=== PATIENT | male | born 1960 | race African-American/Black ===

== ENCOUNTER 2020-05-08 09:27 | Outpatient (REF) | payer MEDICARE, MEDICAID, SELFPAY ==
[2020-05-08 11:08] LABS: MANUAL DIFF FLAG NO
[2020-05-08 11:12] LABS: Basophils Percent Auto 0.2 % (0-2); Eosinophils Absolute Auto 0.2 X10*3/uL (0.0-0.4); Eosinophils Percent Auto 2.9 % (0-4); Hematocrit 39.9 % (42-52); Hemoglobin 12.9 g/dl (14.0-18.0); Imm Gran Abs Auto 0.01 X10*3/uL (0.00-0.03); Imm Gran Pct Auto 0.2 % (0.0-0.4); Lymphocytes Absolute Auto 1.6 X10*3/uL (1.2-4.9); Lymphocytes Percent Auto 29.2 % (20-40); Mean Corpuscular HGB Conc 32.3 g/dl (31.0-36.0); Mean Corpuscular Hemoglobin 30.1 pg (27.0-33.0); Mean Corpuscular Volume 93.2 fL (80-98); Mean Platelet Volume 10.9 fL (9.4-12.4); Monocytes Absolute Auto 0.7 X10*3/uL (0.1-1.2); Monocytes Percent Auto 12.8 % (2-11); Neutrophils Percent Auto 54.7 % (45-73); Platelet Count 270 X10*3/uL (160-400); Red Blood Count 4.28 X10*6/uL (4.60-5.80); Red Cell Distribution Width 15.9 % (11.0-16.0); White Blood Count 5.5 X10*3/uL (4.8-10.8)
[2020-05-08 11:40] LABS: Alanine Aminotransferase 11 U/L (0-40); Albumin Level 4.3 g/dL (3.5-5.0); Alkaline Phosphatase 98 U/L (39-117); Anion Gap 11 (12-20); Aspartate Amino Transferase 22 U/L (5-37); Bilirubin Total 0.7 mg/dL (0.0-1.0); Blood Urea Nitrogen 15 mg/dL (9-16); Calcium 9.6 mg/dL (8.4-10.2); Carbon Dioxide 27 mmol/L (22-29); Chloride 108 mmol/L (96-108); Cholesterol 180 mg/dL; Estimated Glomerular Filt Rate > 60; Glucose Fasting 87 mg/dL (60-99); HDL Cholesterol 39 mg/dL; LDL Cholesterol Calculated 127 mg/dl; Potassium 4.1 mmol/l (3.3-5.1); Sodium 142 mmol/L (135-145); Total Protein 7.6 g/dL (6.5-8.0); Triglycerides 72 mg/dL
== END 2020-05-08 09:28 | disposition home or self-care (01) ==
LOC: HO.HMGCLDS 09:27
PROVIDERS: PCP Internal Medicine; Visit Provider Internal Medicine
DX: I10 Essential (primary) hypertension (principal); E78.89 Other lipoprotein metabolism disorders; R09.81 Nasal congestion; Z86.73 Personal history of transient ischemic attack (TIA), and cerebral infarction without residual deficits
CPT/HCPCS: 36415; 80053; 80061; 85025

== ENCOUNTER → 2020-06-06 14:55 | Outpatient (BNVA) | payer MEDICARE, MEDICAID, SELFPAY | PROVIDERS: PCP Internal Medicine; Referring Provider Internal Medicine; Visit Provider Nurse Practitioner Family | DX: Z01.818 Encounter for other preprocedural examination (principal); I69.351 Hemiplegia and hemiparesis following cerebral infarction affecting right dominant side; Z79.02 Long term (current) use of antithrombotics/antiplatelets | CPT/HCPCS: 99212 ==

== ENCOUNTER → 2020-06-27 09:06 | Outpatient (BNVA) | payer MEDICARE, MEDICAID, SELFPAY | PROVIDERS: PCP Internal Medicine; Referring Provider Internal Medicine; Visit Provider Internal Medicine | DX: Z01.810 Encounter for preprocedural cardiovascular examination (principal); I10 Essential (primary) hypertension; E78.5 Hyperlipidemia, unspecified; Z86.73 Personal history of transient ischemic attack (TIA), and cerebral infarction without residual deficits | CPT/HCPCS: 93005; 99202 ==

== ENCOUNTER 2020-07-12 09:58 | Outpatient (REF) | payer MEDICARE, MEDICAID, SELFPAY ==
--- NOTE | 2020-07-12 10:01 | US_ITS ---
EXAMINATION: US EXTRACRANIAL CAROTID DUPLEX, BILATERAL CLINICAL INFORMATION: Occlusion and stenosis bilateral carotid arteries. COMPARISON: None. TECHNIQUE: Real-time ultrasound and Doppler techniques (integrating B-mode 2-D vascular images, Doppler spectral analysis and color-flow Doppler imaging) were utilized to interrogate the extracranial carotid arteries, the vertebral arteries and proximal subclavian arteries bilaterally. The degree of stenosis is determined by criteria similar to NASCET. FINDINGS: Right Side: 1. There is no atherosclerotic plaque seen in the bifurcation/proximal ICA region. 2. The common carotid artery PSV proximally is 98 cm/s and distally 100 cm/s. 3. The proximal internal carotid artery velocities are 76 cm/s systolic and 79 cm/s diastolic. 4. The proximal external carotid artery PSV is 132 cm/s. 5. The vertebral artery shows antegrade flow. 6. The subclavian artery waveforms are normal. Left Side: 1. There is soft atherosclerotic plaque seen in the bifurcation/proximal ICA region. 2. The common carotid artery PSV proximally is 123 cm/s and distally 98 cm/s. 3. The proximal internal carotid artery velocities are 45 cm/s systolic and 17 cm/s diastolic. 4. The proximal external carotid artery PSV is 87 cm/s. 5. The vertebral artery shows antegrade flow, increased systolic and diastolic velocity, likely a pre-steal phenomena or distal vertebral artery increased resistance. 6. The subclavian artery waveforms are normal. Incidental noted is bilateral enlarged thyroid gland with multiple nodules. The largest right gland nodule measures 1.9 1.3-1.7 cm and the largest left thyroid gland nodule measures 2.5 x 2.4 x 2.3 cm. Also visualized is a small lymph node at the right bifurcation measuring 2.6 x 1.0 x 1.5 cm. US/US carotid duplex BI IMPRESSION: 1. RIGHT: No hemodynamically significant stenosis seen in the carotid artery. 2. LEFT: No hemodynamically significant stenosis in the left carotid artery. 3. There is normal antegrade flow seen in the left vertebral artery. 4. Enlarged thyroid gland with multiple nodules, consistent with goiter. Recommend ultrasound of thyroid gland. A small lymph node is seen at the right carotid bifurcation measuring 2.6 cm.
== END 2020-07-12 09:59 | disposition home or self-care (01) ==
LOC: HO.US 09:58
PROVIDERS: PCP Internal Medicine; Visit Provider Internal Medicine
DX: I63.9 Cerebral infarction, unspecified (principal); I65.23 Occlusion and stenosis of bilateral carotid arteries
CPT/HCPCS: 93880

== ENCOUNTER → 2020-07-20 08:32 | Outpatient (REF) | payer MEDICARE, MEDICAID, SELFPAY ==
--- NOTE | 2020-07-20 | NM_ITS ---
Lexiscan Myocardial perfusion study Indication: Preoperative cardiac evaluation, assess for coronary disease and ischemia Technique: The patient was brought in for a Lexiscan perfusion study on 07/20/2020 and was injected 0.4 mg of Lexiscan intravenously. Within a minute of this injection 30 mCi of sestamibi was given intravenously. Images were obtained using the SPECT gamma camera interlaced with the gating device. Images were obtained in supine position. Resting perfusion study was performed on 07/23/2020. Patient was administered 30 mCi of sestamibi intravenously at rest. Images were then obtained in supine position. Total DLP 69mGy-cm. Images were processed with the software and compared side to side in short axis, horizontal long axis and vertical long axis views. Findings: Raw acquisition was reviewed. The stress perfusion study showed no significant perfusion abnormality. Both uncorrected as well as CT attenuation corrected images were reviewed. The gated study shows normal LV systolic function with calculated LVEF of 60%. LV cavity is normal in size. The gated study shows normal wall thickening and contraction of segments. Resting study shows no significant perfusion abnormality. Gating at rest reveals normal wall motion with ejection fraction at 54%. The findings are consistent with no definite reversible or fixed perfusion abnormality. NM/NM joshua perf SPECT rest & str Impression: 1. Myocardial perfusion imaging study shows likely normal myocardial perfusion. No evidence of any ischemia or infarction. 2. Gated LVEF is 60% during stress; 54% during rest. 3. Transient ischemic dilatation not present. EKG component of the test reported separately.
--- NOTE | 2020-07-20 08:35 | CA_ITS ---
Transthoracic Echocardiogram Patient (Last, First, Middle): Madeleine Singh, Gender: Male Date of : 1960 Age: 60 Procedure Date: 07/20/2020 Procedure Type: Transthoracic Echocardiogram Location: OP Height: 185.42 cm Weight: 99.79 kg BSA: 2.24 m2 Heart Rate: bpm BP: 152 / 78 mmHg Restorative Aide: Referring MD: Kj Anderson MD Symptoms: I25.10 - Atherosclerotic heart disease of grindstone coronary artery without angina pectoris Conclusions: - Normal left ventricular cavity size. There is severely increased left ventricular wall thickness. The left ventricular systolic function is hyperdynamic. - There is dynamic mid left ventricular obstruction. - E/E prime ratio is between 8 and 15 consistent with indeterminate filling pressures. - The left atrium is mildly dilated. - No significant valvular or pericardial pathology. Findings Left Ventricle Normal left ventricular cavity size. There is severely increased left ventricular wall thickness. The left ventricular systolic function is hyperdynamic. The visually estimated ejection fraction is >70%. There is no evidence of regional wall motion abnormalities. There is no dynamic left ventricular outflow tract obstruction. There is dynamic mid left ventricular obstruction. Abnormal diastolic function is noted. Spectral Doppler is indicative of a pseudonormal filling pattern. E/E prime ratio is between 8 and 15 consistent with indeterminate filling pressures. Right Ventricle Normal right ventricular cavity size and systolic function. Atria The left atrium is mildly dilated. Aortic Valve Normal aortic valve structure and function. There is no aortic valve stenosis. There is no aortic valve regurgitation. Mitral Valve Normal mitral valve structure and function. There is no mitral valve regurgitation. There is no mitral valve stenosis. Pulmonic Valve Normal pulmonic valve structure and function. There is trace pulmonic valve regurgitation. Tricuspid Valve Normal tricuspid valve structure and function. There is trace tricuspid valve regurgitation. Normal right atrial pressure. There is no evidence of pulmonary hypertension. Great Vessels All visible segments of the aorta are normal in size. The visualized portions of the pulmonary artery and branches are normal. Venous The inferior vena cava is normal in size and collapses greater than 50% with inspiration. Pericardium/Pleural There is no evidence of pericardial effusion. Prior Study Comparison No prior study available for comparison. Measurements 2D Linear Measurements RVIDd: 2.85 RVIDd Index: 1.27 IVSd: 1.41 0.6-0.9/0.6-1.0 cm LVIDd: 4.52 3.9-5.3/4.2-5.9 cm LVIDd Index: 2.02 2.4-3.2/2.2-3.1 cm/m2 LVIDs: 2.93 2.0-3.6 cm LVPWd: 1.73 0.7-1.1 cm Ao Root: 3.10 2.1-3.5 cm LA Diam: 4.10 2.7-3.8/3.0-4.0 cm LAIDs Index: 1.83 1.5-2.3 cm/m2 LV Mass: 371.39 67-162/88-224 g LV Mass Index: 165.80 43-95/49-115 g/m2 LVOT Diam: 2.00 3.0+(-)1.3 cm 2D Systolic Function EF 4C: 60.30 >55% EF 2C: 63.20 >55% EF BiP: 63.00 >55% Mitral Valve MV Pk E: 0.70 MV PK A: 0.67 MV Decel Time: 226.00 E/A: 1.00 E'Lateral: 5.87 E'Medial: 5.87 E/E' Med: 12.00 E/E' Lat: 12.00 Aortic Valve AoV Pk Guy: 1.81 AoV Mn Guy: 1.19 AoV VTI: 0.38 AoV Pk Grad: 13.00 Aov Mn Grad: 7.00 BELÉN Cont.VTI: 2.67 LVOT LVOT Pk Guy: 1.31 LVOT Mn Guy: 0.92 LVOT VTI: 0.32 LVOT Pk Grad: 7.00 LVOT Mn Grad: 4.00 LVOT Diam: 2.00 LVOT Area: 3.14 Diastolic Function MV Pk E: 0.70 MV Pk A: 0.67 E/A: 1.00 E'Medial: 5.87 E/E' Med: 12.00 E' Laterial: 5.87 E/E' Lat: 12.00 Tricuspid Valve TR Pk Guy: 2.52 TR Pk Grad: 25.00 RA Press: 8.00 RVSP: 33.00 Great Vessels Aorta Ao Root-2D: 3.10 2.0-3.7 cm Ao Asc: 3.30 2.1-3.4 cm Ao Arch: 3.60 Updated in Other Vendor System with Status of Final Samuel Rowe MD electronically signed on 07/20/2020 12:26:03 PM with status of Final
== END ==
LOC: HO.CARD 08:32
PROVIDERS: Visit Provider Internal Medicine
DX: I25.10 Atherosclerotic heart disease of native coronary artery without angina pectoris (principal); Z86.73 Personal history of transient ischemic attack (TIA), and cerebral infarction without residual deficits
CPT/HCPCS: 78452; 93017; 93225; 93306; A9500; J0280; J2785

== ENCOUNTER → 2020-07-25 08:55 | Outpatient (BNVA) | payer MEDICARE, MEDICAID, SELFPAY | PROVIDERS: PCP Internal Medicine; Visit Provider Internal Medicine | DX: Z01.810 Encounter for preprocedural cardiovascular examination (principal); I63.9 Cerebral infarction, unspecified; I10 Essential (primary) hypertension; E78.5 Hyperlipidemia, unspecified | CPT/HCPCS: 99212 ==

== ENCOUNTER 2020-08-23 07:53 | Outpatient (REF) | payer MEDICARE, MEDICAID, SELFPAY ==
--- NOTE | 2020-08-23 07:56 | US_ITS ---
EXAMINATION: US THYROID CLINICAL INFORMATION: Nontoxic multinodular goiter. Male age 60. COMPARISON: None TECHNIQUE: Linear transducer hernandez-scale and color Doppler examination with attention to the region of the thyroid. FINDINGS: SIZE: The gland is enlarged. Measurements of the thyroid lobes and nodules are given in sagittal, anteroposterior and transverse dimensions respectively. Right Thyroid Lobe: 6.2 x 2.7 x 2.6 cm, volume 22.8 mL. Parenchyma: The gland echotexture is homogeneous. Thyroid vascularity is normal. Left Thyroid Lobe: 6.2 x 2.8 x 2.9 cm, volume 26.3 mL. Parenchyma: The gland echotexture is homogeneous. Thyroid vascularity is normal. Isthmus: 0.7 cm in maximum AP dimension. RIGHT THYROID LOBE: There are 2 nodules seen. 1. Location: Middle. Size: 1.6 x 1.4 x 1.2 cm. Nodule characteristics: Heterogeneous solid with punctate internal cystic change and scattered peripheral internodular color flow. No calcification. 2. Location: Inferior. Size: 0.5 x 0.4 x 0.5 cm. Nodule characteristics: Heterogeneous solid with fine peripheral hypoechoic halo. No calcification or color flow. ISTHMUS: No nodules. LEFT THYROID LOBE: There are 4 nodules seen. 1. Location: Superior. Size: 0.5 x 0.4 x 0.6 cm. Nodule characteristics: Solid mild hypoechoic heterogeneous, no calcification. Scant color flow. 2. Location: Middle. Size: 1.0 x 0.6 x 1.1 cm. Nodule characteristics: Heterogeneous solid with some fine peripheral cystic component and mild internal color flow. No calcification. 3. Location: Inferior. Size: 2.5 x 2.3 x 2.4 cm. Nodule characteristics: Heterogeneous solid with scattered internal macrocalcification and some scattered color flow. 4. Location: Inferior. Size: 0.8 x 0.6 x 0.7 cm. Nodule characteristics: Heterogeneous cystic/solid. No calcification or color flow. NODES: No lymphadenopathy is seen in the tissue surrounding the thyroid gland. US/US thyroid IMPRESSION: 1. Enlarged gland with scattered small solid nodules. No visible adenopathy. 2. Dominant heterogeneous solid nodule 2.5 cm with macrocalcification left lobe lower pole. Ultrasound-guided fine-needle aspiration recommended.
== END 2020-08-23 07:54 | disposition home or self-care (01) ==
LOC: HO.US 07:53
PROVIDERS: PCP Internal Medicine; Visit Provider Internal Medicine
DX: E04.2 Nontoxic multinodular goiter (principal)
CPT/HCPCS: 76536

== ENCOUNTER → 2020-08-28 09:08 | Outpatient (BNVA) | payer MEDICARE, MEDICAID, SELFPAY | PROVIDERS: PCP Internal Medicine; Referring Provider Internal Medicine; Visit Provider Internal Medicine Endocrinology, Diabetes & Metabolism | DX: Z76.89 Persons encountering health services in other specified circumstances (principal) | CPT/HCPCS: 99202 ==

== ENCOUNTER 2020-08-28 10:05 | Outpatient (REF) | payer MEDICARE, MEDICAID, SELFPAY ==
[2020-08-29 11:08] LABS: Thyroglobulin Antibodies <1 IU/mL (< or = 1); Thyroid Peroxidase Antibodies <1 IU/mL (<9)
[2020-08-30 07:37] LABS: Thyroid Stimulating Hormone 0.71 uIU/mL (0.32-4.0)
== END 2020-08-28 10:06 | disposition home or self-care (01) ==
LOC: HO.10HDL 10:05
PROVIDERS: Visit Provider Internal Medicine Endocrinology, Diabetes & Metabolism
DX: Z13.89 Encounter for screening for other disorder (principal)
CPT/HCPCS: 36415; 83520; 84439; 84443; 84445; 86376; 86800; 99202

== ENCOUNTER 2020-08-28 10:24 | Outpatient (REF) | payer MEDICARE, MEDICAID, SELFPAY | END 2020-08-28 10:25 | disposition home or self-care (01) | LOC: HO.LAB 10:24 | PROVIDERS: PCP Internal Medicine; Visit Provider Internal Medicine | DX: R13.10 Dysphagia, unspecified (principal); E04.2 Nontoxic multinodular goiter; Z20.822 Contact with and (suspected) exposure to COVID-19 | CPT/HCPCS: 36415; 83520; 84439; 84443; 84445; 86376; 86800; 99202; C9803; U0003 ==

== ENCOUNTER 2020-09-13 08:58 | Outpatient (REF) | payer MEDICARE, MEDICAID, SELFPAY ==
--- NOTE | 2020-09-13 09:37 | PM.OP ---
Brief Operative Note Date of Service: 09/13/20 Pre-op diagnosis: NONTOXIC MULTINODULAR GOITER Post-op diagnosis: same Procedure: This procedure was explained to the patient. Alternatives, risks and benefits were discussed. Written consent was obtained. After sterile preparation of the skin, fine-needle aspiration biopsy of left lower pole thyroid nodule, size 2.5 x 2.3 x 2.4 cm was performed under direct ultrasound guidance to confirm accurate needle placement. Three passes were performed with 27 gauge needles. Sample was submitted to cytology, initial cytology reading was adequate. Two passes were dedicated for [employer] genomic sequencing social media senior associate test. Second fine-needle aspiration biopsy of right mid pole thyroid nodule, size 1.6 x 1.4 x 1.2 cm was performed under direct ultrasound guidance to confirm accurate needle placement. Three passes were performed with 27 gauge needles. Sample was submitted to cytology, initial cytology reading was non diagnostic , three extra passes with 25 gauge needles were performed. Two passes were dedicated for [employer] genomic sequencing social media senior associate test. Patient tolerated procedure well. Aftercare instructions were provided. Impression: uncomplicated fine-needle aspiration biopsy of left lower pole and right mid pole thyroid nodules under direct ultrasound guidance. Surgeon: Cynthia Ugalde MD Anesthesia: local (Lidocaine 1 % 2 ml) Estimated blood loss (mL): 0 Condition: stable Disposition: same day
[2020-09-13] MEDS: Lidocaine HCl 1 % MPF 5 ML VIAL SUBCUT (11:31)
== END 2020-09-13 08:59 | disposition home or self-care (01) ==
LOC: HO.US 08:58
PROVIDERS: Visit Provider Internal Medicine Endocrinology, Diabetes & Metabolism
DX: E04.2 Nontoxic multinodular goiter (principal)
CPT/HCPCS: 10005; 10006; 88172; 88173; 88177

== ENCOUNTER 2020-09-24 11:55 | Outpatient (REF) | payer MEDICARE, MEDICAID, SELFPAY | END 2020-09-24 11:56 | disposition home or self-care (01) | LOC: HO.LAB 11:55 | PROVIDERS: PCP Internal Medicine; Visit Provider Internal Medicine | DX: Z20.822 Contact with and (suspected) exposure to COVID-19 (principal) | CPT/HCPCS: 36415; C9803; U0003; U0005 ==

== ENCOUNTER → 2020-09-26 08:19 | Outpatient (BNVA) | payer MEDICARE, MEDICAID, SELFPAY | PROVIDERS: PCP Internal Medicine; Visit Provider Internal Medicine Endocrinology, Diabetes & Metabolism | CPT/HCPCS: Q3014 ==

== ENCOUNTER 2020-10-11 09:13 | Day surgery (SDC) | payer MEDICARE, MEDICAID, SELFPAY ==
[2020-08-08 19:52] VITALS: BMI 28.2
--- NOTE | 2020-08-13 08:28 | HO.ANESPROP2 ---
HPI - Anesthesia Eval Consult details Narrative: 60yo M for Colonoscopy Cardiac Cleared @ low risk *Plavix* Pt resecheduled to October 2020 d/t having a cold. [facility] Past Medical History Medical History (Updated 08/08/20 @ 19:56 by Claritza Mcdonough RN) Cerebrovascular accident Coronary artery disease History of stroke Hypertension, essential Lipid disorder Other and unspecified hyperlipidemia Family History Family History Father Dementia Mother HTN (hypertension) Surgical History Surgical History History of colonoscopy Social History Social History Alcohol intake: current Alcohol intake frequency: holidays/special occasions only Alcohol type: beer Smoking Status: Never smoker Meds Allergies Allergy/AdvReac Type Severity Reaction Status Date / Time No Known Allergies Allergy Verified 08/08/20 19:59 Home Medications Medication Instructions Recorded Confirmed Type lisinopril 20 mg tablet 20 mg PO DAILY 05/23/20 08/08/20 History clopidogrel 1 tab PO DAILY 08/09/20 08/09/20 History sertraline 1 tab PO BEDTIME 08/09/20 08/09/20 History Exam Exam Date and Time: August 13, 2020 0828 Height,Weight and Vital Signs: Height 6 ft 2 in Weight 99.79 kg Pertinent Lab Results Pertinent Lab Results: Laboratory Tests 05/08/20 05/08/20 09:36 09:36 WBC 5.5 Hgb 12.9 L Hct 39.9 L Plt Count 270 Sodium 142 Potassium 4.1 Chloride 108 Carbon Dioxide 27 BUN 15 Creatinine 1.05 Narrative Narrative: ECHO 07/20/20 Conclusions: - Normal left ventricular cavity size. There is severely increased left ventricular wall thickness. The left ventricular systolic function is hyperdynamic. - There is dynamic mid left ventricular obstruction. - E/E prime ratio is between 8 and 15 consistent with indeterminate filling pressures. - The left atrium is mildly dilated. - No significant valvular or pericardial pathology. EKG 06/2020: NSR @ 67; Nonspecific T wave abn US carotid duplex BILAT IMPRESSION: 1. RIGHT: No hemodynamically significant stenosis seen in the carotid artery. 2. LEFT: No hemodynamically significant stenosis in the left carotid artery. 3. There is normal antegrade flow seen in the left vertebral artery. 4. Enlarged thyroid gland with multiple nodules, consistent with goiter. Recommend ultrasound of thyroid gland. A small lymph node is seen at the right carotid bifurcation measuring 2.6 cm. NM joshua perf SPECT rest & str Impression: 1. Myocardial perfusion imaging study shows likely normal myocardial perfusion. No evidence of any ischemia or infarction. 2. Gated LVEF is 60% during stress; 54% during rest. 3. Transient ischemic dilatation not present. Assessment and Plan Assessment Anesthesia Assessment: Chart Reviewed
[2020-10-05 18:57] VITALS: BMI 28.8
--- NOTE | 2020-10-10 12:24 | P.CONAN_ITS ---
Documented by User: Yessi Alicea 10/10/20 12:26 HPI - Anesthesia Eval Consult details Narrative: 60yo M for Colonoscopy Cardiac Cleared @ low risk *Plavix* Pt resecheduled from Aug 2020 d/t URI. PMFSH Active Problems Active Problems: All Active Problems (Updated 08/28/20 @ 11:59 by Cynthia Ugalde MD) Dysphagia (Acute) Non-toxic multinodular goiter (Acute) Colon cancer screening (Acute) Preoperative cardiovascular examination (Acute) Herpes zoster (Acute) Multiple thyroid nodules (Acute) Other and unspecified hyperlipidemia (Acute) Cerebrovascular accident (Acute) Coronary artery disease (Acute) History of stroke (Acute) Lipid disorder (Acute) Hypertension, essential (Acute) Past Medical History Medical History Cerebrovascular accident Coronary artery disease Dysphagia History of stroke Hypertension, essential Lipid disorder Non-toxic multinodular goiter Other and unspecified hyperlipidemia Family History Family History Father Dementia Mother HTN (hypertension) Surgical History Surgical History History of colonoscopy Social History Social History Household Members: Spouse Alcohol intake: current Alcohol intake frequency: holidays/special occasions only Alcohol type: beer Smoking Status: Never smoker Use of substances other than those prescribed or required for medical reasons: No Substance Use Frequency: Weekly Advance Directives: No Advance Directives Information Provided: No Advance Directives on File: No Meds Allergies Allergy/AdvReac Type Severity Reaction Status Date / Time No Known Allergies Allergy Verified 10/05/20 18:57 Home Medications Medication Instructions Recorded Confirmed Last Taken Type lisinopril 20 mg tablet 20 mg PO DAILY 05/23/20 09/26/20 Unknown History metoprolol tartrate 50 mg tablet 50 mg PO BID tab 08/28/20 10/05/20 Unknown History sertraline 50 mg tablet 50 mg PO BEDTIME 08/28/20 10/05/20 Unknown History Exam Exam Date and Time: October 10, 2020 1224 Height,Weight and Vital Signs: Height 6 ft 2 in Weight 102.058 kg Pertinent Lab Results Pertinent Lab Results: Laboratory Tests 05/08/20 05/08/20 09:36 09:36 WBC 5.5 Hgb 12.9 L Hct 39.9 L Plt Count 270 Sodium 142 Potassium 4.1 Chloride 108 Carbon Dioxide 27 BUN 15 Creatinine 1.05 Narrative Narrative: ECHO 07/20/20 Conclusions: - Normal left ventricular cavity size. There is severely increased left ventricular wall thickness. The left ventricular systolic function is hyperdynamic. - There is dynamic mid left ventricular obstruction. - E/E prime ratio is between 8 and 15 consistent with indeterminate filling pressures. - The left atrium is mildly dilated. - No significant valvular or pericardial pathology. EKG 06/2020: NSR @ 67; Nonspecific T wave abn US carotid duplex BILAT IMPRESSION: 1. RIGHT: No hemodynamically significant stenosis seen in the carotid artery. 2. LEFT: No hemodynamically significant stenosis in the left carotid artery. 3. There is normal antegrade flow seen in the left vertebral artery. 4. Enlarged thyroid gland with multiple nodules, consistent with goiter. Recommend ultrasound of thyroid gland. A small lymph node is seen at the right carotid bifurcation measuring 2.6 cm. NM joshua perf SPECT rest & str Impression: 1. Myocardial perfusion imaging study shows likely normal myocardial perfusion. No evidence of any ischemia or infarction. 2. Gated LVEF is 60% during stress; 54% during rest. 3. Transient ischemic dilatation not present. Assessment and Plan Assessment Anesthesia Assessment: Chart Reviewed Documented by User: Elisa Moreno 10/11/20 09:22 [facility] Past Medical History Medical History Cerebrovascular accident Coronary artery disease Dysphagia History of stroke Hypertension, essential Lipid disorder Non-toxic multinodular goiter Other and unspecified hyperlipidemia Family History Family History Father Dementia Mother HTN (hypertension) Surgical History Surgical History History of colonoscopy Social History Social History (Reviewed 03/11/21 @ 09:20 by Elisa Ortiz Household Members: Spouse Alcohol intake: current Alcohol intake frequency: holidays/special occasions only Alcohol type: beer Smoking Status: Never smoker Use of substances other than those prescribed or required for medical reasons: No Substance Use Frequency: Weekly Advance Directives: No Advance Directives Information Provided: No Advance Directives on File: No Meds Allergies Allergy/AdvReac Type Severity Reaction Status Date / Time No Known Allergies Allergy Verified 10/05/20 18:57 Home Medications Medication Instructions Recorded Confirmed Last Taken Type lisinopril 20 mg tablet 20 mg PO DAILY 05/23/20 09/26/20 Unknown History metoprolol tartrate 50 mg tablet 50 mg PO BID tab 08/28/20 10/05/20 Unknown History sertraline 50 mg tablet 50 mg PO BEDTIME 08/28/20 10/05/20 Unknown History Exam Airway Mallampati Class: II TM Dist: >3cm Neck ROM: Full Partial: Upper and Lower
[2020-10-11] VITALS (7 sets, daily range): BP systolic 119–158; BP diastolic 72–95; PULSE 87–102; RESP 16–18; TEMP 35.9–36.6; O2SAT 99–100
--- NOTE | 2020-10-11 10:16 | P.HPSUR_ITS ---
Pre-Procedural Eval Section B Chief Complaint: screening Relevant Family History (Specify if Yes): No Relevant Social History: None Present Medications: see Short Stay Collaborative assessment Medical History: Significant History (Cerebrovascular accident Coronary artery disease Dysphagia History of stroke Hypertension, essential Lipid disorder Non- toxic multinodular goiter Other and unspecified hyperlipidemia) History of Previous Operations: Relevant previous surgery/procedure and date(s) (colonoscopy) Allergies: Allergies Allergy/AdvReac Type Severity Reaction Status Date / Time No Known Allergies Allergy Verified 10/05/20 18:57 Review of Systems Sugical H&P ROS: Negative: Constitution, Cardiovascular, Respiratory, Neurological, Psychiatric, Hem-Onc, Allergic/Immunologic, Gastrointestinal, Genitourinary, Musculoskeletal, Integumentary, Endocrine and Eyes/Ears/Nose/Throat Exam Surgical H&P Exam: Normal: HEENT, Normal: Heart, Normal: Lungs, Normal: Extremities, Normal: Abdomen, Normal: Skin and Normal: Neurological Plan Diagnosis/Plan: Unchanged I have reviewed the history and physical and performed a pertinent physical examination on my patient. No changes have occurred unless specified.
--- NOTE | 2020-10-11 11:08 | PM.OP ---
Brief Operative Note Date of Service: 10/11/20 Pre-op diagnosis: colon screen Post-op diagnosis: same Procedure: see op note Surgeon: Mary De Leon MD Anesthesia: MAC Estimated blood loss (mL): 0 Condition: stable Disposition: PACU
--- NOTE | 2020-10-11 11:08 | W.PM.OPN ---
Operative Note Operative Note Date of Service: 10/11/20 Narrative: Operative Information Procedure Description: Colonoscopy COLONOSCOPY Instrument: Olympus variable stiffness pediatric scope 190L Colonoscopy Monitoring: Vital signs and clinical assessment, continuous EKG monitoring, Pulse oximetry, Carbon Dioxide monitoring and blood pressure monitoring were done throughout the procedure. Colon withdrawal time was 13 minutes. Procedure: The patient was placed in the left lateral decubitis position and pre-procedure medications were administered. After a digital rectal examination of the ano-rectum, the video colonoscope was inserted into the rectum and advanced through the colon to the cecum/TI. The colonoscope was slowly withdrawn in a retrograde panoramic fashion and the colon mucosa was carefully examined including a retroflexed view of the rectum. Findings and interventions are described below. Procedure Difficulty: moderate, pressure applied LLQ due to looping Findings: Terminal Ileum-normal Cecum:normal Ascending Colon: normal Transverse Colon - 4-5 mm sessile polyp removed with forceps, 12-15 mm sessile polyp removed with cold snare and suctioned after being bisected Descending Colon:normal Sigmoid Colon: 12-15 mm sessile polyp with irregular surface, removed with cold snare. Katelyn ink tattoo was applied distal and proximal to the polyp location. It was 42 cm from anal verge. x2 clips applied to close the defect Rectum: Retroflexion with moderate sized inflammed internal hemorrhoids, grade I Anorectum - normal Colon preparation: [place] Bowel Preparation Scale Right colon; 2 Transverse colon: 3 Left colon; 2 (0 = Unprepared colon segment with mucosa not seen due to solid stool that cannot be cleared. 1 = Portion of mucosa of the colon segment seen, but other areas of the colon segment not well seen due to staining, residual stool and/or opaque liquid. 2 = Minor amount of residual staining, small fragments of stool and/or opaque liquid, but mucosa of colon segment seen well. 3 = Entire mucosa of colon segment seen well with no residual staining, small fragments of stool or opaque liquid) Impression and Post Procedure Diagnosis: polyps internal hemorrhoids Plan: High fiber diet leaflet Avoid straining at stool, epsom salts and sitz bath, anusol supps or cream as needed Repeat Colonoscopy in 1-2 years or earlier if clinically indicated and if path is concerning for dysplasia Above findings were reviewed with the patient and relevant handouts were provided if indicated.
== END 2020-10-11 12:19 | disposition home or self-care (01) ==
PROVIDERS: PCP Internal Medicine; Visit Provider Internal Medicine Gastroenterology
PROC: 0DJD8ZZ Inspection of Lower Intestinal Tract, Via Natural or Artificial Opening Endoscopic (ICD-10-PCS; CPT 45378; principal; 2020-10-11 10:00)
DX: Z12.11 Encounter for screening for malignant neoplasm of colon (principal); D12.3 Benign neoplasm of transverse colon; D12.5 Benign neoplasm of sigmoid colon; K64.0 First degree hemorrhoids; I25.10 Atherosclerotic heart disease of native coronary artery without angina pectoris; I10 Essential (primary) hypertension; I69.351 Hemiplegia and hemiparesis following cerebral infarction affecting right dominant side; Z79.01 Long term (current) use of anticoagulants; Z79.899 Other long term (current) drug therapy
CPT/HCPCS: 45385; 45380; 45381; 88305

== ENCOUNTER 2020-10-29 11:14 | Outpatient (REF) | payer MEDICARE, MEDICAID, SELFPAY | END 2020-10-29 11:15 | disposition home or self-care (01) | LOC: HO.LAB 11:14 | PROVIDERS: Visit Provider Internal Medicine | DX: Z20.822 Contact with and (suspected) exposure to COVID-19 (principal) | CPT/HCPCS: 36415; C9803; U0003; U0005 ==

== ENCOUNTER → 2020-11-01 13:05 | Outpatient (BNVA) | payer MEDICARE, MEDICAID, SELFPAY | PROVIDERS: PCP Internal Medicine; Visit Provider Nurse Practitioner Family | DX: Z13.89 Encounter for screening for other disorder (principal) | CPT/HCPCS: Q3014 ==

== ENCOUNTER 2021-01-18 09:19 | Outpatient (REF) | payer MEDICARE, MEDICAID, SELFPAY ==
[2021-01-18 11:24] LABS: MANUAL DIFF FLAG NO
[2021-01-18 11:43] LABS: Basophils Percent Auto 0.2 % (0-2); Eosinophils Absolute Auto 0.3 X10*3/uL (0.0-0.4); Eosinophils Percent Auto 5.2 % (0-4); Hematocrit 40.1 % (42-52); Hemoglobin 12.9 g/dl (14.0-18.0); Imm Gran Abs Auto 0.02 X10*3/uL (0.00-0.03); Imm Gran Pct Auto 0.4 % (0.0-0.4); Lymphocytes Absolute Auto 1.4 X10*3/uL (1.2-4.9); Lymphocytes Percent Auto 26.2 % (20-40); Mean Corpuscular HGB Conc 32.2 g/dl (31.0-36.0); Mean Corpuscular Volume 93.3 fL (80-98); Mean Platelet Volume 11.6 fL (9.4-12.4); Monocytes Absolute Auto 0.6 X10*3/uL (0.1-1.2); Monocytes Percent Auto 10.9 % (2-11); Neutrophils Percent Auto 57.1 % (45-73); Platelet Count 293 X10*3/uL (160-400); Red Cell Distribution Width 15.6 % (11.0-16.0); White Blood Count 5.2 X10*3/uL (4.8-10.8)
[2021-01-18 11:58] LABS: Alanine Aminotransferase 11 U/L (0-40); Albumin Level 4.1 g/dL (3.5-5.0); Alkaline Phosphatase 96 U/L (39-117); Anion Gap 17 (12-20); Aspartate Amino Transferase 17 U/L (5-37); Bilirubin Direct 0.2 mg/dL (0.0-0.5); Bilirubin Total 0.3 mg/dL (0.0-1.0); Blood Urea Nitrogen 16 mg/dL (9-16); Calcium 9.6 mg/dL (8.4-10.2); Carbon Dioxide 25 mmol/L (22-29); Chloride 105 mmol/L (96-108); Estimated Glomerular Filt Rate > 60; Glucose Random 86 mg/dL (60-115); Potassium 4.7 mmol/L (3.3-5.1); Sodium 142 mmol/L (135-145); Total Protein 7.3 g/dL (6.5-8.0)
[2021-01-18 12:06] LABS: TSH reflex Free T4 1.43 uIU/mL (0.32-4.0)
== END 2021-01-18 09:20 | disposition home or self-care (01) ==
LOC: HO.HMGCLDS 09:19
PROVIDERS: PCP Internal Medicine; Visit Provider Internal Medicine
DX: R13.10 Dysphagia, unspecified (principal); E04.2 Nontoxic multinodular goiter; I10 Essential (primary) hypertension; E78.9 Disorder of lipoprotein metabolism, unspecified; Z86.73 Personal history of transient ischemic attack (TIA), and cerebral infarction without residual deficits
CPT/HCPCS: 36415; 80053; 80076; 82248; 84443; 85025

== ENCOUNTER → 2021-01-22 08:45 | Outpatient (BNVA) | payer MEDICARE, MEDICAID, SELFPAY | PROVIDERS: PCP Internal Medicine; Referring Provider Internal Medicine; Visit Provider Internal Medicine | DX: I63.9 Cerebral infarction, unspecified (principal); I10 Essential (primary) hypertension; E78.5 Hyperlipidemia, unspecified | CPT/HCPCS: 99212 ==

== ENCOUNTER → 2021-04-17 08:53 | Outpatient (BNVA) | payer MEDICARE, MEDICAID, SELFPAY | PROVIDERS: PCP Internal Medicine; Visit Provider Internal Medicine | DX: I63.9 Cerebral infarction, unspecified (principal); I10 Essential (primary) hypertension; I51.7 Cardiomegaly | CPT/HCPCS: 99212 ==

== ENCOUNTER 2021-05-15 15:17 | Emergency (ER) | payer MEDICARE, MEDICAID, SELFPAY ==
[2021-05-15] VITALS (8 sets, daily range): BP systolic 136–211; BP diastolic 88–110; PULSE 88–104; RESP 16–20; TEMP 36.4–36.6; O2SAT 97–99; BMI 27.4
--- NOTE | ~2021-05-15 | MR_ITS ---
EXAMINATION: MR LUMBAR SPINE WITHOUT CONTRAST CLINICAL INFORMATION: Severe pain. Left-sided lumbar back pain radiating into the left lower extremity. COMPARISON: None available. TECHNIQUE: MRI of the lumbar spine was obtained using routine sequences without contrast. FINDINGS: Moderately motion degraded exam. Straightening of the normal lumbar lordosis. Otherwise, normal anatomic alignment. Mild to moderate degenerative disc disease at L3-L4 and L4-L5 with partial loss of disc height and desiccation. Mild degenerative disc disease at all additional lumbar levels. Associated mixed Modic type discogenic endplate changes including minimal Modic type I discogenic edema from L2-L5. No demonstrated additional suspicious marrow edema. Small Schmorl's nodes at L3-L4. Otherwise, the vertebral body heights are largely maintained. The conus medullaris terminates at the level of L1. The distal spinal cord is normal in appearance. No significant abnormalities of the paraspinal musculature. Limited evaluation of the intra-abdominal structures without significant abnormalities. The abdominal aorta is of normal contour and caliber. AXIAL SPINAL LEVELS: L1-L2: Normal annular contour. There is mild bilateral facet joint arthropathy. There is no neural foraminal stenosis. There is no spinal canal stenosis. L2-L3: Shallow diffuse disc bulge. There is mild bilateral facet joint arthropathy. There is no neural foraminal stenosis. There is no spinal canal stenosis. L3-L4: Mild diffuse disc bulge with superimposed right foraminal disc protrusion. There is moderate bilateral facet joint arthropathy. Small left-sided facet joint effusion. There is moderate right and mild left neural foraminal stenosis. There is stenosis of the subarticular zones with no overt spinal canal stenosis centrally. L4-L5: Mild diffuse disc bulge with superimposed shallow central disc protrusion. There is moderate bilateral facet joint arthropathy. There is moderate left and mild right neural foraminal stenosis. There is narrowing of the subarticular zones with no overt spinal canal stenosis centrally. L5-S1: Shallow right foraminal disc protrusion. There is mild bilateral facet joint arthropathy. There is no neural foraminal stenosis. There is no spinal canal stenosis. MR/MR lumbar spine wo con IMPRESSION: Moderately motion degraded exam. Within the limits of this exam, there is no evidence of acute traumatic injury of the lumbar spine. Moderate multilevel degenerative spondyloarthropathy of the lumbar spine as described in detail above. Most notably, there are moderate neural foraminal stenoses at L3-L4 and L4-L5. Narrowings/stenoses of the subarticular zones at L3-L4 and L4-L5. No overt spinal canal stenosis centrally.
--- NOTE | 2021-05-15 15:55 | ED.BACK ---
HPI - Back Pain/Injury General Chief Complaint: Back Pain/Injury Stated Complaint: LOW BACK PAIN,YOKO LEG PAIN S/P MOVING FURNITURE Time Seen by Provider: 05/15/21 15:32 Source: patient and EMS Mode of arrival: EMS History of Present Illness HPI Narrative: 61-year-old male with a past medical history of CVA, CAD, dysphasia, HTN, HLD, tubular adenoma, sent in from urgent care for severe left-sided low back pain radiating down LLE s/p lifting couch last week. Patient reports he was seen at [facility] ED 3x for similar symptoms since incident, currently taking Naproxen, Oxycodone, Prednisone, and Methocarbamol without relief. Denies direct injury/trauma or fall. Admits to associated numbness/tingling down LLE and weakness with inability to ambulate x2 days. Per PCP notes [employer] patient was hypertensive 198/140, given sublingual nitroglycerin and 1 ASA. Denies urinary incontinence/retention, change in bowel habits, fever, chills, abdominal pain, CP/SOB, headache, lightheadedness Related Data Home Medications Medication Instructions Recorded Confirmed sertraline 50 mg tablet 50 mg PO BEDTIME 08/28/20 05/15/21 methocarbamol 750 mg tablet 750 mg PO Q6H PRN 05/15/21 05/15/21 naproxen 500 mg tablet,delayed 1 tab PO BID 05/15/21 05/15/21 release prednisone 20 mg tablet 40 mg PO DAILY 05/15/21 05/15/21 tramadol 50 mg tablet 50 mg PO Q6H PRN 05/15/21 05/15/21 Previous Rx's Medication Instructions Recorded clopidogrel 75 mg tablet 75 mg PO DAILY 90 Days #90 tab 12/26/20 hydrochlorothiazide 25 mg tablet 25 mg PO DAILY #90 tab 01/11/21 simvastatin 40 mg tablet 40 mg PO BEDTIME #90 tab 01/11/21 carvedilol 12.5 mg tablet (Coreg) 12.5 mg PO BID #180 tab 01/22/21 lisinopril 30 mg tablet 30 mg PO DAILY 90 Days #90 tab 04/19/21 lidocaine 5 % topical patch 1 patch TOPICAL DAILY PRN #30 ea 05/16/21 (Lidoderm) MDD remove after 12 hours Allergies Allergy/AdvReac Type Severity Reaction Status Date / Time No Known Allergies Allergy Verified 04/19/21 08:54 Review of Systems Review of Systems: Constitutional: No Fever, No Chills, No Fatigue, No Malaise ENT/Mouth: No Ear Pain, No Nasal Congestion, No sore throat, No Rhinorrhea Eyes: No Eye Pain, No Swelling, No Discharge, No Vision Changes Cardiovascular: No Chest Pain, No SOB, No Palpitations Respiratory: No Cough, No Dyspnea Gastrointestinal: No Nausea, No Vomiting, No Diarrhea, No Constipation, No Abdominal pain Genitourinary: No irregular bleeding, No Dysuria, No Urinary Frequency, No Hematuria, No Urinary Incontinence/retention, No Urgency, No Flank Pain Musculoskeletal: + back pain, No Myalgias, No Joint Swelling Skin: No Skin Lesions, No rash Neuro: No Weakness, + Numbness, + Paresthesias, No Loss of Consciousness, No Dizziness, No Headache Yes all other systems are reviewed and are negative Neurologic: Denies Sensory deficit (Neuro) [facility], [facility] Past Medical History Attestation statement: The following information was validated with the patient. Medical History Cerebrovascular accident Coronary artery disease Dysphagia History of stroke Hypertension, essential Lipid disorder Non-toxic multinodular goiter Other and unspecified hyperlipidemia Tubular adenoma Surgical History History of colonoscopy Family History Family History Father Dementia Mother HTN (hypertension) Brother Mental health disorder Substance use disorder Social History Social History Household Members: Spouse Housing: Condominium Alcohol intake: current Alcohol intake frequency: holidays/special occasions only Patient Tobacco Use Status: Never used Tobacco Second Hand Smoke Exposure: Yes ( smokes) Advance Directives: No Advance Directives Information Provided: No Current occupational status: disabled Physical Exam Vital Signs: Vital Signs: Last Vital Signs Temp 97.7 F 05/15/21 21:55 Pulse 88 05/16/21 00:24 Resp 12 05/16/21 00:24 BP 197/99 H 05/16/21 00:24 Pulse Ox 99 05/16/21 00:24 Body Mass Index 27.4 Const: General: cooperative, healthy appearing and well developed Orientation/consciousness: patient oriented x3 Limitations: no limitations HENMT: Head: Yes normal to inspection Ears: hearing grossly normal bilaterally General nose exam: Normal external nose present Face and sinus: Yes normal facial exam Eyes: General: appearance normal, both eyes and all related structures EOM: EOMs intact bilaterally Neck: Neck: Yes normal visual inspection and Yes no meningeal signs Resp: Effort & Inspection: normal respiratory effort and no respiratory distress Cardio: Rate: regular rate Heart sounds: S1 normal heart sound present and S2 normal heart sound present Peripheral pulses: dorsalis pedis present GI: Inspection: Yes normal to inspection Palpation (GI): Soft to palpation, nontender, no guarding and not rigid Back/Spine/Pelvis: Other: No midline thoracic/lumbar spinous tenderness. + left-sided lumbar paraspinal tenderness to palpation left buttock tenderness to palpation. Thoracic/Lumbar Spine: straight leg raise negative bilaterally Pelvis: no pain with anterior-posterior compression Skin: Rashes: no rashes Wounds: no wounds Neuro: Other: No saddle anesthesia. Perineal sensation intact. Sphincter tone WNL. General: patient oriented x3, tone normal, moves all extremities and no meningeal signs Cranial nerves: Yes CN's II-XII intact bilaterally Cognition (Neuro): normal cognition Motor exam (neuro): 5/5 motor strength present throughout Sensory Exam: Perineum abnormal exam normal; No Sensory deficit (Neuro) Extrem: General: Yes normal to inspection Course Course Course Narrative: -obtained records from [facility], patient was seen on the , , and . Had x-rays of lumbar spine. Have labs that are WNL on the --patient in too much pain to lie flat for MRI after p.o. Valium > IV placed while patient on MRI table & given 4mg of IV Morphine and 4mg of Zofran -1809--patient unable to lie flat for MRI. Will try again at 7:30 p.m. Additionally given IV Toradol and Tylenol -1899--slight CAITLYN with BUN 39, creatinine 1.4 > reports patient with decreased p.o. intake. Low concern for hypertensive emergency at this level. Troponin elevated to 50.5 > patient still denies active chest pain, will obtain 3 hour repeat, could be elevated from renal dysfunction -2236--repeat creatinine improved to 1.3 after IVF. Repeat troponin 69.1, not 50% increase, CT unlikely MR lumbar spine wo con IMPRESSION: Moderately motion degraded exam. Within the limits of this exam, there is no evidence of acute traumatic injury of the lumbar spine. ? Moderate multilevel degenerative spondyloarthropathy of the lumbar spine as described in detail above. Most notably, there are moderate neural foraminal stenoses at L3-L4 and L4-L5. Narrowings/stenoses of the subarticular zones at L3-L4 and L4-L5. No overt spinal canal stenosis centrally. > results discussed with patient and at bedside. Patient would like to try ambulating. If is not able to ambulate will admit for pain control. Case was discussed with hospitalist -0116--patient ambulated steadily in the ED, discussed worrisome signs and symptoms and strict return precautions, need follow-up with Neurosurgery/PCP, he verbalized understanding feel safe for discharge home. Patient hypertensive 190s/117 upon attempted discharge, remains asymptomatic, denies headache/CP/SOB. Will give 5mg of IV Labetalol -repeat BP 175/91. Discussed with patient strict BP monitoring at home, and follow-up with PCP tomorrow, he verbalized understanding feel safe for discharge home MDM - Back Pain/Injury MDM Narrative Medical decision making narrative: 61-year-old male with a past medical history of CVA, CAD, dysphasia, HTN, HLD, tubular adenoma, sent in from urgent care for severe left-sided low back pain radiating down LLE s/p lifting couch last week. Per PCP notes [employer] patient was hypertensive 198/140, given sublingual nitroglycerin and 1 ASA, likely element of pain leading to hypertension. On exam VSS, appears in pain, no midline spinous tenderness throughout, no red flag symptoms, no saddle anesthesia, sphincter tone WNL, concerning for disc herniations/radiculopathy or sciatica vs spasms. Low concern for spinal abscess. Concern HTN secondary to pain. Lower concren for hypertensive urgency/emergency. Rule out ACS. Low concern for cauda equina Case discussed with Dr. Tamez who also evaluated patient Plan: EKG, labs, MRI lumbar spine Medical Records Attestation: I reviewed the patient's medical records. Lab Data Attestation: I reviewed the patient's lab results. Result diagrams: 05/15/21 18:10 10/13/21 21:53 Labs: Lab Results 05/15/21 05/15/21 05/15/21 Range/Units 18:10 18:10 18:10 WBC 11.8 H (4.8-10.8) X10*3/uL RBC 5.04 (4.60-5.80) X10*6/uL Hgb 15.5 D (14.0-18.0) g/dl Hct 44.7 (42-52) % MCV 88.7 (80-98) fL MCH 30.8 (27.0-33.0) pg MCHC 34.7 (31.0-36.0) g/dl RDW 14.5 (11.0-16.0) % Plt Count 356 (160-400) X10*3/uL MPV 10.5 (9.4-12.4) fL Immature Gran % (Auto) 0.8 H (0.0-0.4) % Neut % (Auto) 85.8 H (45-73) % Lymph % (Auto) 7.6 L (20-40) % Corson % (Auto) 5.7 (2-11) % Eos % (Auto) 0.0 (0-4) % Baso % (Auto) 0.1 (0-2) % Lymph # (Auto) 0.9 L (1.2-4.9) X10*3/uL Corson # (Auto) 0.7 (0.1-1.2) X10*3/uL Eos # (Auto) 0.0 (0.0-0.4) X10*3/uL Baso # (Auto) 0.0 (0.0-0.2) X10*3/uL Abs Immat Gran (auto) 0.09 H (0.00-0.03) X10*3/uL Absolute Neuts (auto) 10.1 H (2.0-8.3) X10*3/uL Absolute Nucleated RBC 0.000 (0.0-0.012) X10*3/uL Nucleated RBC % (auto) 0.0 (0.0-0.2) /100WBC ESR 7 (0-15) MM/HR Sodium 138 (135-145) mmol/L Potassium 4.7 (3.3-5.1) mmol/L Chloride 101 (96-108) mmol/L Carbon Dioxide 28 (22-29) mmol/L Anion Gap 14 (12-20) BUN 39 H D (9-16) mg/dL Creatinine 1.43 H (0.5-1.4) mg/dL Estim Creat Clear Calc 61.4 Estimated GFR 50 Random Glucose 117 H D (60-115) mg/dL Calcium 10.8 H D (8.4-10.2) mg/dL Magnesium 2.5 (1.6-2.6) mg/dL Total Bilirubin 0.8 (0.0-1.0) mg/dL Direct Bilirubin 0.4 (0.0-0.5) mg/dL AST 82 H (5-37) U/L ALT 29 (0-40) U/L Alkaline Phosphatase 96 (39-117) U/L Troponin I High Sens (<3.5-35.0) ng/L C-Reactive Protein 0.37 (< or = 0.50) mg/dL B-Natriuretic Peptide (<100) pg/mL Total Protein 8.4 H (6.5-8.0) g/dL Albumin 4.6 (3.5-5.0) g/dL Urine Color Urine Appearance Urine pH (5.0-8.0) Ur Specific Boyers (1.005-1.025) Urine Protein (NEG-TRACE) MG/DL Urine Glucose (UA) (NEG) MG/DL Urine Ketones (NEG) MG/DL Urine Blood (NEG) Urine Nitrite (NEG) Ur Leukocyte Esterase (NEG) COVID-19 (EJ) (Negative) COVID-19 Clin Com 05/15/21 05/15/21 05/15/21 Range/Units 18:10 18:27 21:53 WBC (4.8-10.8) X10*3/uL RBC (4.60-5.80) X10*6/uL Hgb (14.0-18.0) g/dl Hct (42-52) % MCV (80-98) fL MCH (27.0-33.0) pg MCHC (31.0-36.0) g/dl RDW (11.0-16.0) % Plt Count (160-400) X10*3/uL MPV (9.4-12.4) fL Immature Gran % (Auto) (0.0-0.4) % Neut % (Auto) (45-73) % Lymph % (Auto) (20-40) % Corson % (Auto) (2-11) % Eos % (Auto) (0-4) % Baso % (Auto) (0-2) % Lymph # (Auto) (1.2-4.9) X10*3/uL Corson # (Auto) (0.1-1.2) X10*3/uL Eos # (Auto) (0.0-0.4) X10*3/uL Baso # (Auto) (0.0-0.2) X10*3/uL Abs Immat Gran (auto) (0.00-0.03) X10*3/uL Absolute Neuts (auto) (2.0-8.3) X10*3/uL Absolute Nucleated RBC (0.0-0.012) X10*3/uL Nucleated RBC % (auto) (0.0-0.2) /100WBC ESR (0-15) MM/HR Sodium (135-145) mmol/L Potassium (3.3-5.1) mmol/L Chloride (96-108) mmol/L Carbon Dioxide (22-29) mmol/L Anion Gap (12-20) BUN (9-16) mg/dL Creatinine (0.5-1.4) mg/dL Estim Creat Clear Calc Estimated GFR Random Glucose (60-115) mg/dL Calcium (8.4-10.2) mg/dL Magnesium (1.6-2.6) mg/dL Total Bilirubin (0.0-1.0) mg/dL Direct Bilirubin (0.0-0.5) mg/dL AST (5-37) U/L ALT (0-40) U/L Alkaline Phosphatase (39-117) U/L Troponin I High Sens 50.5 H* 69.1 H* (<3.5-35.0) ng/L C-Reactive Protein (< or = 0.50) mg/dL B-Natriuretic Peptide 230 H (<100) pg/mL Total Protein (6.5-8.0) g/dL Albumin (3.5-5.0) g/dL Urine Color YELLOW Urine Appearance CLEAR Urine pH 5.5 (5.0-8.0) Ur Specific Boyers 1.025 (1.005-1.025) Urine Protein TRACE (NEG-TRACE) MG/DL Urine Glucose (UA) NEG (NEG) MG/DL Urine Ketones 15 (NEG) MG/DL Urine Blood NEG (NEG) Urine Nitrite NEG (NEG) Ur Leukocyte Esterase NEG (NEG) COVID-19 (EJ) (Negative) COVID-19 Clin Com 05/15/21 05/15/21 Range/Units 21:53 21:53 WBC (4.8-10.8) X10*3/uL RBC (4.60-5.80) X10*6/uL Hgb (14.0-18.0) g/dl Hct (42-52) % MCV (80-98) fL MCH (27.0-33.0) pg MCHC (31.0-36.0) g/dl RDW (11.0-16.0) % Plt Count (160-400) X10*3/uL MPV (9.4-12.4) fL Immature Gran % (Auto) (0.0-0.4) % Neut % (Auto) (45-73) % Lymph % (Auto) (20-40) % Corson % (Auto) (2-11) % Eos % (Auto) (0-4) % Baso % (Auto) (0-2) % Lymph # (Auto) (1.2-4.9) X10*3/uL Corson # (Auto) (0.1-1.2) X10*3/uL Eos # (Auto) (0.0-0.4) X10*3/uL Baso # (Auto) (0.0-0.2) X10*3/uL Abs Immat Gran (auto) (0.00-0.03) X10*3/uL Absolute Neuts (auto) (2.0-8.3) X10*3/uL Absolute Nucleated RBC (0.0-0.012) X10*3/uL Nucleated RBC % (auto) (0.0-0.2) /100WBC ESR (0-15) MM/HR Sodium 137 (135-145) mmol/L Potassium 4.1 (3.3-5.1) mmol/L Chloride 105 (96-108) mmol/L Carbon Dioxide 22 (22-29) mmol/L Anion Gap 14 (12-20) BUN 38 H (9-16) mg/dL Creatinine 1.31 (0.5-1.4) mg/dL Estim Creat Clear Calc 67.1 Estimated GFR 55 Random Glucose 120 H (60-115) mg/dL Calcium 9.5 D (8.4-10.2) mg/dL Magnesium (1.6-2.6) mg/dL Total Bilirubin (0.0-1.0) mg/dL Direct Bilirubin (0.0-0.5) mg/dL AST (5-37) U/L ALT (0-40) U/L Alkaline Phosphatase (39-117) U/L Troponin I High Sens (<3.5-35.0) ng/L C-Reactive Protein (< or = 0.50) mg/dL B-Natriuretic Peptide (<100) pg/mL Total Protein (6.5-8.0) g/dL Albumin (3.5-5.0) g/dL Urine Color Urine Appearance Urine pH (5.0-8.0) Ur Specific Boyers (1.005-1.025) Urine Protein (NEG-TRACE) MG/DL Urine Glucose (UA) (NEG) MG/DL Urine Ketones (NEG) MG/DL Urine Blood (NEG) Urine Nitrite (NEG) Ur Leukocyte Esterase (NEG) COVID-19 (EJ) Negative (Negative) COVID-19 Clin Com See Note ECG Data Attestation: I personally reviewed and interpreted this ECG as follows: ECG interpretation date: 05/15/21 ECG interpretation time: 16:58 Interpretation: EKG normal sinus rhythm with a rate of [address] and T-wave changes No STEMI Discharge Plan Discharge Clinical Impression: Multilevel neural foraminal stenosis, CAITLYN (acute kidney injury) Hypertension Qualifiers: Hypertension type: unspecified Qualified Code(s): I10 - Essential (primary) hypertension Patient Disposition: Home, Self-Care Instructions: Acute Low Back Pain (ED) Additional Instructions: Continue taking previously prescribed pain medications for your back. Initially your renal function was a little elevated likely from dehydration and her decreased oral intake, make sure you are drinking enough fluids Your MRI shows multilevel degenerative changes and disc bulge at L4/5 however no spinal canal stenosis centrally. It is important for you to follow-up with neurosurgery outpatient. Your blood pressure is elevated today in the emergency department, it is important you to follow-up with her primary care doctor for further management. Do not miss any doses of your home blood pressure medications If symptoms persist or worsen, pain becomes unbearable, you developed urinary retention or incontinence, or weakness return to the ED Prescriptions: New lidocaine [Lidoderm] 5 % adhesive patch,medicated 1 patch topical DAILY MDD remove after 12 hours PRN (Reason: pain) Qty: 30 RF: 0 No Action clopidogrel 75 mg tablet 75 mg PO DAILY 90 Days Qty: 90 RF: 3 hydrochlorothiazide 25 mg tablet 25 mg PO DAILY Qty: 90 RF: 0 simvastatin 40 mg tablet 40 mg PO BEDTIME Qty: 90 RF: 0 sertraline 50 mg tablet 50 mg PO BEDTIME RF: 0 prednisone 20 mg tablet 40 mg PO DAILY RF: 0 naproxen 500 mg tablet,delayed release (DR/EC) 1 tab PO BID RF: 0 tramadol 50 mg tablet 50 mg PO Q6H PRN (Reason: Pain (Scale Score 4-6)) RF: 0 methocarbamol 750 mg tablet 750 mg PO Q6H PRN (Reason: Muscle Spasm) RF: 0 lisinopril 30 mg tablet 30 mg PO DAILY 90 Days Qty: 90 RF: 0 carvedilol [Coreg] 12.5 mg tablet 12.5 mg PO BID Qty: 180 RF: 4 Referrals: Jaskaran Thornton MD [Physician] - 2 days Katelyn Mccoy MD [Physician] - 1 day Karena Alvarez DO [Physician] - 2 days Chantell Nuñez MD [Physician] - 2 days
--- NOTE | 2021-05-15 16:40 | ECG_ITS ---
Test Reason : back pain Blood Pressure : / mmHG Vent. Rate : 088 BPM Atrial Rate : 088 BPM P-R Int : 122 ms QRS Dur : 080 ms QT Int : 378 ms P-R-T Axes : 048 021 -70 degrees QTc Int : 457 ms Normal sinus rhythm Possible Left atrial enlargement Minimal voltage criteria for LVH, may be normal variant ( Sokolow-Avery ) Nonspecific ST and T wave abnormality Abnormal ECG No previous ECGs available Referred By: Yoana Agudelo Electronically Signed By:BRAYAN TUCKER MD
[2021-05-15] MEDS: diazePAM 5 MG TABLET PO (16:59)
[2021-05-15] MEDS: ondansetron HCL 4 MG/2 ML VIAL IVPUSH (17:40)
[2021-05-15] MEDS: Morphine Sulfate 4 MG/ML CARTRIDGE IVPUSH (17:40)
[2021-05-15 18:15] LABS: MANUAL DIFF FLAG NO
[2021-05-15 18:21] LABS: Basophils Percent Auto 0.1 % (0-2); Hematocrit 44.7 % (42-52); Hemoglobin 15.5 g/dl (14.0-18.0); Imm Gran Abs Auto 0.09 X10*3/uL (0.00-0.03); Imm Gran Pct Auto 0.8 % (0.0-0.4); Lymphocytes Absolute Auto 0.9 X10*3/uL (1.2-4.9); Lymphocytes Percent Auto 7.6 % (20-40); Mean Corpuscular HGB Conc 34.7 g/dl (31.0-36.0); Mean Corpuscular Hemoglobin 30.8 pg (27.0-33.0); Mean Corpuscular Volume 88.7 fL (80-98); Mean Platelet Volume 10.5 fL (9.4-12.4); Monocytes Absolute Auto 0.7 X10*3/uL (0.1-1.2); Monocytes Percent Auto 5.7 % (2-11); Neutrophils Absolute Auto 10.1 X10*3/uL (2.0-8.3); Neutrophils Percent Auto 85.8 % (45-73); Platelet Count 356 X10*3/uL (160-400); Red Blood Count 5.04 X10*6/uL (4.60-5.80); Red Cell Distribution Width 14.5 % (11.0-16.0); White Blood Count 11.8 X10*3/uL (4.8-10.8)
[2021-05-15 18:33] LABS: Appearance Urine CLEAR; Color Urine YELLOW; Glucose Urine UA NEG (NEG); Leukocyte Esterase Urine NEG (NEG); Nitrite Urine NEG (NEG); PH 5.5 (5.0-8.0); Specific Gravity - Urine 1.025 (1.005-1.025); Urine Blood NEG (NEG); Urine Ketones 15 MG/DL (NEG); Urine Protein TRACE MG/DL (NEG-TRACE)
[2021-05-15 18:38] LABS: Alanine Aminotransferase 29 U/L (0-40); Albumin Level 4.6 g/dL (3.5-5.0); Alkaline Phosphatase 96 U/L (39-117); Anion Gap 14 (12-20); Aspartate Amino Transferase 82 U/L (5-37); Bilirubin Direct 0.4 mg/dL (0.0-0.5); Bilirubin Total 0.8 mg/dL (0.0-1.0); Blood Urea Nitrogen 39 mg/dL (9-16); C Reactive Protein 0.37 mg/dL (< or = 0.50); Carbon Dioxide 28 mmol/L (22-29); Chloride 101 mmol/L (96-108); Creatinine Clr Calc Pharmacy 61.4; Estimated Glomerular Filt Rate 50; Glucose Random 117 mg/dL (60-115); Potassium 4.7 mmol/L (3.3-5.1); Sodium 138 mmol/L (135-145); Total Protein 8.4 g/dL (6.5-8.0)
[2021-05-15 18:42] LABS: Calcium 10.8 mg/dL (8.4-10.2)
[2021-05-15 18:44] LABS: B Type Natriuretic Peptide 230 pg/mL (<100); Troponin-I High Sensitivity 50.5 ng/L (<3.5-35.0)
[2021-05-15 18:56] LABS: Erythrocyte Sedimentation Rate 7 MM/HR (0-15)
[2021-05-15] MEDS: 0.9 % Sodium Chloride 1,000 ML 999 ML IVCONT ×2 (19:09→19:10)
[2021-05-15] MEDS: Ketorolac Tromethamine 15 MG/ML VIAL 30 MG IVPUSH (19:10)
[2021-05-15] MEDS: Acetaminophen 325 MG TABLET 650 MG PO (19:11)
--- NOTE | 2021-05-15 19:14 | PC.NURSE ---
PT medicated per OCT. Fluids running. PT is waiting to receive repeat MRI.
[2021-05-15 19:23] LABS: Magnesium 2.5 mg/dL (1.6-2.6)
[2021-05-15] MEDS: HYDROmorphone HCl 2 MG/ML VIAL IVPUSH ×2 (19:37→20:32)
--- NOTE | 2021-05-15 20:06 | PC.NURSE ---
PT transported to MRI.
--- NOTE | 2021-05-15 20:21 | PC.NURSE ---
MRI calling, requesting pt be medicated for severe pain as pt is unable to tolerate laying flat for MRI. Per MD, plan for Dilaudid and Decadron. linnette Lee RN to medicate.
[2021-05-15] MEDS: dexAMETHasone sod phosphate 10 MG/ML VIAL IVPUSH (20:32)
--- NOTE | 2021-05-15 21:17 | PC.NURSE ---
Pt remains in MRI at this time. Labs to be obtained upon return.
--- NOTE | 2021-05-15 22:12 | PHA.MEDREC ---
Pharmacy Consult ? Medication Reconciliation Pharmacy has completed the medication reconciliation.
[2021-05-15 22:16] LABS: COVID-19 Test Negative (Negative); IDNOW Serial# 9DD0AD1C
[2021-05-15 22:27] LABS: Anion Gap 14 (12-20); Blood Urea Nitrogen 38 mg/dL (9-16); Calcium 9.5 mg/dL (8.4-10.2); Carbon Dioxide 22 mmol/L (22-29); Chloride 105 mmol/L (96-108); Creatinine Clr Calc Pharmacy 67.1; Estimated Glomerular Filt Rate 55; Glucose Random 120 mg/dL (60-115); Potassium 4.1 mmol/L (3.3-5.1); Sodium 137 mmol/L (135-145)
[2021-05-15 22:28] LABS: Troponin-I High Sensitivity 69.1 ng/L (<3.5-35.0)
[2021-05-15] MEDS: carvediloL 12.5 MG TABLET PO (23:07)
--- NOTE | 2021-05-15 23:09 | PC.NURSE ---
Provider asked this nurse to perform walking test with PT prior to being discharged. PT got up out of bed and immediately reported sudden shooting pain in left knee. PT reports that the pain moved down to his left foot as soon as he put weight on. Walking test was postponed at this time. Provider made aware. PT medicated for hypertension per OCT.
--- NOTE | 2021-05-16 00:13 | PC.NURSE ---
Hospitalist at bedside for primary eval.
[2021-05-16 00:24] VITALS: BP 197/99; PULSE 88; RESP 12; O2SAT 99
[2021-05-16] MEDS: Ketorolac Tromethamine 15 MG/ML VIAL IM (00:26)
[2021-05-16] MEDS: Lidocaine 4 % Patch ADH..PATCH 1 PATCH TRANSDERMA (00:27)
--- NOTE | 2021-05-16 01:13 | PC.NURSE ---
PA at bedside for reeval. Plan to DC home.
[2021-05-16 01:36] VITALS: BP 181/119; PULSE 93
[2021-05-16] MEDS: Labetalol HCL 100 MG/20 ML VIAL IVPUSH (01:36)
[2021-05-16] MEDS: Labetalol HCL 100 MG/20 ML VIAL 10 MG IVPUSH (02:24)
[2021-05-16 02:41] VITALS: BP 163/92; PULSE 90; RESP 16
== END 2021-05-16 02:44 | disposition home or self-care (01) ==
PROVIDERS: Physician Assistant; Emergency Provider Student in an Organized Health Care Education/Training Program
DX: M48.061 Spinal stenosis, lumbar region without neurogenic claudication (principal); N17.9 Acute kidney failure, unspecified; I10 Essential (primary) hypertension; I25.10 Atherosclerotic heart disease of native coronary artery without angina pectoris; Z86.73 Personal history of transient ischemic attack (TIA), and cerebral infarction without residual deficits; Z20.822 Contact with and (suspected) exposure to COVID-19
CPT/HCPCS: 36415; 72148; 80048; 80076; 81003; 83735; 83880; 84484; 85025; 85652; 86140; 87635; 93005; 96361; 96372; 96374; 96375; 96376; 99284; 99285; J1100; J1170; J1885; J2270; J2405

== ENCOUNTER 2021-05-27 12:56 | Emergency (ER) | payer MEDICARE, MEDICAID, SELFPAY ==
[2021-05-27 13:37] VITALS: BP 167/88; PULSE 76; RESP 18; TEMP 36.1; O2SAT 98; BMI 27.6
--- NOTE | 2021-05-27 14:58 | ED.BACK ---
HPI - Back Pain/Injury General Chief Complaint: Back Pain/Injury Stated Complaint: l buttock down to legs pain unable to walk Time Seen by Provider: 05/27/21 16:06 Source: patient Mode of arrival: ambulatory Limitations: no limitations History of Present Illness HPI Narrative: Patient presents to ED for back pain. States history of chronic back issues that has been worse since the 6th of this month. Patient had MRI done also 05/15/21, but does not know results. Patient denies any urinary/bowel incontinence. Patient denies weakness in legs, nausea, vomiting, fever, chills,or any recent trauma to the back or lower extremities. Patient states no dysuria, hematuria, flank pain. Patient denies any abdominal pain. patient states he stopped taking oxycodone because he lucero not like its effect. patient states tramadol, prednisone, and naproxen was effcetive but they ran out. Related Data Home Medications Medication Instructions Recorded Confirmed sertraline 50 mg tablet 50 mg PO BEDTIME 08/28/20 05/15/21 methocarbamol 750 mg tablet 750 mg PO Q6H PRN 05/15/21 05/15/21 naproxen 500 mg tablet,delayed 1 tab PO BID 05/15/21 05/15/21 release prednisone 20 mg tablet 40 mg PO DAILY 05/15/21 05/15/21 tramadol 50 mg tablet 50 mg PO Q6H PRN 05/15/21 05/15/21 Previous Rx's Medication Instructions Recorded clopidogrel 75 mg tablet 75 mg PO DAILY 90 Days #90 tab 12/26/20 hydrochlorothiazide 25 mg tablet 25 mg PO DAILY #90 tab 01/11/21 simvastatin 40 mg tablet 40 mg PO BEDTIME #90 tab 01/11/21 lisinopril 30 mg tablet 30 mg PO DAILY 90 Days #90 tab 04/19/21 lidocaine 5 % topical patch 1 patch TOPICAL DAILY PRN #30 ea 05/16/21 (Lidoderm) MDD remove after 12 hours oxycodone-acetaminophen 5 mg-325 2 tab PO Q8H PRN 10 Days #30 tab 05/17/21 mg tablet (Percocet) carvedilol 25 mg tablet 25 mg PO BID 90 Days #180 tab 05/20/21 diazepam 2 mg tablet (Valium) 2 mg PO BEDTIME PRN 5 Days #5 tab 10/25/21 prednisone 20 mg tablet 60 mg PO DAILY 5 Days #15 tab 05/27/21 tramadol 50 mg tablet 50 mg PO TID PRN #12 tab 05/27/21 Allergies Allergy/AdvReac Type Severity Reaction Status Date / Time No Known Allergies Allergy Verified 04/19/21 08:54 Review of Systems Review of Systems: Yes all other systems are reviewed and are negative Constitutional: Constitutional: Reports as per HPI and Reports no additional constitutional complaints Eyes: Eyes: Reports as per HPI and Reports no additional eye complaints ENT: Reports system reviewed and no additional complaints, except as documented and Reports as per HPI Cardiovascular: Cardiovascular: Reports as per HPI and Reports no additional cardiovascular complaints Respiratory: Respiratory: Reports as per HPI and Reports no additional respiratory complaints Gastrointestinal: Gastrointestinal: Reports as per HPI and Reports no additional gastrointestinal complaints Genitourinary: Genitourinary: Reports no additional male genitourinary complaints and Reports as per HPI Musculoskeletal: Musculoskeletal: Reports no additional musculoskeletal complaints, Reports as per HPI and Reports back pain Neurologic: Reports system reviewed and no additional complaints, except as documented and Reports as per HPI Psychiatric: Psychiatric: Reports no additional psychiatric complaints and Reports as per HPI PMFSH Past Medical History Medical History Cerebrovascular accident Coronary artery disease Dysphagia History of stroke Hypertension, essential Lipid disorder Non-toxic multinodular goiter Other and unspecified hyperlipidemia Tubular adenoma Surgical History History of colonoscopy Family History Family History Father Dementia Mother HTN (hypertension) Brother Mental health disorder Substance use disorder Social History Social History Household Members: [facility] Alcohol intake: current Alcohol intake frequency: holidays/special occasions only Patient Tobacco Use Status: Never used Tobacco Second Hand Smoke Exposure: Yes ( smokes) Advance Directives: No Advance Directives Information Provided: No Current occupational status: disabled Physical Exam Vital Signs: Vital Signs: Last Vital Signs Temp 97 F 05/27/21 13:37 Pulse 76 05/27/21 13:37 Resp 18 05/27/21 16:23 BP 167/88 H 05/27/21 13:37 Pulse Ox 98 05/27/21 13:37 Body Mass Index 27.6 Const: General: cooperative, healthy appearing, comfortable, no acute distress, well developed, alert, awake and Physically active Orientation/consciousness: patient oriented x3 HENMT: Head: Yes normal to inspection, Yes No palpable skull fracture present, Yes normocephalic, Yes atraumatic and No abrasion Eyes: General: appearance normal, both eyes and all related structures Neck: Neck: Yes normal visual inspection, Yes full ROM, Yes no lymphadenopathy, Yes no meningeal signs, Yes trachea midline, Yes supple and No tender Chest: Chest palpation & inspection: normal inspection of the chest and normal palpation of entire chest wall Resp: Effort & Inspection: normal respiratory effort and able to speak in complete sentences Auscultation: clear to auscultation bilaterally Cardio: Jugular venous distension: no JVD Heart sounds: S1 normal heart sound present and S2 normal heart sound present GI: Inspection: Yes normal to inspection and No abdominal wall ecchymosis Palpation (GI): Soft to palpation, not firm, nontender, no guarding and not rigid : General: No CVA tenderness and Yes no CVA tenderness Back/Spine/Pelvis: Other: Causes straight leg test. Patient able to lift both legs up to 70 degrees but with pain. Rectal exam was done. Patient has good rectal/anal tone. Negative for saddle anesthesia. Patient has sensation in perineum saddle, and pubic area. Back: no CVA tenderness, No CVA tenderness and back tenderness (Lumbar tenderness.) Skin: General skin exam: no rashes or lesions noted and elasticity normal Neuro: General: patient oriented x3, gait normal, no meningeal signs and CN's II-XI intact bilaterally Cranial nerves: Yes CN's II-XII intact bilaterally Extrem: General: Yes normal to inspection and Yes full ROM Psych: Appearance: grossly normal, well kempt and not disheveled Course Course Course Narrative: I reviewed patient's chart showed MRI on the 13 of this month which shows severe arthritis with disc bulging negative for signs of cord compression. Physical exam not showing cord compression. Will give pain medication. Reevaluation(s) Reevaluation #1: Patient states pain improved with tramadol, prednisone, Valium. History physical exam does not indicate cord compression. Not suspecting epidural abscess. Denies any drug use or history HIV. No need for repeat imaging. Time: 16:07 MDM - Back Pain/Injury MDM Narrative Medical decision making narrative: Chronic back pain Discharge Plan Discharge Clinical Impression: Chronic lumbar radiculopathy, Sciatica Patient Disposition: Home, Self-Care Instructions: Sciatica (ED), Lumbar Radiculopathy (ED) Additional Instructions: Return to the ED immediately for any urinary/bowel incontinence, paralysis of lower extremities, severe back pain, abdominal pain, dysuria, hematuria, fever, chills, or any other concerning symptoms. Please follow up with PCP and orthopedic Prescriptions: New prednisone 20 mg tablet 60 mg PO DAILY 5 Days Qty: 15 RF: 0 tramadol 50 mg tablet 50 mg PO TID PRN (Reason: pain) Qty: 12 RF: 0 diazepam [Valium] 2 mg tablet 2 mg PO BEDTIME PRN (Reason: muscle spasm) 5 Days Qty: 5 RF: 0 No Action clopidogrel 75 mg tablet 75 mg PO DAILY 90 Days Qty: 90 RF: 3 hydrochlorothiazide 25 mg tablet 25 mg PO DAILY Qty: 90 RF: 0 simvastatin 40 mg tablet 40 mg PO BEDTIME Qty: 90 RF: 0 oxycodone-acetaminophen [Percocet] 5-325 mg tablet 2 tab PO Q8H PRN (Reason: pain) 10 Days Qty: 30 RF: 0 carvedilol 25 mg tablet 25 mg PO BID 90 Days Qty: 180 RF: 1 sertraline 50 mg tablet 50 mg PO BEDTIME RF: 0 prednisone 20 mg tablet 40 mg PO DAILY RF: 0 naproxen 500 mg tablet,delayed release (DR/EC) 1 tab PO BID RF: 0 tramadol 50 mg tablet 50 mg PO Q6H PRN (Reason: Pain (Scale Score 4-6)) RF: 0 methocarbamol 750 mg tablet 750 mg PO Q6H PRN (Reason: Muscle Spasm) RF: 0 lidocaine [Lidoderm] 5 % adhesive patch,medicated 1 patch topical DAILY MDD remove after 12 hours PRN (Reason: pain) Qty: 30 RF: 0 lisinopril 30 mg tablet 30 mg PO DAILY 90 Days Qty: 90 RF: 0 Interventions: ED Discharge Assessment Last Done: 05/27/21 16:24 Discharge Date/Time: 05/27/21 16:24 Print Language: Mauritian
[2021-05-27] MEDS: diazePAM 5 MG TABLET PO (15:05)
[2021-05-27] MEDS: traMADoL HCL 50 MG TABLET PO (15:05)
[2021-05-27] MEDS: predniSONE 20 MG TABLET 60 MG PO (15:05)
[2021-05-27 16:23] VITALS: RESP 18
== END 2021-05-27 16:24 | disposition home or self-care (01) ==
PROVIDERS: Emergency Provider Emergency Medicine; PCP Internal Medicine
DX: M54.16 Radiculopathy, lumbar region (principal); M54.40 Lumbago with sciatica, unspecified side; Z86.73 Personal history of transient ischemic attack (TIA), and cerebral infarction without residual deficits
CPT/HCPCS: 99283; 99284

== ENCOUNTER 2021-07-22 08:00 | Outpatient (RCR) | payer MEDICARE, MEDICAID, SELFPAY ==
--- NOTE | 2021-06-07 10:27 | MHC.PT.EP ---
[facility] [place] Office [place] Office [place] Office [address] Shahnaz Murray [address] [phone] F: [phone] F: [phone] F: [phone] F: [phone] Physical Therapy Plan of Care Date of Evaluation: Date of Surgery: n/a Diagnosis: lumbar pain Assessment: Patient is a 61 year old male presenting to PT with complaints of pain in his low back extending down his L leg. Pt reports onset of pain began 05/08/2021 due to lifting a couch. He presents today with impairments in pain, lumbar ROM, hip strength, core strength, posture, +ttp L lumbar praspinals and piriformis, and numbness/tingling. 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 Pt expresses long term care pharmacist goal of getting better, and is motivated to work towards this in PT. Clinical presentation today is most consistent with signs and sx associated with low back pain that is likely myofascial in nature with some radicular components in addition to MRI findings of stenosis and pt will benefit from skilled PT to address the following problems and impairments noted upon evaluation: pain, lumbar ROM, hip strength, core strength, posture, +ttp L lumbar praspinals and piriformis, and numbness/tingling These problems limit the patient with the following functional activities: coaching basketball, ADLs, bending, lifting, ambulation, stair negotiation. The prescribed treatment plan of care is medically necessary. Co-morbidities of hx stroke 14 years ago, HTN, Left ventricular hypertrophy were identified and taken into considerations of plan of care. Pt was educated on HEP, role of PT, prognosis, POC, anatomy review. Frequency and Duration: The patient will be seen 2 x week x 4 weeks Short Term Goals: Pt will demonstrate improved neurological sx as evidence by min to no instances of numbness and tingling in 2 weeks. Pt will demonstrate improved hip strength by 1/3 MMT in 2 weeks for improved lumbopelvic stability. Pt will demonstrate improved core strength as evidence by good ppt in 2 weeks. Pt will demonstrate lumbar AROM in available range with min to no pain in 2 weeks. Skilled Nursing Goals: Pt will demonstrate ability to ambulate with min to no pain at community distances in 4 weeks to improved independence in the community. Pt will demonstrate ability to complete all lifting and bending ADLs with min to no pain in 4 weeks to allow return to PLOF. Pt will demonstrate ability to negotiate stairs with min to no pain in 4 weeks to improve access to his home. Pt will demonstrate improved Sylvester score by 10% in 4 weeks for improved overall function. Treatment Plan: Modalities to reduce pain, spasms and effusion. Manual therapy to restore motion and function. Therapeutic exercise to improve strength and flexibility. Neuromuscular re-education for posture and balance. Therapeutic activities to return to functional activities of daily living. Electronically signed by: Lea Chowdary, PT, DPT, ATC Please sign and return to therapist. Thank you for your referral.
--- NOTE | 2021-07-30 17:34 | MHC.PT.DC ---
[facility] [place] Office [place] Office [place] Office [address] Shahnaz Murray [address] [phone] F: [phone] F: [phone] F: [phone] F: [phone] Physical Therapy Discharge Report Diagnosis: lumbar pain Date of Surgery: DOI 05/08/21 Date of Evaluation: 06/07/21 Date of Discharge: 07/30/21 Treatments to Date: 11 Cancellations to Date: 3 No Shows to Date: 0 Discharge Status: Achieved Goals Improved Function Independent with HEP Discharge Summary: Per PHOTOGRAPHER APPRENTICE note at last session pt has met all goals and is functionally at his baseline. Therefore skilled PT is no longer indicated at this time and pt to be d/c to HEP. Electronically signed by: Lea Chowdary, PT, DPT, ATC Please sign and return to therapist. Thank you for your referral.
== END 2021-07-30 17:34 | disposition home or self-care (01) ==
LOC: HO.PT 08:00
PROVIDERS: PCP Internal Medicine; Visit Provider Internal Medicine
DX: M54.50 Low back pain, unspecified (principal)
CPT/HCPCS: 97110; 97140; 97162

== ENCOUNTER 2021-08-30 11:27 | Outpatient (REF) | payer MEDICARE, MEDICAID, SELFPAY ==
--- NOTE | ~2021-08-30 | US_ITS ---
EXAMINATION: US THYROID CLINICAL INFORMATION: Nontoxic multinodular goiter. COMPARISON: Ultrasound soft tissue head/neck thyroid dated 08/23/2020. Previous right midpole and left lower pole nodule biopsy was benign on 09/23. TECHNIQUE: Linear transducer grayscale and color Doppler examination with attention to the region of the thyroid. FINDINGS: SIZE: Measurements of the thyroid lobes and nodules are given in sagittal, anteroposterior and transverse dimensions respectively. Right Thyroid Lobe: 7.67 x 2.35 x 1.94 cm, volume 18.3 mL. Previously 6.2 x 2.7 x 2.6 cm, volume 22.8 mL. Parenchyma: The gland echotexture is homogeneous. Thyroid vascularity is normal. Left Thyroid Lobe: 6.74 x 2.84 x 2.45 cm, volume 24.5 mL. Previously 6.2 x 2.8 x 2.9 cm, volume 26.3 mL. Parenchyma: The gland echotexture is homogeneous. Thyroid vascularity is normal. Isthmus: 0.62 cm in maximum AP dimension. Previously 0.70 cm. Estimated total number of nodules greater than or equal to 1 cm: 5. 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 Location: Right mid. Size: 0.82 x 0.60 x 0.60 cm, volume 0.15 mL. Previously: Not seen on the previous study. Nodule characteristics: Composition: Cystic(0). ACR TI-RADS total points: 0 ACR TI-RADS category: 1 2. Location: Right mid. Size: 1.2 x 1.3 x 1.0 cm, volume 0.83 mL. Previously: 1.6 x 1.4 x 1.2 cm, volume 1.1 mL. Nodule characteristics: Composition: Spongiform (0). Echogenicity: Anechoic (0). Shape: Not taller than wide (0). Margins: Smooth (0). Echogenic Foci: None (0). ACR TI-RADS total points: 0 ACR TI-RADS category: 1 Significant change in size (>/= 20% in 2 dimensions and minimal increase of 2 mm or 50% or greater increase in volume): None Change in features: None Change in ACR TI-RADS risk category: Not applicable. 3. Location: Left mid. Size: 1.1 x 0.64 x 0.95 cm, volume 0.40 mL. Previously: 1.0 x 0.60 x 1.1 cm, volume 0.35 mL. Nodule characteristics: Composition: Mixed cystic and solid (1). Echogenicity: Isoechoic (1). Shape: Not taller than wide (0). Margins: Smooth (0). Echogenic Foci: Punctate echogenic foci (3). ACR TI-RADS total points: 5 ACR TI-RADS category: 4 Significant change in size (>/= 20% in 2 dimensions and minimal increase of 2 mm or 50% or greater increase in volume): None Change in features: None Change in ACR TI-RADS risk category: Not applicable. 4. Location: Left inferior. Size: 1.0 x 0.74 x 0.94 cm, volume 0.37 mL. Previously: 0.80 x 0.60 x 0.70 cm, volume 0.18 mL. Nodule characteristics: Composition: Mixed cystic and solid (1). Echogenicity: Hypoechoic (2). Shape: Not taller than wide (0). Margins: Smooth (0). Echogenic Foci: None (0). ACR TI-RADS total points: 3 ACR TI-RADS category: 3 Significant change in size (>/= 20% in 2 dimensions and minimal increase of 2 mm or 50% or greater increase in volume): None Change in features: None Change in ACR TI-RADS risk category: Not applicable. 5. Location: Left inferior. Size: 2.5 x 2.5 x 2.5 cm, volume 8.0 mL. Previously: 2.5 x 2.3 x 2.4 cm, volume 7.2 mL. Nodule characteristics: Composition: Solid/almost completely solid (2). Echogenicity: Hypoechoic (2). Shape: Not taller than wide (0). Margins: Smooth (0). Echogenic Foci: Macrocalcifications (1). Punctate echogenic foci (3). ACR TI-RADS total points: 8 ACR TI-RADS category: 5 Significant change in size (>/= 20% in 2 dimensions and minimal increase of 2 mm or 50% or greater increase in volume): None Change in features: None Change in ACR TI-RADS risk category: Not applicable. NODES: No lymphadenopathy is seen in the tissue surrounding the thyroid gland. US/US thyroid IMPRESSION: Enlarged gland with multiple thyroid nodules, stable. ACR TI-RADS RECOMMENDATION REFERENCE: Ultrasound-guided fine-needle aspiration, followup ultrasound, no further follow up. * TR1 (0 point) and TR 2 (2 points): No FNA or follow up * TR3 (3 points): FNA if more than or equal to 2.5 cm in maximum dimension, followup ultrasound in 1, 3 and 5 years if 1.5 to 2.4 cm in maximum dimension. * TR4 (4-6 points): FNA if more than or equal to 1.5 cm in maximum dimension, followup ultrasound in 1, 2, 3 and 5 years if 1 to 1.4 cm in maximum dimension. * TR5 (more than or equal to 7 points): FNA if more than or equal to 1 cm in maximum dimension, followup ultrasound every year for 5 years if 0.5 to 0.9 cm in maximum dimension. * TR3, TR4 or TR5 nodules that are below the size threshold for follow up receive no follow up.
== END 2021-08-30 11:28 | disposition home or self-care (01) ==
LOC: HO.HMGCX 11:27
PROVIDERS: Visit Provider Internal Medicine
DX: E04.2 Nontoxic multinodular goiter (principal)
CPT/HCPCS: 76536

== ENCOUNTER → 2021-10-28 12:22 | Outpatient (BNVA) | payer MEDICARE, MEDICAID, SELFPAY | PROVIDERS: PCP Internal Medicine; Referring Provider Internal Medicine; Visit Provider Internal Medicine | DX: I51.7 Cardiomegaly (principal); I10 Essential (primary) hypertension | CPT/HCPCS: 99212 ==

== ENCOUNTER → 2021-12-04 11:12 | Outpatient (BNVA) | payer MEDICARE, MEDICAID, SELFPAY | PROVIDERS: PCP Internal Medicine; Visit Provider Internal Medicine | DX: E04.2 Nontoxic multinodular goiter (principal) | CPT/HCPCS: Q3014 ==

== ENCOUNTER 2021-12-16 09:09 | Outpatient (REF) | payer MEDICARE, MEDICAID, SELFPAY ==
[2021-12-16 11:56] LABS: Alanine Aminotransferase 13 U/L (0-40); Alkaline Phosphatase 95 U/L (39-117); Anion Gap 11 (12-20); Aspartate Amino Transferase 17 U/L (5-37); Bilirubin Total 0.5 mg/dL (0.0-1.0); Blood Urea Nitrogen 17 mg/dL (9-16); Calcium 9.8 mg/dL (8.4-10.2); Carbon Dioxide 28 mmol/L (22-29); Chloride 106 mmol/L (96-108); Cholesterol 144 mg/dL; Estimated Glomerular Filt Rate > 60; Glucose Fasting 88 mg/dL (60-99); HDL Cholesterol 31 mg/dL; LDL Cholesterol Calculated 97 mg/dl; Potassium 4.4 mmol/L (3.3-5.1); Sodium 141 mmol/L (135-145); Total Protein 7.1 g/dL (6.5-8.0); Triglycerides 84 mg/dL
[2021-12-16 12:17] LABS: TSH reflex Free T4 1.21 uIU/mL (0.32-4.0)
== END 2021-12-16 09:10 | disposition home or self-care (01) ==
LOC: HO.HMGCLDS 09:09
PROVIDERS: Absent Provider Internal Medicine; PCP Internal Medicine; Referring Provider Internal Medicine; Visit Provider Internal Medicine
DX: E04.2 Nontoxic multinodular goiter (principal); E78.9 Disorder of lipoprotein metabolism, unspecified; I10 Essential (primary) hypertension; I51.7 Cardiomegaly; F33.9 Major depressive disorder, recurrent, unspecified
CPT/HCPCS: 36415; 80053; 80061; 84443

== ENCOUNTER → 2021-12-27 09:42 | Outpatient (BNVA) | payer MEDICARE, MEDICAID, SELFPAY | PROVIDERS: PCP Internal Medicine; Referring Provider Internal Medicine; Visit Provider Nurse Practitioner Family | DX: Z12.11 Encounter for screening for malignant neoplasm of colon (principal); R13.10 Dysphagia, unspecified | CPT/HCPCS: 99212 ==

== ENCOUNTER → 2022-03-17 10:54 | Outpatient (BNVA) | payer MEDICARE, MEDICAID, SELFPAY | PROVIDERS: PCP Internal Medicine; Referring Provider Internal Medicine; Visit Provider Internal Medicine | DX: I51.7 Cardiomegaly (principal); I10 Essential (primary) hypertension | CPT/HCPCS: 99212 ==

== ENCOUNTER 2022-04-23 09:18 | Outpatient (REF) | payer MEDICARE, MEDICAID, SELFPAY ==
--- NOTE | 2022-04-23 09:49 | PM.OP ---
Brief Operative Note Date of Service: 04/23/22 Pre-op diagnosis: Multinodular Thyroid Procedure: Patient presented for FNA biopsy of the thyroid. Informal ultrasound was completed with identification of a RMP 1.3 cm thyroid nodule with irregular margins, an LLP 3.0 cm thyroid nodule with irregular margins, and 2 additional nodules measuring just over 1 cm in the LMP. He had previously undergone FNA biposy 09/13/2020 of his LLP nodule (measuring 2.5 cm at that time) and his RMP (measuring 1.6 cm at that time) both of which were benign. He is complaining of significant dysphagia. We discussed the recommendation for a L hemithyroidectomy given the appearance of the nodules and his compressive symptoms. He and his have agreed to this. I have sent the referral. Surgeon: Layne Manzano, DO Was an Configuration Management Administrator used for this Procedure?: No Estimated blood loss (mL): 0
== END 2022-04-23 09:19 | disposition home or self-care (01) ==
LOC: HO.US 09:18
PROVIDERS: PCP Internal Medicine; Visit Provider Internal Medicine
DX: E04.2 Nontoxic multinodular goiter (principal)
CPT/HCPCS: 76536

== ENCOUNTER 2022-05-06 08:04 | Day surgery (SDC) | payer MEDICARE, MEDICAID, SELFPAY ==
[2022-05-01 10:31] VITALS: BMI 25.1
--- NOTE | 2022-05-05 09:26 | HO.ANESPROP2 ---
Documented by User: Yessi Alicea NP 05/05/22 09:38 HPI - Anesthesia Eval Consult details Narrative: 62yo M for Upper Endoscopy and Colonoscopy Plavix for hx CVA Cardiac cleared s/p Leonard 10/2020 with [facility] Active Problems Active Problems: All Active Problems (Updated 04/11/22 @ 15:59 by Katelyn Mccoy MD) Colon cancer screening (Acute) Preoperative cardiovascular examination (Acute) Herpes zoster (Acute) Multiple thyroid nodules (Acute) Ingrown toenail of right foot (Acute) LVH (left ventricular hypertrophy) (Acute) Uncontrolled hypertension (Acute) Hypertensive urgency (Acute) Left leg weakness (Acute) Diaphoresis (Acute) Acute pain (Acute) Left lumbar radiculitis (Acute) Lumbar pain (Acute) Major depression, recurrent (Acute) Pain management (Acute) Muscle spasm of back (Acute) Medicare annual wellness visit, initial (Acute) Hx of mcc use of blood thinners (Acute) Chronic lower back pain (Acute) Impacted cerumen of both ears (Acute) Contact dermatitis (Acute) Hypertrophic cardiomyopathy (Acute) Tubular adenoma (Acute) Dysphagia (Acute) Non-toxic multinodular goiter (Acute) Other and unspecified hyperlipidemia (Acute) Cerebrovascular accident (Acute) Coronary artery disease (Acute) History of stroke (Acute) Lipid disorder (Acute) Hypertension, essential (Acute) Past Medical History Medical History (Updated 04/11/22 @ 15:59 by Katelyn Mccoy MD) Cerebrovascular accident Coronary artery disease Dysphagia History of stroke Hypertension, essential Lipid disorder Non-toxic multinodular goiter Other and unspecified hyperlipidemia Tubular adenoma Family History Family History Father Dementia Mother HTN (hypertension) Brother Mental health disorder Substance use disorder Surgical History Surgical History (Updated 05/01/22 @ 10:25 by Ada Ramos RN) History of colonoscopy Social History Social History Household Members: Spouse Housing: Condominium Alcohol intake: current Alcohol intake frequency: does not drink Patient Tobacco Use Status: Never used Tobacco e-Cigarette/Vaping Use: Never Used Second Hand Smoke Exposure: Yes ( smokes) Use of substances other than those prescribed or required for medical reasons: No Are you DNR?: No Advance Directives: No Advance Directives Information Provided: Yes service: No Current occupational status: disabled Cognitive needs: No Hearing needs: No Vision needs: No Meds Allergies Allergy/AdvReac Type Severity Reaction Status Date / Time No Known Allergies Allergy Verified 05/06/22 08:09 Home Medications Medication Instructions Recorded Confirmed Last Taken Type sertraline 50 mg tablet 50 mg PO BEDTIME 08/28/20 05/06/22 05/14/21 History naproxen 500 mg tablet,delayed 1 tab PO BID 05/15/21 05/06/22 05/05/22 History release Exam Exam Date and Time: May 05, 2022 09 Height,Weight and Vital Signs: Height 6 ft 2 in Weight 88.677 kg Narrative Narrative: Per 03/2022 Cardiology visit: Echocardiogram with severe left ventricular hypertrophy and hyperdynamic function.? Findings probably from hypertension itself.? Myocardial perfusion imaging study shows likely normal perfusion without any ischemia or infarction.? Carotid Dopplers showed no significant stenosis.? Assessment and Plan Assessment Anesthesia Assessment: Chart Reviewed Documented by User: Elisa Moreno MD 05/06/22 08:55 [facility] Past Medical History Medical History (Updated 04/11/22 @ 15:59 by Katelyn Mcocy MD) Cerebrovascular accident Coronary artery disease Dysphagia History of stroke Hypertension, essential Lipid disorder Non-toxic multinodular goiter Other and unspecified hyperlipidemia Tubular adenoma Family History Family History Father Dementia Mother HTN (hypertension) Brother Mental health disorder Substance use disorder Family history of problems with anesthesia: No Surgical History Surgical History (Updated 05/01/22 @ 10:25 by Ada Ramos RN) History of colonoscopy History of Problems with Anesthesia: No Social History Social History Household Members: [facility] Alcohol intake: current Alcohol intake frequency: does not drink Patient Tobacco Use Status: Never used Tobacco e-Cigarette/Vaping Use: Never Used Second Hand Smoke Exposure: Yes ( smokes) Use of substances other than those prescribed or required for medical reasons: No Are you DNR?: No Advance Directives: No Advance Directives Information Provided: Yes service: No Current occupational status: disabled Cognitive needs: No Hearing needs: No Vision needs: No Meds Allergies Allergy/AdvReac Type Severity Reaction Status Date / Time No Known Allergies Allergy Verified 05/06/22 08:09 Home Medications Medication Instructions Recorded Confirmed Last Taken Type sertraline 50 mg tablet 50 mg PO BEDTIME 08/28/20 05/06/22 05/14/21 History naproxen 500 mg tablet,delayed 1 tab PO BID 05/15/21 05/06/22 05/05/22 History release Exam Airway Mallampati Class: II TM Dist: >3cm Neck ROM: Full Denture: Upper and Lower Assessment and Plan Assessment Anesthesia Assessment: Anesthesia Plan Discussed Final Anesthetic Review Family History of Problems with Anesthesia: No History of Problems with Anesthesia: No NPO: Yes ASA Class: III Final Preanesthetic Review: No Changes in Pt Med Stat, Meds/Allgs Chart Reviewed, Consent Obtained/Reviewed and Anes Risks/Benef Reviewed Patient Risk: Intermediate Procedure Risk: Low Anesthetic Plan Anesthetic Plan: MAC: Disposition: Standard PACU
[2022-05-06 08:13] VITALS: BP 138/70; PULSE 62; RESP 16; TEMP 36.5; O2SAT 100; BMI 25.7
[2022-05-06] MEDS: Lactated Ringers 1,000 ML 100 ML IVCONT (08:33)
--- NOTE | 2022-05-06 08:43 | P.HPSUR_ITS ---
Pre-Procedural Eval Section A Date of Service: 05/06/22 Section B Chief Complaint: Dysphagia,screening Relevant Family History (Specify if Yes): No Relevant Social History: None Present Medications: see Short Stay Collaborative assessment Medical History: Significant History (Cerebrovascular accident Coronary artery disease Dysphagia History of stroke Hypertension, essential Lipid disorder Non- toxic multinodular goiter Other and unspecified hyperlipidemia Tubular adenoma) History of Previous Operations: Relevant previous surgery/procedure and date(s) (History of colonoscopy) Allergies: Allergies Allergy/AdvReac Type Severity Reaction Status Date / Time No Known Allergies Allergy Verified 05/06/22 08:09 Review of Systems Sugical H&P ROS: Negative: Constitution, Cardiovascular, Respiratory, Neurological, Psychiatric, Hem-Onc, Allergic/Immunologic, Gastrointestinal, Genitourinary, Musculoskeletal, Integumentary, Endocrine and Eyes/Ears/Nose/Throat Exam Surgical H&P Exam: Normal: HEENT, Normal: Heart, Normal: Lungs, Normal: Extremities, Normal: Abdomen, Normal: Skin and Normal: Neurological Plan Diagnosis/Plan: Unchanged I have reviewed the history and physical and performed a pertinent physical examination on my patient. No changes have occurred unless specified.
--- NOTE | 2022-05-06 09:21 | P.OP_ITS ---
Operative Note Operative Note Date of Service: 05/06/22 Narrative: Operative Information Procedure Description: EGD, Colonoscopy Indication: dysphagia, screening, hx of polyps Anesthesia: MAC FLEXIBLE TRANSORAL UPPER GASTROINTESTINAL ENDOSCOPY AND COLONOSCOPY PROCEDURE NOTE UPPER ENDOSCOPY Consent: Indications for the procedure and potential complications of bleeding, perforation, reaction to medications and missed diagnosis were discussed with the patient and informed consent was obtained. Instrument: Olympus GIF H 190 J mid size upper endoscope Monitoring: Vital signs and clinical assessment, continuous EKG monitoring, Pulse oximetry, Carbon Dioxide monitoring and blood pressure monitoring were done throughout the procedure. Procedure: The patient was placed in the left lateral decubitis position and pre-procedure medications were administered and a bite block was placed. The endoscope was inserted into the mouth and advanced under direct vision to the third part of duodenum. A careful inspection was made as the upper endoscope was withdrawn including a retroflexed examination of the proximal stomach; Findings and interventions are described below. Findings: Larynx:normal Esophagus: GE junction at 40 cm, diaphragm hiatus at 40 cm, esophagitis at GEJ, granular appearing mucosa, bx taken from GEJ, distal and proximal esophagus. dialted with balloon at LES to 16 mm and UES to 16 mm-no tears seen. Stomach:intense streaky and patchy areas of erythema with rugged mucosa joanna mid body. Biopsies were obtained. Grade 2 flap valve on retroflexed examination of the cardia. Duodenum: Normal bulb and descending duodenum, Intervention: Biopsies as noted above COLONOSCOPY Instrument: Olympus variable stiffness pediatric scope 190L Colonoscopy Monitoring: Vital signs and clinical assessment, continuous EKG monitoring, Pulse oximetry, Carbon Dioxide monitoring and blood pressure monitoring were done throughout the procedure. Colon withdrawal time was 10 minutes. Procedure: The patient was placed in the left lateral decubitis position and pre-procedure medications were administered. After a digital rectal examination of the ano-rectum, the video colonoscope was inserted into the rectum and advanced through the colon to the cecum/TI. The colonoscope was slowly withdrawn in a retrograde panoramic fashion and the colon mucosa was carefully examined including a retroflexed view of the rectum. Findings and interventions are described below. Procedure Difficulty:easy Findings: Terminal Ileum-normal Cecum:normal Ascending Colon: x1 sessile polyp 11-12 mm removed with cold snare, x 1 sessile polyp 6-7 mm removed with cold forceps Transverse Colon -normal Descending Colon:x2 sessile polyps noted 7-9 mm, x 1 removed with forceps and t he other with cold snare Sigmoid Colon: normal Rectum: Retroflexion with moderate sized internal hemorrhoids, grade I with red sheldon Anorectum - normal Colon preparation: Shonto Bowel Preparation Scale Right colon; 2 Transverse colon: 1 Left colon; 2 (0 = Unprepared colon segment with mucosa not seen due to solid stool that cannot be cleared. 1 = Portion of mucosa of the colon segment seen, but other areas of the colon segment not well seen due to staining, residual stool and/or opaque liquid. 2 = Minor amount of residual staining, small fragments of stool and/or opaque liquid, but mucosa of colon segment seen well. 3 = Entire mucosa of colon segment seen well with no residual staining, small fragments of stool or opaque liquid) Impression and Post Procedure Diagnosis: Endoscopy Findings: gastritis esophagitis Colonoscopy Findings: polyps internal hemorrhoids Plan: Await Pathology results Repeat Colonoscopy in 1-2 years due to polyps and poor prep transverse colon or earlier if clinically indicated High fiber diet leaflet avoid straining at stool, epsom salts and sitz bath, anusol supps or cream await bx, if pos then treat for h pylori, may benefit from PPI Above findings were reviewed with the patient and relevant handouts were provided if indicated.
--- NOTE | 2022-05-06 09:31 | PC.NURSE ---
Patient medications reconciled in preop. Patient takes Plavix PO daily and states nobody told me stop this medication before procedure . Last dose was taken yesterday, 05/05, morning. Last dose of Naproxen also taken yesterday on 05/05. Dr. De Leon made aware of this. Per MD, this is okay. May proceed with procedure.
[2022-05-06 10:27] VITALS: BP 116/63; PULSE 72; RESP 16; TEMP 36.6; O2SAT 99
[2022-05-06 10:41] VITALS: BP 146/81; PULSE 58; RESP 16; O2SAT 99
[2022-05-06 10:54] VITALS: BP 144/74; PULSE 62; RESP 16; O2SAT 99
== END 2022-05-06 11:39 | disposition home or self-care (01) ==
PROVIDERS: PCP Internal Medicine; Visit Provider Internal Medicine Gastroenterology
PROC: (CPT 45385; principal; 2022-05-06 09:20)
DX: Z12.11 Encounter for screening for malignant neoplasm of colon (principal); Z86.010 Personal history of colon polyps; D12.2 Benign neoplasm of ascending colon; K63.5 Polyp of colon; K64.0 First degree hemorrhoids; R13.10 Dysphagia, unspecified; K29.50 Unspecified chronic gastritis without bleeding; B96.81 Helicobacter pylori [H. pylori] as the cause of diseases classified elsewhere; K20.80 Other esophagitis without bleeding; K44.9 Diaphragmatic hernia without obstruction or gangrene; I25.10 Atherosclerotic heart disease of native coronary artery without angina pectoris; I10 Essential (primary) hypertension; E78.5 Hyperlipidemia, unspecified; Z79.899 Other long term (current) drug therapy; Z79.1 Long term (current) use of non-steroidal anti-inflammatories (NSAID); Z86.73 Personal history of transient ischemic attack (TIA), and cerebral infarction without residual deficits
CPT/HCPCS: 45385; 45380; 43249; 43239; 88305; 88342; C1726; J2250

== ENCOUNTER → 2022-05-19 07:42 | Outpatient (BNVA) | payer MEDICARE, MEDICAID, SELFPAY | PROVIDERS: PCP Internal Medicine; Referring Provider Internal Medicine; Visit Provider Nurse Practitioner Family | DX: A04.8 Other specified bacterial intestinal infections (principal); K21.00 Gastro-esophageal reflux disease with esophagitis, without bleeding; D36.9 Benign neoplasm, unspecified site; Z98.890 Other specified postprocedural states | CPT/HCPCS: 99212 ==

== ENCOUNTER 2022-05-23 09:09 | Outpatient (REF) | payer MEDICARE, MEDICAID, SELFPAY ==
[2022-05-23 12:12] LABS: Free T4 (Free Thyroxine) 0.93 ng/dL (0.71-1.85); Thyroid Stimulating Hormone 0.65 uIU/mL (0.32-4.0)
== END 2022-05-23 09:10 | disposition home or self-care (01) ==
LOC: HO.HMGCLDS 09:09
PROVIDERS: Absent Provider Internal Medicine; PCP Internal Medicine; Visit Provider Internal Medicine
DX: E04.2 Nontoxic multinodular goiter (principal)
CPT/HCPCS: 36415; 84439; 84443

== ENCOUNTER → 2022-05-26 07:52 | Outpatient (BNVA) | payer MEDICARE, MEDICAID, SELFPAY | PROVIDERS: PCP Internal Medicine; Visit Provider Internal Medicine | DX: E04.2 Nontoxic multinodular goiter (principal); E55.9 Vitamin D deficiency, unspecified | CPT/HCPCS: 99212 ==

== ENCOUNTER → 2022-08-26 08:17 | Outpatient (BNVA) | payer MEDICARE, MEDICAID, SELFPAY | PROVIDERS: PCP Internal Medicine; Visit Provider Psychiatry & Neurology Neurology | DX: I69.351 Hemiplegia and hemiparesis following cerebral infarction affecting right dominant side (principal); R41.3 Other amnesia; R06.83 Snoring; R47.89 Other speech disturbances | CPT/HCPCS: 99202 ==

== ENCOUNTER → 2022-10-16 09:20 | Outpatient (REF) | payer MEDICARE, MEDICAID, SELFPAY ==
--- NOTE | ~2022-10-16 | US_ITS ---
EXAMINATION: US EXTRACRANIAL CAROTID DUPLEX, BILATERAL CLINICAL INFORMATION: Cerebral infarction. COMPARISON: 07/12/2020. TECHNIQUE: Real-time ultrasound and Doppler techniques (integrating B-mode 2-D vascular images, Doppler spectral analysis and color-flow Doppler imaging) were utilized to interrogate the extracranial carotid arteries, the vertebral arteries and proximal subclavian arteries bilaterally. The degree of stenosis is determined by criteria similar to NASCET. FINDINGS: RIGHT SIDE: 1. There is mild atherosclerotic plaque seen in the bifurcation/proximal ICA region. 2. The common carotid artery PSV proximally is 89 cm/s and distally 93 cm/s. 3. The proximal internal carotid artery velocities are 83 cm/s systolic and 30 cm/s diastolic. 4. The proximal external carotid artery PSV is 133 cm/s. 5. The vertebral artery shows antegrade flow. 6. The subclavian artery waveforms are normal. LEFT SIDE: 1. There is mild atherosclerotic plaque seen in the bifurcation/proximal ICA region. 2. The common carotid artery PSV proximally is 110 cm/s and distally 87 cm/s. 3. The proximal internal carotid artery velocities are 61 cm/s systolic and 13 cm/s diastolic. 4. The proximal external carotid artery PSV is 98 cm/s. 5. The vertebral artery shows antegrade flow. 6. The subclavian artery waveforms are normal. Incidental note made of an enlarged lymph node in the right upper neck measuring 2.8 x 0.8 x 0.8 cm and bilateral thyroid nodules, which have been studied in the past. US/US carotid duplex BI IMPRESSION: 1. RIGHT: Minimal, non-hemodynamically significant stenosis of the proximal right internal carotid artery corresponding to a 0-49% stenosis by velocity criteria. 2. LEFT: Minimal, non-hemodynamically significant stenosis of the proximal left internal carotid artery corresponding to a 0-49% stenosis by velocity criteria. 3. Plaque has developed at the right bifurcation since the prior study but velocities remain within the normal range. No interval change is seen on the left.
== END ==
LOC: HO.SL 09:20
PROVIDERS: PCP Internal Medicine; Visit Provider Psychiatry & Neurology Neurology
DX: R06.83 Snoring (principal); G47.10 Hypersomnia, unspecified; Z86.73 Personal history of transient ischemic attack (TIA), and cerebral infarction without residual deficits
CPT/HCPCS: 93880

== ENCOUNTER 2022-10-22 08:15 | Outpatient (REF) | payer MEDICARE, MEDICAID, SELFPAY ==
--- NOTE | ~2022-10-22 | MR_ITS ---
EXAMINATION: MRI OF THE BRAIN WITHOUT CONTRAST CLINICAL INFORMATION: Memory change. COMPARISON: There are no prior studies available for comparison at time of dictation. TECHNIQUE: MRI of the brain was obtained using routine sequences without contrast. FINDINGS: No diffusion abnormalities are identified to suggest an acute or subacute infarct. No mass effect or midline shift is seen. There is mild commensurate prominence of the ventricles and sulci. There is a small cavum septum pellucidum and vergae There are areas of hyperintense T2 and FLAIR signal along the body of the left lateral ventricle with adjacent ex vacuo dilatation, consistent with sequelae of a chronic infarct. There is no abnormal gradient signal in this region. In addition, there are chronic lacunar infarcts in the left basal ganglia and left thalamus. There is minimal left cerebral peduncle Wallerian degeneration. In addition to the signal changes described above, there are areas of increased T2 and FLAIR signal in the centra semiovale bilaterally, and there is a chronic lacunar infarct in the right centrum semiovale body. No extra-axial fluid collections are seen. The cerebellum appears normal. No pathologic magnetic susceptibility artifact is identified on the gradient refocused acquisition. The craniovertebral junction, marrow signal, and midline structures are normal. The major intracranial flow-voids at the level of the morongo of [place] are preserved. The dural venous sinus flow-voids are maintained. The mastoid air cells are extensively pneumatized. They are well-aerated. There is mild mucoperiosteal thickening in the bilateral ethmoid, and in the right maxillary and frontal sinuses. MR/MR head/brain wo con IMPRESSION: 1. There are no acute bleeds or territorial infarcts. No masses are demonstrated. 2. There are sequelae of a chronic infarct in the left periventricular white matter, and there are chronic lacunar infarcts in the left basal ganglia, left thalamus and right centrum semiovale. There are also chronic microvascular ischemic changes and there is diffuse volume loss.
== END 2022-10-22 08:16 | disposition home or self-care (01) ==
LOC: HO.MRI 08:15
PROVIDERS: PCP Internal Medicine; Visit Provider Psychiatry & Neurology Neurology
DX: R41.3 Other amnesia (principal)
CPT/HCPCS: 70551

== ENCOUNTER → 2022-11-10 09:27 | Outpatient (BNVA) | payer MEDICARE, MEDICAID, SELFPAY | PROVIDERS: PCP Internal Medicine; Referring Provider Internal Medicine; Visit Provider Internal Medicine | DX: I11.9 Hypertensive heart disease without heart failure (principal) | CPT/HCPCS: 93005; 99212 ==

== ENCOUNTER → 2022-12-08 12:46 | Outpatient (BNVA) | payer MEDICARE, MEDICAID, SELFPAY | PROVIDERS: PCP Internal Medicine; Visit Provider Internal Medicine | DX: E04.2 Nontoxic multinodular goiter (principal); E89.0 Postprocedural hypothyroidism; E55.9 Vitamin D deficiency, unspecified | CPT/HCPCS: 99212 ==

== ENCOUNTER 2022-12-10 11:51 | Outpatient (REF) | payer MEDICARE, MEDICAID, SELFPAY ==
[2022-12-10 14:16] LABS: MANUAL DIFF FLAG NO
[2022-12-10 14:28] LABS: Basophils Percent Auto 0.1 % (0-2); Eosinophils Absolute Auto 0.2 X10*3/uL (0.0-0.4); Eosinophils Percent Auto 2.9 % (0-4); Hematocrit 32.2 % (42.0-52.0); Hemoglobin 10.3 g/dl (14.0-18.0); Imm Gran Abs Auto 0.03 X10*3/uL (0.00-0.03); Imm Gran Pct Auto 0.4 % (0.0-0.4); Lymphocytes Absolute Auto 1.2 X10*3/uL (1.2-4.9); Lymphocytes Percent Auto 16.8 % (20-40); Mean Corpuscular Hemoglobin 29.3 pg (27.0-33.0); Mean Corpuscular Volume 91.7 fL (80.0-98.0); Mean Platelet Volume 10.2 fL (9.4-12.4); Monocytes Absolute Auto 0.8 X10*3/uL (0.1-1.2); Monocytes Percent Auto 10.8 % (2-11); Platelet Count 385 X10*3/uL (160-400); Red Blood Count 3.51 X10*6/uL (4.60-5.80); Red Cell Distribution Width 15.2 % (11.0-16.0); White Blood Count 7.3 X10*3/uL (4.8-10.8)
[2022-12-10 15:12] LABS: Erythrocyte Sedimentation Rate 73 MM/HR (0-15)
[2022-12-10 15:17] LABS: Calcium 9.7 mg/dL (8.4-10.2)
[2022-12-10 15:18] LABS: Alanine Aminotransferase 7 U/L (0-40); Albumin Level 3.7 g/dL (3.5-5.0); Alkaline Phosphatase 88 U/L (39-117); Anion Gap 11 (12-20); Aspartate Amino Transferase 14 U/L (5-37); Bilirubin Total 0.5 mg/dL (0.0-1.0); Blood Urea Nitrogen 24 mg/dL (9-16); Calcium 9.6 mg/dL (8.4-10.2); Carbon Dioxide 29 mmol/L (22-29); Chloride 106 mmol/L (96-108); Estimated Glomerular Filt Rate > 60; Glucose Random 102 mg/dL (60-115); Phosphorus 3.2 mg/dL (2.7-4.5); Potassium 4.6 mmol/L (3.3-5.1); Sodium 141 mmol/L (135-145); Total Protein 7.4 g/dL (6.5-8.0)
[2022-12-10 15:28] LABS: Vitamin D 25-OH Total 10.3 ng/mL (>30)
[2022-12-10 15:39] LABS: Folate 9.3 ng/mL (> or = 4.0); Thyroid Stimulating Hormone 1.33 uIU/mL (0.32-4.0); Vitamin B12 226 pg/mL (200-900)
[2022-12-12 05:33] LABS: Lyme Abs Screen <0.90 index
[2022-12-12 07:53] LABS: LDL Cholesterol Direct 83 mg/dL (<100)
[2022-12-12 15:33] LABS: Calcium (PTHI) 9.8 mg/dL (8.6-10.3); PTHI 36 pg/mL (16-77)
== END 2022-12-10 11:52 | disposition home or self-care (01) ==
LOC: HO.HMGCLDS 11:51
PROVIDERS: Internal Medicine; Psychiatry & Neurology Neurology; PCP Internal Medicine; Visit Provider Internal Medicine
DX: Z00.01 Encounter for general adult medical examination with abnormal findings (principal); R41.3 Other amnesia; E78.9 Disorder of lipoprotein metabolism, unspecified; I10 Essential (primary) hypertension; I42.2 Other hypertrophic cardiomyopathy; R68.89 Other general symptoms and signs; M19.90 Unspecified osteoarthritis, unspecified site; E55.9 Vitamin D deficiency, unspecified; E04.2 Nontoxic multinodular goiter; E89.0 Postprocedural hypothyroidism; Z86.73 Personal history of transient ischemic attack (TIA), and cerebral infarction without residual deficits
CPT/HCPCS: 36415; 80053; 82306; 82310; 82607; 82746; 83721; 83970; 84100; 84439; 84443; 85025; 85652; 86617; 86618

== ENCOUNTER 2022-12-28 07:06 | Emergency (ER) | payer MEDICARE, MEDICAID, SELFPAY ==
--- NOTE | ~2022-12-28 | XR_ITS ---
EXAMINATION: XR KNEE, LEFT CLINICAL INFORMATION: Pain and swelling COMPARISON: None available. TECHNIQUE: Four views of the left knee. FINDINGS: Alignment is anatomic. Mild medial compartment joint space narrowing. No acute fracture or dislocation is seen. Small-moderate effusion suspected.. 1.1 cm focus of calcification anteromedially, appearing to be within the soft tissues, of indeterminate etiology, has a chronic appearance.. XR/XR knee LT 3V IMPRESSION: Mild medial compartment arthritis. No evidence of acute fracture or dislocation. Suspected small-moderate effusion. Nonspecific 1.1 cm focus of soft tissue calcification.
--- NOTE | ~2022-12-28 | CT_ITS ---
EXAMINATION: CT HEAD WITHOUT CONTRAST CLINICAL INFORMATION: Left-sided weakness x2 weeks. Lack stiffness COMPARISON: MRI brain 10/22/2022. TECHNIQUE: Contiguous axial imaging was performed from the skull base to vertex without intravenous administration of contrast. This CT examination was performed using dose optimization techniques as appropriate, variously including the following: *Automated exposure control *Adjustment of mA and/or kV according to patient size (this includes techniques or standardized protocols for targeted exams where dose is matched to indication/reason for exam; i.e. extremities or head) *Use of iterative reconstruction technique DLP: 680 mGy-cm FINDINGS: There is no acute intra-axial, extra-axial bleed, masses or midline shift. There is a hypodensity in left centrum semiovale extending to genu and posterior external capsule consistent with old infarct. There is no acute infarct in evolution. There is increased hypodensity in periarticular white matter both cerebral hemispheres slightly greater on the left. Bone windows reveal no calvarial abnormality. There is no scalp soft tissue abnormality. Bilateral paranasal sinuses and mastoid air cells are well-aerated. CT/CT head/brain wo IV con IMPRESSION: 1. No acute intracranial process seen. 2. Old left centrum semiovale and posterior external capsule infarct. 3. Chronic small vessel ischemic changes in both cerebral hemispheres.
[2022-12-28 07:19] VITALS: BP 152/76; PULSE 96; RESP 20; O2SAT 100; BMI 25.7
--- NOTE | 2022-12-28 07:27 | ED.NEUROSD ---
HPI - Neuro Symptoms/Deficit General Chief Complaint: Extremity Problem Stated Complaint: left leg swollen Time Seen by Provider: 12/28/22 07:19 Source: patient and family Mode of arrival: ambulatory Limitations: no limitations History of Present Illness HPI Narrative: Patient with history of osteoarthritis left CVA about 16 years ago comes here for ongoing pain in left knee some time got worse in last 2 weeks his knees gives out and had difficulty in walking patient was seen by PCP 2 weeks ago advised physical therapy , patient comes here as afraid that he might have another stroke but he had 16 years ago although there is no other weakness other than the knee which has swelling and the pain. Related Data Previous Rx's Medication Instructions Recorded lisinopril 40 mg tablet 40 mg PO DAILY #90 tabs 10/28/21 clopidogrel 75 mg tablet 75 mg PO DAILY 90 days #90 tabs 01/20/22 carvedilol 25 mg tablet 25 mg PO BID 90 days #180 tabs 03/24/22 omeprazole 20 mg capsule,delayed 20 mg PO BID #180 caps 05/19/22 release amlodipine 10 mg tablet 10 mg PO DAILY 90 days #90 tabs 10/20/22 hydrochlorothiazide 25 mg tablet 25 mg PO DAILY #90 tabs 10/20/22 simvastatin 40 mg tablet 40 mg PO BEDTIME #90 tabs 10/20/22 cholecalciferol (vitamin D3) 1,250 1,250 mcg PO QWEEK 8 weeks #8 caps 12/10/22 mcg (50,000 unit) capsule cholecalciferol (vitamin D3) 50 50 mcg PO DAILY 30 days #30 caps 12/10/22 mcg (2,000 unit) capsule Knee brace #1 ea 12/28/22 cane #1 ea 12/28/22 tramadol 50 mg tablet 50 mg PO Q6H PRN pain #20 tabs 12/28/22 Allergies Allergy/AdvReac Type Severity Reaction Status Date / Time No Known Allergies Allergy Verified 12/28/22 07:19 Review of Systems Review of Systems: Yes all other systems are reviewed and are negative [facility] Past Medical History Medical History (Updated 12/28/22 @ 09:56 by Edward Fernandes MD) Cerebrovascular accident Coronary artery disease Dysphagia Helicobacter pylori (H. pylori) History of stroke Hypertension, essential Knee arthropathy Lipid disorder Non-toxic multinodular goiter Other and unspecified hyperlipidemia Tubular adenoma Vitamin D deficiency Surgical History History of colonoscopy History of esophagogastroduodenoscopy (EGD) Hx of thyroidectomy Hx of ultrasound guided needle biopsy Family History Family History Father Dementia Mother HTN (hypertension) Brother Mental health disorder Substance use disorder Social History Social History Household Members: Spouse Housing: Condominium Alcohol intake: never Patient Tobacco Use Status: Never used Tobacco Smoked in Last 30 Days: No e-Cigarette/Vaping Use: Never Used Second Hand Smoke Exposure: Yes ( smokes) Use of substances other than those prescribed or required for medical reasons: No Advance Directives: Yes Advance Directives on File: Yes Advance Directives Date on File: 12/11/22 service: No Current occupational status: disabled Cognitive needs: No Hearing needs: No Vision needs: No Physical Exam Vital Signs: Vital Signs: Last Vital Signs Pulse 89 12/28/22 10:37 Resp 17 12/28/22 10:37 BP 124/75 12/28/22 10:37 Pulse Ox 100 12/28/22 10:37 O2 Del Method Room Air 12/28/22 10:37 BMI result Body Mass Index 25.7 Appearance: Alert. Oriented X3. No acute distress. Eyes: PERRLA, No Nystagmus ENT: Pharynx normal. Oral Mucosa moist Neck: Normal inspection. Neck supple. CVS: Normal heart rate and rhythm. Pulses normal. Respiratory: No respiratory distress. Equal air entry bilateral, no wheezing/rales/rhonchi Abdomen: Soft and nontender. Bowel sounds are present, no mass palpable, no CVA tenderness Skin: Skin warm and dry. Normal skin color. Normal skin turgor. Extremities: No lower extremity edema. No calf tenderness left knee diffuse swelling with effusion anterior drawer sign Jensen sign negative Neuro: Oriented X 3. No motor deficit. No sensory deficit.No cerebellar signs , cranial nerves II-XII intact Medical Decision Making Medical Decision Making [facility] Narrative: Patient has stable labs x-ray was showing arthritis CT scan negative for PE stroke patient's symptoms from osteoarthritis discharge patient home advised to wear the knee brace Lab Data [facility] Lab Attestation statement: I reviewed the patient's lab results. 12/28/22 08:25 12/28/22 08:25 Labs: Lab Results 12/28/22 12/28/22 Range/Units 08:25 08:25 WBC 7.4 (4.8-10.8) X10*3/uL RBC 3.32 L (4.60-5.80) X10*6/uL Hgb 9.6 L (14.0-18.0) g/dl Hct 29.7 L (42.0-52.0) % MCV 89.5 (80.0-98.0) fL MCH 28.9 (27.0-33.0) pg MCHC 32.3 (31.0-36.0) g/dl RDW 14.1 (11.0-16.0) % Plt Count 442 H (160-400) X10*3/uL MPV 9.1 L (9.4-12.4) fL Immature Gran % (Auto) 0.4 (0.0-0.4) % Neut % (Auto) 71.2 (45-73) % Lymph % (Auto) 14.4 L (20-40) % [place] % (Auto) 12.5 H (2-11) % Eos % (Auto) 1.2 (0-4) % Baso % (Auto) 0.3 (0-2) % Lymph # (Auto) 1.1 L (1.2-4.9) X10*3/uL [place] # (Auto) 0.9 (0.1-1.2) X10*3/uL Eos # (Auto) 0.1 (0.0-0.4) X10*3/uL Baso # (Auto) 0.0 (0.0-0.2) X10*3/uL Abs Immat Gran (auto) 0.03 (0.00-0.03) X10*3/uL Absolute Neuts (auto) 5.3 (2.0-8.3) x10*3/uL Absolute Nucleated RBC 0.000 (0.0-0.012) X10*3/uL Nucleated RBC % (auto) 0.0 (0.0-0.2) /100WBC Sodium 139 (135-145) mmol/L Potassium 4.1 (3.3-5.1) mmol/L Chloride 106 (96-108) mmol/L Carbon Dioxide 24 (22-29) mmol/L Anion Gap 13 (12-20) BUN 37 H (9-16) mg/dL Creatinine 1.44 H (0.5-1.4) mg/dL Estim Creat Clear Calc 60.2 Estimated GFR 49 Random Glucose 103 (60-115) mg/dL Calcium 9.8 (8.4-10.2) mg/dL Magnesium 2.1 (1.6-2.6) mg/dL Total Bilirubin 0.4 (0.0-1.0) mg/dL AST 13 (5-37) U/L ALT 7 (0-40) U/L Alkaline Phosphatase 66 (39-117) U/L Total Creatine Kinase 58 (38-174) U/L Total Protein 7.3 (6.5-8.0) g/dL Albumin 3.3 L (3.5-5.0) g/dL TSH 1.51 (0.32-4.0) uIU/mL NIH Stroke Scale Internal: Initial- Upon Arrival Level of Consciousness: Alert Level of Consciousness Questions: Answers both questions correctly Level of Consciousness Commands: Performs both tasks correctly Best Gaze: Normal Visual: No visual loss Facial Palsy: Normal Motor Arm (Right): No drift Motor Arm (Left): No drift Motor Leg (Right): No drift Motor Leg (Left): No drift Limb Ataxia: Absent Sensory: Normal Best Language: No aphasia Dysarthia: Normal Extinction and Inattention: No abnormality Score: 0 Discharge Plan Discharge Clinical Impression: Osteoarthritis of knee Patient Disposition: Home, Self-Care Instructions: Osteoarthritis (ED) Additional Instructions: Use a knee brace and use cane for ambulation Follow-up with orthopedics/PCP Prescriptions: New (DME) cane Device See Rx Instructions .Route Qty: 1 0RF Rx Instructions: As directed tramadol 50 mg tablet 50 mg PO Q6H PRN (Reason: pain) Qty: 20 0RF (DME) Knee brace Misc See Rx Instructions .Route Qty: 1 0RF Rx Instructions: As directed No Action clopidogrel 75 mg tablet 75 mg PO DAILY 90 Days Qty: 90 3RF carvedilol 25 mg tablet 25 mg PO BID 90 Days Qty: 180 3RF amlodipine 10 mg tablet 10 mg PO DAILY 90 Days Qty: 90 0RF hydrochlorothiazide 25 mg tablet 25 mg PO DAILY Qty: 90 0RF simvastatin 40 mg tablet 40 mg PO BEDTIME Qty: 90 0RF cholecalciferol (vitamin D3) 1,250 mcg (50,000 unit) capsule 1,250 mcg PO QWEEK 56 Days Qty: 8 0RF cholecalciferol (vitamin D3) 50 mcg (2,000 unit) capsule 50 mcg PO DAILY 30 Days Qty: 30 11RF lisinopril 40 mg tablet 40 mg PO DAILY Qty: 90 3RF omeprazole 20 mg capsule,delayed release(DR/EC) 20 mg PO BID Qty: 180 4RF Interventions: ED Discharge Assessment Last Done: 12/28/22 10:40 Discharge Date/Time: 12/28/22 10:43
[2022-12-28 08:30] LABS: MANUAL DIFF FLAG NO
[2022-12-28 08:32] LABS: Basophils Percent Auto 0.3 % (0-2); Eosinophils Absolute Auto 0.1 X10*3/uL (0.0-0.4); Eosinophils Percent Auto 1.2 % (0-4); Hematocrit 29.7 % (42.0-52.0); Hemoglobin 9.6 g/dl (14.0-18.0); Imm Gran Abs Auto 0.03 X10*3/uL (0.00-0.03); Imm Gran Pct Auto 0.4 % (0.0-0.4); Lymphocytes Absolute Auto 1.1 X10*3/uL (1.2-4.9); Lymphocytes Percent Auto 14.4 % (20-40); Mean Corpuscular HGB Conc 32.3 g/dl (31.0-36.0); Mean Corpuscular Hemoglobin 28.9 pg (27.0-33.0); Mean Corpuscular Volume 89.5 fL (80.0-98.0); Mean Platelet Volume 9.1 fL (9.4-12.4); Monocytes Absolute Auto 0.9 X10*3/uL (0.1-1.2); Monocytes Percent Auto 12.5 % (2-11); Neutrophils Absolute Auto 5.3 x10*3/uL (2.0-8.3); Neutrophils Percent Auto 71.2 % (45-73); Platelet Count 442 X10*3/uL (160-400); Red Blood Count 3.32 X10*6/uL (4.60-5.80); Red Cell Distribution Width 14.1 % (11.0-16.0); White Blood Count 7.4 X10*3/uL (4.8-10.8)
[2022-12-28 09:07] LABS: Alanine Aminotransferase 7 U/L (0-40); Albumin Level 3.3 g/dL (3.5-5.0); Alkaline Phosphatase 66 U/L (39-117); Anion Gap 13 (12-20); Aspartate Amino Transferase 13 U/L (5-37); Bilirubin Total 0.4 mg/dL (0.0-1.0); Blood Urea Nitrogen 37 mg/dL (9-16); Calcium 9.8 mg/dL (8.4-10.2); Carbon Dioxide 24 mmol/L (22-29); Chloride 106 mmol/L (96-108); Creatinine Clr Calc Pharmacy 60.2; Estimated Glomerular Filt Rate 49; Glucose Random 103 mg/dL (60-115); Magnesium 2.1 mg/dL (1.6-2.6); Potassium 4.1 mmol/L (3.3-5.1); Sodium 139 mmol/L (135-145); Total Protein 7.3 g/dL (6.5-8.0)
[2022-12-28 09:21] LABS: TSH reflex Free T4 1.51 uIU/mL (0.32-4.0)
[2022-12-28 10:37] VITALS: BP 124/75; PULSE 89; RESP 17; O2SAT 100
== END 2022-12-28 10:43 | disposition home or self-care (01) ==
PROVIDERS: Emergency Provider Internal Medicine; PCP Internal Medicine
DX: M17.12 Unilateral primary osteoarthritis, left knee (principal); R60.0 Localized edema; R51.9 Headache, unspecified; R53.1 Weakness; Z79.899 Other long term (current) drug therapy
CPT/HCPCS: 36415; 70450; 73562; 80053; 82550; 83735; 84443; 85025; 99284

== ENCOUNTER 2023-02-13 10:24 | Outpatient (AMB) | payer MEDICARE, MEDICAID, SELFPAY ==
[2023-02-13 10:23] VITALS: BP 132/62; PULSE 84; O2SAT 98
--- NOTE | 2023-02-13 10:23 | A.OFFPC_ITS ---
Vital Signs 02/13/23 10:23 Height 6 ft 2 in BP 132/62 Blood Pressure Location Lt brachial Position Sitting Pulse 84 Pulse Source Pulse Oximeter Pulse Oximetry (%) 98 Oxygen Delivery Method Room Air Intake Visit Reasons: HDF Allergies No Known Allergies Allergy (Verified 02/13/23 10:24) Medication List - Last Reconciled 02/13/23 by Katelyn Mccoy MD amlodipine 10 mg PO DAILY 90 days cane As directed carvedilol 25 mg PO BID 90 days cholecalciferol (vitamin D3) 1,250 mcg PO QWEEK 8 weeks cholecalciferol (vitamin D3) 50 mcg PO DAILY 30 days clopidogrel 75 mg PO DAILY 90 days cyanocobalamin (vitamin B-12) 1,000 mcg PO DAILY Knee brace As directed leflunomide 20 mg PO DAILY lisinopril 40 mg PO DAILY omeprazole 20 mg PO BID prednisone 5 mg PO DAILY simvastatin 40 mg PO BEDTIME tramadol 50 mg PO Q6H PRN Tobacco use date assessed: 02/13/23 Fall risk assessment: 2 + Falls in past year Last assessed Fall Risk: 02/13/23 Dental Screening Dental Screen Date: 02/13/23 Did you have a dental visit in the last 12 months?: No Did you have a dental problem in the last 6 months where you did not have access to dental care?: No Was dental information given to patient?: No HPI HDF HPI Details Patient is 62-year-old gentleman history of hypertension, thyroid goiter, CVA had labs done which showed low hemoglobin and he was sent to emergency room. Patient was at [facility] Emergency Room on this for that reason. He has been recently diagnosed with rheumatoid arthritis by Rheumatology Rheumatology did basic lab work and patient was found to be anemic with a hemoglobin of 6.9 with creatinine of 2.8. There was a significant drop in hemoglobin compared to January of this year. His hemoglobin was 9.6 in December of this year Patient declined any active bleeding He has been taking NSAIDs for his joint pains Patient was evaluated by PCP December 10 of this year is hemoglobin was 10.3 Patient presented to [facility] Emergency Room on December 28 because of knee pain his hemoglobin was 9.6 Reviewing note from emergency room I do not see any blood transfusion given or any other action taken for dropping hemoglobin. His medications are amlodipine 10 mg carvedilol 25 mg b.i.d., hydrochlorothiazide 25 mg once a day and lisinopril 40 mg for blood pressure control through Cardiology office Patient is also on clopidogrel 75 mg and omeprazole 20 mg Simvastatin 40 mg at bedtime Patient had colonoscopy and of last year and endoscopy as well which showed chronic active inflammation in his stomach Patient is currently also seeing Endocrinology for his thyroid issues Patient got 2 units of blood transfusion 10th of this month at [facility] Emergency Room I am repeating labs again today. His lisinopril and hydrochlorothiazide was stopped because of elevated creatinine. I have placed urgent referral to Hematology. Blood pressure is stable at this time at 132/62 [facility] Medical History Cerebrovascular accident Coronary artery disease Dysphagia Helicobacter pylori (H. pylori) History of stroke Hypertension, essential Knee arthropathy Lipid disorder Non-toxic multinodular goiter Other and unspecified hyperlipidemia Tubular adenoma Vitamin D deficiency Surgical History History of colonoscopy History of esophagogastroduodenoscopy (EGD) Hx of thyroidectomy Hx of ultrasound guided needle biopsy Family History Father Dementia Mother HTN (hypertension) Brother Mental health disorder Substance use disorder Social History Household Members: Spouse Housing: Condominium Alcohol intake: never Patient Tobacco Use Status: Never used Tobacco e-Cigarette/Vaping Use: Never Used Second Hand Smoke Exposure: Yes ( smokes) Advance Directives Date on File: 12/11/22 service: No Current occupational status: disabled Cognitive needs: No Hearing needs: No Vision needs: No Questionnaire Thrive Questionnaire Date Thrive assessed: 12/10/22 AUDIT C Alcohol Use Questionnaire (AUDIT-C) 1. How often do you have a drink containing alcohol?: Never 3. How often do you have six or more drinks on one occasion?: Never Total Score: 0 Score Reviewed/Action Taken: Yes MAGO-7 AMB Questionnaire MAGO-7 Date MAGO - 7 assessed: 12/04/21 Source: Developed by Drs. Chapin Aguilar, Karen Camargo, Tunde Lyles and colleagues, with an educational lu from [employer]. Review of Systems Const Denies chills and Denies fever(s) ENT Denies epistaxis and Denies nasal discharge Card Denies chest pain Resp Denies chest congestion, Denies cough and Denies hemoptysis GI Denies diarrhea and Denies nausea Skin/Breast Denies rash Neuro Reports no additional complaints Psych Reports no additional complaints Endo Reports no additional complaints Physical exam (Primary Care) Vital Signs: Last Vital Signs Pulse 84 02/13/23 10:23 BP 132/62 02/13/23 10:23 Pulse Ox 98 02/13/23 10:23 Oxygen Delivery Method Room Air 02/13/23 10:23 Tobacco/Smoking Status: Tobacco use Status Tobacco use date assessed 02/13/23 02/13/23 10:31 Patient Tobacco Use Status Never used Tobacco 02/13/23 10:31 e-Cigarette/Vaping Use Never Used 02/13/23 10:31 Thrive Assessment: Date of Thrive Assessment Date Thrive assessed 12/10/22 02/13/23 10:31 Const Other: Pale looking gentleman sitting in wheelchair in no acute distress General: cooperative and comfortable Orientation/consciousness: patient oriented x3 HENMT Head: Yes normocephalic Eyes General: appearance normal, both eyes and all related structures Neck Neck: Yes supple Resp Effort & Inspection: normal respiratory effort, no cough and no stridor Cardio Rhythm: regular rhythm Heart sounds: S1 normal heart sound present and S2 normal heart sound present Skin General skin exam: turgor normal Neuro General: patient oriented x3, tone normal and moves all extremities Assessment and Plan Assessment & Plan (1) Hospital discharge follow-up: Code(s): Z09 - Encounter for follow-up examination after completed treatment for conditions other than malignant neoplasm (2) Acute anemia: Code(s): D64.9 - Anemia, unspecified Plan Patient is 62-year-old gentleman history of hypertension, thyroid goiter, CVA had labs done which showed low hemoglobin and he was sent to emergency room. Patient was at [facility] Emergency Room on this month for that reason. He has been recently diagnosed with rheumatoid arthritis by Rheumatology Rheumatology did basic lab work and patient was found to be anemic with a hemoglobin of 6.9 with creatinine of 2.8. There was a significant drop in hemoglobin compared to January of this year. His hemoglobin was 9.6 in December of this year Patient declined any active bleeding He has been taking NSAIDs for his joint pains Patient was evaluated by PCP December 10 of this year is hemoglobin was 10.3 Patient presented to [facility] Emergency Room on December 28 because of knee pain his hemoglobin was 9.6 Reviewing note from emergency room I do not see any blood transfusion given or any other action taken for dropping hemoglobin. His medications are amlodipine 10 mg carvedilol 25 mg b.i.d., hydrochlorothiazide 25 mg once a day and lisinopril 40 mg for blood pressure control through Cardiology office Patient is also on clopidogrel 75 mg and omeprazole 20 mg Simvastatin 40 mg at bedtime Patient had colonoscopy and of last year and endoscopy as well which showed chronic active inflammation in his stomach Patient is currently also seeing Endocrinology for his thyroid issues Patient got 2 units of blood transfusion of this month at [facility] Emergency Room I am repeating labs again today. His lisinopril and hydrochlorothiazide was stopped because of elevated creatinine. I have placed urgent referral to Hematology. Blood pressure is stable at this time at 132/62 Orders: Orders Comprehensive Met. Panel Today D64.9 - Anemia, unspecified, Z09 - Encounter for follow-up examination after completed treatment for conditions other than malignant neoplasm Complete Blood Count Auto Diff Today D64.9 - Anemia, unspecified, Z09 - Encounter for follow-up examination after completed treatment for conditions other than malignant neoplasm Referrals Hematology & Oncology Referral D64.9 - Anemia, unspecified Medications: Discontinued hydrochlorothiazide Discontinued Reason: Doctor's Order 25 mg PO DAILY 90 tabs 0RF Coding Level of Care Code Est Pt Level 5 (25959) Diagnoses Hospital discharge follow-up Z09 Acute anemia D64.9 Time Spent (min) 61 Comment 61 minute spent in care of this patient [id number] and reviewing notes in chart/ref/labs
== END 2023-02-13 12:07 | disposition home or self-care (01) ==
PROVIDERS: PCP Internal Medicine; Visit Provider Internal Medicine
DX: D64.9 Anemia, unspecified (principal); Z09 Encounter for follow-up examination after completed treatment for conditions other than malignant neoplasm
CPT/HCPCS: 99215

== ENCOUNTER 2023-02-13 10:47 | Outpatient (REF) | payer MEDICARE, MEDICAID, SELFPAY ==
[2023-02-13 13:25] LABS: MANUAL DIFF FLAG NO
[2023-02-13 13:37] LABS: Basophils Percent Auto 0.2 % (0-2); Eosinophils Absolute Auto 0.1 X10*3/uL (0.0-0.4); Eosinophils Percent Auto 0.8 % (0-4); Hematocrit 25.4 % (42.0-52.0); Hemoglobin 7.9 g/dl (14.0-18.0); Imm Gran Abs Auto 0.14 X10*3/uL (0.00-0.03); Imm Gran Pct Auto 1.3 % (0.0-0.4); Lymphocytes Absolute Auto 1.2 X10*3/uL (1.2-4.9); Lymphocytes Percent Auto 11.3 % (20-40); Mean Corpuscular HGB Conc 31.1 g/dl (31.0-36.0); Mean Corpuscular Hemoglobin 27.4 pg (27.0-33.0); Mean Corpuscular Volume 88.2 fL (80.0-98.0); Mean Platelet Volume 9.4 fL (9.4-12.4); Monocytes Absolute Auto 0.8 X10*3/uL (0.1-1.2); Monocytes Percent Auto 8.1 % (2-11); Neutrophils Absolute Auto 8.1 x10*3/uL (2.0-8.3); Neutrophils Percent Auto 78.3 % (45-73); Platelet Count 607 X10*3/uL (160-400); Red Blood Count 2.88 X10*6/uL (4.60-5.80); Red Cell Distribution Width 15.7 % (11.0-16.0); White Blood Count 10.4 X10*3/uL (4.8-10.8)
[2023-02-13 14:46] LABS: Alanine Aminotransferase 11 U/L (0-40); Albumin Level 2.8 g/dL (3.5-5.0); Alkaline Phosphatase 70 U/L (39-117); Anion Gap 11 (12-20); Aspartate Amino Transferase 15 U/L (5-37); Bilirubin Total 0.3 mg/dL (0.0-1.0); Blood Urea Nitrogen 30 mg/dL (9-16); Calcium 9.8 mg/dL (8.4-10.2); Carbon Dioxide 25 mmol/L (22-29); Chloride 109 mmol/L (96-108); Estimated Glomerular Filt Rate > 60; Glucose Random 97 mg/dL (60-115); Potassium 3.9 mmol/L (3.3-5.1); Sodium 141 mmol/L (135-145)
== END 2023-02-13 10:48 | disposition home or self-care (01) ==
LOC: HO.HMGCLDS 10:47
PROVIDERS: PCP Internal Medicine; Visit Provider Internal Medicine
DX: Z13.89 Encounter for screening for other disorder (principal)
CPT/HCPCS: 36415; 80053; 85025

== ENCOUNTER 2023-02-13 15:47 | Emergency (ER) | payer MEDICARE, MEDICAID, SELFPAY ==
[2023-02-13 17:17] VITALS: BP 150/81; PULSE 74; RESP 16; TEMP 36.6; O2SAT 100; BMI 25.7
--- NOTE | 2023-02-13 17:23 | ECG_ITS ---
Test Reason : WEAKNESS Blood Pressure : / mmHG Vent. Rate : 083 BPM Atrial Rate : 083 BPM P-R Int : 096 ms QRS Dur : 094 ms QT Int : 382 ms P-R-T Axes : 054 021 060 degrees QTc Int : 448 ms Sinus rhythm with short MI Possible Left atrial enlargement Septal infarct , age undetermined Abnormal ECG When compared with ECG of 15-MAY-2021 16:58, Significant changes have occurred Referred By: Generic ED Physician Electronically Signed By:JONAH HEBERT MD
[2023-02-13 18:02] LABS: MANUAL DIFF FLAG NO
[2023-02-13 18:15] LABS: Anion Gap 11 (12-20); Blood Urea Nitrogen 28 mg/dL (9-16); Calcium 9.9 mg/dL (8.4-10.2); Carbon Dioxide 25 mmol/L (22-29); Chloride 110 mmol/L (96-108); Estimated Glomerular Filt Rate > 60; Glucose Random 89 mg/dL (60-115); Potassium 3.9 mmol/L (3.3-5.1); Sodium 142 mmol/L (135-145)
[2023-02-13 18:22] LABS: Basophils Percent Auto 0.1 % (0-2); Eosinophils Absolute Auto 0.1 X10*3/uL (0.0-0.4); Eosinophils Percent Auto 0.5 % (0-4); Hematocrit 25.6 % (42.0-52.0); Hemoglobin 8.1 g/dl (14.0-18.0); Imm Gran Abs Auto 0.09 X10*3/uL (0.00-0.03); Imm Gran Pct Auto 0.9 % (0.0-0.4); Lymphocytes Absolute Auto 1.5 X10*3/uL (1.2-4.9); Lymphocytes Percent Auto 15.2 % (20-40); Mean Corpuscular HGB Conc 31.6 g/dl (31.0-36.0); Mean Corpuscular Hemoglobin 27.6 pg (27.0-33.0); Mean Corpuscular Volume 87.4 fL (80.0-98.0); Monocytes Absolute Auto 0.9 X10*3/uL (0.1-1.2); Neutrophils Absolute Auto 7.5 x10*3/uL (2.0-8.3); Neutrophils Percent Auto 74.3 % (45-73); Platelet Count 610 X10*3/uL (160-400); Red Blood Count 2.93 X10*6/uL (4.60-5.80); Red Cell Distribution Width 15.6 % (11.0-16.0); White Blood Count 10.1 X10*3/uL (4.8-10.8)
[2023-02-13 22:07] VITALS: BP 160/79; PULSE 72; RESP 18; O2SAT 100
[2023-02-13 22:52] LABS: Appearance Urine Clear; Color Urine Yellow; Glucose Urine UA Negative (Negative); Leukocyte Esterase Urine Negative (Negative); Nitrite Urine Negative (Negative); PH 5.5 (5.0-9.0); Specific Gravity - Urine 1.025 (1.005-1.025); Urine Blood Negative (Negative); Urine Ketones Negative (Negative); Urine Protein Trace mg/dL (Neg-Trace)
[2023-02-13 23:19] VITALS: BP 129/62; PULSE 70; RESP 18; TEMP 36.9; O2SAT 100
--- NOTE | 2023-02-13 23:23 | MHC.EDTECH ---
Vitals updated,cafeteria monitor placed and pt urinated 100cc of urine in urinal. Call ham within reach
[2023-02-13 23:42] LABS: OBS Int Ctl Valid YES; OBS1 NEGATIVE (NEGATIVE)
--- NOTE | 2023-02-13 23:50 | ED.GENADULT ---
HPI - General Adult General Chief complaint: Recheck/Abnormal Lab/Rx Stated complaint: Darius sent over, pt unsure. BP? Time Seen by Provider: 02/13/23 22:38 Source: patient, family (Patient's ), RN notes reviewed and old records reviewed Mode of arrival: ambulatory Limitations: no limitations History of Present Illness HPI narrative: 62-year-old male past medical history significant for hypertension, previous CVA, anemia, thyroid goiter presents for evaluation of ?my doctor sent me. ? Patient was referred to emergency department by Dr. Mccoy has had outpatient labs that showed a hemoglobin of 7.9. He denies any active bleeding, black or bloody stool He is not anticoagulated but per his takes Plavix and aspirin The patient was at [facility] last week and apparently required 2 blood transfusions before being discharged home He was referred to see Hematology but has not yet seen them Per Dr. Mccoy note, the patient had an endoscopy colonoscopy at the end of last year which showed chronic inflammation the stomach The patient offers no complaints His states that he has chronic and baseline weakness He denies any shortness of breath Related Data Home Medications Medication Instructions Recorded Confirmed cyanocobalamin (vitamin B-12) 1,000 mcg PO DAILY 02/13/23 02/13/23 1,000 mcg tablet leflunomide 20 mg tablet 20 mg PO DAILY 02/13/23 02/13/23 prednisone 5 mg tablet 5 mg PO DAILY 02/13/23 02/13/23 Previous Rx's Medication Instructions Recorded carvedilol 25 mg tablet 25 mg PO BID 90 days #180 tabs 03/24/22 omeprazole 20 mg capsule,delayed 20 mg PO BID #180 caps 05/19/22 release cholecalciferol (vitamin D3) 1,250 1,250 mcg PO QWEEK 8 weeks #8 caps 12/10/22 mcg (50,000 unit) capsule cholecalciferol (vitamin D3) 50 50 mcg PO DAILY 30 days #30 caps 12/10/22 mcg (2,000 unit) capsule Knee brace #1 ea 12/28/22 cane #1 ea 12/28/22 tramadol 50 mg tablet 50 mg PO Q6H PRN pain #20 tabs 12/28/22 amlodipine 10 mg tablet 10 mg PO DAILY 90 days #90 tabs 02/02/23 clopidogrel 75 mg tablet 75 mg PO DAILY 90 days #90 tabs 02/02/23 lisinopril 40 mg tablet 40 mg PO DAILY #90 tabs 02/02/23 simvastatin 40 mg tablet 40 mg PO BEDTIME #90 tabs 02/02/23 Allergies Allergy/AdvReac Type Severity Reaction Status Date / Time No Known Allergies Allergy Verified 02/13/23 10:24 Review of Systems Constitutional: Constitutional: Denies fatigue, Denies headache(s) and Reports weakness ENT: Denies headache(s) Cardiovascular: Cardiovascular: Denies chest pain and Denies dyspnea Respiratory: Respiratory: Denies cough and Denies dyspnea Gastrointestinal: Gastrointestinal: Denies abdominal pain, Denies melena, Denies hematochezia, Denies constipation and Denies vomiting Genitourinary: Genitourinary: Denies difficulty urinating and Denies dysuria Neurologic: Denies headache(s) and Reports weakness Endocrine: Endocrine: Denies fatigue PMFSH Past Medical History Medical History Cerebrovascular accident Coronary artery disease Dysphagia Helicobacter pylori (H. pylori) History of stroke Hypertension, essential Knee arthropathy Lipid disorder Non-toxic multinodular goiter Other and unspecified hyperlipidemia Tubular adenoma Vitamin D deficiency Surgical History History of colonoscopy History of esophagogastroduodenoscopy (EGD) Hx of thyroidectomy Hx of ultrasound guided needle biopsy Family History Family History Father Dementia Mother HTN (hypertension) Brother Mental health disorder Substance use disorder Social History Social History Household Members: Spouse Housing: Condominium Alcohol intake: never Patient Tobacco Use Status: Never used Tobacco Smoked in Last 30 Days: No e-Cigarette/Vaping Use: Never Used Second Hand Smoke Exposure: Yes ( smokes) Use of substances other than those prescribed or required for medical reasons: No Advance Directives: Yes Advance Directives on File: Yes Advance Directives Date on File: 12/11/22 service: No Current occupational status: disabled Cognitive needs: No Hearing needs: No Vision needs: No Physical Exam ED Vital Signs: Vital Signs - 24 hr 02/13/23 17:17 02/13/23 22:07 02/13/23 23:19 Temperature 98 F 98.4 F Pulse Rate 74 72 70 Respiratory Rate 16 18 18 Blood Pressure 150/81 H 160/79 H 129/62 Pulse Oximetry 100 100 100 Oxygen Delivery Method Room Air Room Air BMI result Body Mass Index 25.7 Const General: healthy appearing, comfortable, no acute distress, alert and awake Nutritional Appearance: well nourished Orientation/consciousness: patient oriented x3 HENMT Head: Yes normocephalic and Yes atraumatic Eyes Eyelids: Yes eyelids normal Conjunctivae: conjunctivae normal Sclerae: sclerae normal Corneas: corneas normal Pupils: Equal, round and reactive pupils present EOM: EOMs intact bilaterally Neck Neck: Yes full ROM Resp Effort & Inspection: normal respiratory effort, able to speak in complete sentences and not labored GI Inspection: No distended Palpation (GI): Soft to palpation, not firm, nontender, no guarding and not rigid Rectal Exam - Male: Yes visual inspection normal, Yes normal sphincter tone, No Abnormal stool present, Yes heme negative stool, No External hemorrhoid(s) present and No Internal hemorrhoid(s) present Skin General skin exam: no rashes or lesions noted and elasticity normal Neuro General: patient oriented x3 Cranial nerves: Yes Equal, round and reactive pupils present and Yes Bilaterally intact EOM present Cognition (Neuro): normal cognition Extrem Other: Moving all extremities well without any obvious deformities Medical Decision Making Medical Decision Making MDM Narrative: 62-year-old male presents for evaluation of abnormal labs. He was referred due to low H& H. The patient is asymptomatic, his vital signs are stable. His hemoglobin is 8.1 with a hematocrit of 25.6. Given that he is not actively bleeding and these numbers are represent a very slight increased when compared to this morning. The patient is stable for discharge at this time to follow-up with outpatient providers. I discussed this with the patient and his . I discussed if the patient was safe at home given his chronic weakness and both he and the feel the patient is comfortable being discharged home as opposed to requiring social media marketing analyst and case management evaluation. Differential Diagnosis Differential Diagnoses: The differential diagnosis associated with the presentation includes Chronic anemia Anemia of chronic disease GI bleed Iron deficiency anemia Admission/Observation Consideration of admission/observation: Escalation of care including admission/observation considered (Acute on chronic anemia) Lab Data MDM Lab Attestation statement: I reviewed the patient's lab results. No leukocytosis, anemia of a hemoglobin of 8.1 and hematocrit 25.6 slightly improved from this morning. No significant electrolyte abnormalities. BUN of 28 with a creatinine of 0.85 02/13/23 17:55 02/13/23 17:55 Labs: Lab Results 02/13/23 02/13/23 02/13/23 Range/Units 17:55 17:55 17:55 WBC 10.1 (4.8-10.8) X10*3/uL RBC 2.93 L (4.60-5.80) X10*6/uL Hgb 8.1 L (14.0-18.0) g/dl Hct 25.6 L (42.0-52.0) % MCV 87.4 (80.0-98.0) fL MCH 27.6 (27.0-33.0) pg MCHC 31.6 (31.0-36.0) g/dl RDW 15.6 (11.0-16.0) % Plt Count 610 H (160-400) X10*3/uL MPV 9.0 L (9.4-12.4) fL Immature Gran % (Auto) 0.9 H (0.0-0.4) % Neut % (Auto) 74.3 H (45-73) % Lymph % (Auto) 15.2 L (20-40) % [place] % (Auto) 9.0 (2-11) % Eos % (Auto) 0.5 (0-4) % Baso % (Auto) 0.1 (0-2) % Lymph # (Auto) 1.5 (1.2-4.9) X10*3/uL [place] # (Auto) 0.9 (0.1-1.2) X10*3/uL Eos # (Auto) 0.1 (0.0-0.4) X10*3/uL Baso # (Auto) 0.0 (0.0-0.2) X10*3/uL Abs Immat Gran (auto) 0.09 H (0.00-0.03) X10*3/uL Absolute Neuts (auto) 7.5 (2.0-8.3) x10*3/uL Absolute Nucleated RBC 0.000 (0.0-0.012) X10*3/uL Nucleated RBC % (auto) 0.0 (0.0-0.2) /100WBC Sodium 142 (135-145) mmol/L Potassium 3.9 (3.3-5.1) mmol/L Chloride 110 H (96-108) mmol/L Carbon Dioxide 25 (22-29) mmol/L Anion Gap 11 L (12-20) BUN 28 H (9-16) mg/dL Creatinine 0.85 (0.5-1.4) mg/dL Estim Creat Clear Calc 102.0 Estimated GFR > 60 Random Glucose 89 (60-115) mg/dL Calcium 9.9 (8.4-10.2) mg/dL Urine Color Urine Appearance Urine pH (5.0-9.0) Ur Specific [place] (1.005-1.025) Urine Protein (Neg-Trace) mg/dL Urine Glucose (UA) (Negative) mg/dL Urine Ketones (Negative) mg/dL Urine Blood (Negative) Urine Nitrite (Negative) Ur Leukocyte Esterase (Negative) Stool Occult Blood (NEGATIVE) Blood Type O Positive Antibody Screen NEGATIVE 02/13/23 02/13/23 Range/Units 22:34 23:19 WBC (4.8-10.8) X10*3/uL RBC (4.60-5.80) X10*6/uL Hgb (14.0-18.0) g/dl Hct (42.0-52.0) % MCV (80.0-98.0) fL MCH (27.0-33.0) pg MCHC (31.0-36.0) g/dl RDW (11.0-16.0) % Plt Count (160-400) X10*3/uL MPV (9.4-12.4) fL Immature Gran % (Auto) (0.0-0.4) % Neut % (Auto) (45-73) % Lymph % (Auto) (20-40) % [place] % (Auto) (2-11) % Eos % (Auto) (0-4) % Baso % (Auto) (0-2) % Lymph # (Auto) (1.2-4.9) X10*3/uL [place] # (Auto) (0.1-1.2) X10*3/uL Eos # (Auto) (0.0-0.4) X10*3/uL Baso # (Auto) (0.0-0.2) X10*3/uL Abs Immat Gran (auto) (0.00-0.03) X10*3/uL Absolute Neuts (auto) (2.0-8.3) x10*3/uL Absolute Nucleated RBC (0.0-0.012) X10*3/uL Nucleated RBC % (auto) (0.0-0.2) /100WBC Sodium (135-145) mmol/L Potassium (3.3-5.1) mmol/L Chloride (96-108) mmol/L Carbon Dioxide (22-29) mmol/L Anion Gap (12-20) BUN (9-16) mg/dL Creatinine (0.5-1.4) mg/dL Estim Creat Clear Calc Estimated GFR Random Glucose (60-115) mg/dL Calcium (8.4-10.2) mg/dL Urine Color Yellow Urine Appearance Clear Urine pH 5.5 (5.0-9.0) Ur Specific [place] 1.025 (1.005-1.025) Urine Protein Trace (Neg-Trace) mg/dL Urine Glucose (UA) Negative (Negative) mg/dL Urine Ketones Negative (Negative) mg/dL Urine Blood Negative (Negative) Urine Nitrite Negative (Negative) Ur Leukocyte Esterase Negative (Negative) Stool Occult Blood NEGATIVE (NEGATIVE) Blood Type Antibody Screen Independent Interpretation I performed an independent interpretation of an: EKG (Sinus rhythm with a rate of 83 beats per minute. No ST segment elevations or depressions.) Discharge Plan Discharge Clinical Impression: Anemia Patient Disposition: Home, Self-Care Instructions: Anemia (ED) Additional Instructions: Your blood counts were little bit low today with a hemoglobin of 8.1. However, given that your were asymptomatic and not actively bleeding, this does not require transfusion You may follow-up with your outpatient providers Return for new or any worsening symptoms that you may experience, especially if he notice any significant bleeding, black or bloody stool Take all of your medications as prescribed Prescriptions: No Action carvedilol 25 mg tablet 25 mg PO BID 90 Days Qty: 180 3RF cholecalciferol (vitamin D3) 1,250 mcg (50,000 unit) capsule 1,250 mcg PO QWEEK 56 Days Qty: 8 0RF cholecalciferol (vitamin D3) 50 mcg (2,000 unit) capsule 50 mcg PO DAILY 30 Days Qty: 30 11RF lisinopril 40 mg tablet 40 mg PO DAILY Qty: 90 3RF simvastatin 40 mg tablet 40 mg PO BEDTIME Qty: 90 0RF amlodipine 10 mg tablet 10 mg PO DAILY 90 Days Qty: 90 0RF clopidogrel 75 mg tablet 75 mg PO DAILY 90 Days Qty: 90 1RF (DME) cane Device See Rx Instructions .Route Qty: 1 0RF Rx Instructions: As directed tramadol 50 mg tablet 50 mg PO Q6H PRN (Reason: pain) Qty: 20 0RF (DME) Knee brace Misc See Rx Instructions .Route Qty: 1 0RF Rx Instructions: As directed prednisone 5 mg tablet 5 mg PO DAILY leflunomide 20 mg tablet 20 mg PO DAILY cyanocobalamin (vitamin B-12) 1,000 mcg tablet 1,000 mcg PO DAILY omeprazole 20 mg capsule,delayed release(DR/EC) 20 mg PO BID Qty: 180 4RF Interventions: ED Discharge Assessment Last Done: 02/14/23 00:03 Discharge Date/Time: 02/14/23 00:04
== END 2023-02-14 00:04 | disposition home or self-care (01) ==
PROVIDERS: Physician Assistant; Emergency Provider Emergency Medicine; PCP Internal Medicine
DX: D64.9 Anemia, unspecified (principal); R94.31 Abnormal electrocardiogram [ECG] [EKG]; Z79.899 Other long term (current) drug therapy
CPT/HCPCS: 36415; 80048; 80053; 81003; 82272; 85025; 86850; 86900; 86901; 93005; 99283; 99284

== ENCOUNTER → 2023-02-13 17:23 | Outpatient (BNV) | payer MEDICARE, MEDICAID, SELFPAY | PROVIDERS: Emergency Provider Emergency Medicine; PCP Internal Medicine; Visit Provider Internal Medicine Cardiovascular Disease | DX: R53.1 Weakness (principal) | CPT/HCPCS: 93010 ==

== ENCOUNTER 2023-02-17 13:56 | Outpatient (REF) | payer MEDICARE, MEDICAID, SELFPAY ==
[2023-02-17 16:07] LABS: MANUAL DIFF FLAG NO
[2023-02-17 16:38] LABS: Basophils Percent Auto 0.2 % (0-2); Eosinophils Absolute Auto 0.1 X10*3/uL (0.0-0.4); Eosinophils Percent Auto 0.9 % (0-4); Hematocrit 26.4 % (42.0-52.0); Hemoglobin 8.1 g/dl (14.0-18.0); Imm Gran Abs Auto 0.07 X10*3/uL (0.00-0.03); Imm Gran Pct Auto 0.8 % (0.0-0.4); Lymphocytes Absolute Auto 0.9 X10*3/uL (1.2-4.9); Lymphocytes Percent Auto 9.6 % (20-40); Mean Corpuscular HGB Conc 30.7 g/dl (31.0-36.0); Mean Corpuscular Hemoglobin 27.3 pg (27.0-33.0); Mean Corpuscular Volume 88.9 fL (80.0-98.0); Mean Platelet Volume 9.5 fL (9.4-12.4); Monocytes Absolute Auto 0.8 X10*3/uL (0.1-1.2); Monocytes Percent Auto 8.3 % (2-11); Neutrophils Absolute Auto 7.4 x10*3/uL (2.0-8.3); Neutrophils Percent Auto 80.2 % (45-73); Platelet Count 500 X10*3/uL (160-400); Red Blood Count 2.97 X10*6/uL (4.60-5.80); Red Cell Distribution Width 16.2 % (11.0-16.0); White Blood Count 9.2 X10*3/uL (4.8-10.8)
[2023-02-17 17:04] LABS: Alanine Aminotransferase 6 U/L (0-40); Albumin Level 2.7 g/dL (3.5-5.0); Alkaline Phosphatase 69 U/L (39-117); Anion Gap 11 (12-20); Aspartate Amino Transferase 16 U/L (5-37); Bilirubin Total 0.2 mg/dL (0.0-1.0); Blood Urea Nitrogen 15 mg/dL (9-16); Calcium 9.3 mg/dL (8.4-10.2); Carbon Dioxide 27 mmol/L (22-29); Chloride 107 mmol/L (96-108); Estimated Glomerular Filt Rate > 60; Glucose Random 125 mg/dL (60-115); Potassium 3.8 mmol/L (3.3-5.1); Sodium 141 mmol/L (135-145); Total Protein 6.6 g/dL (6.5-8.0); Vitamin B12 538 pg/mL (200-900)
[2023-02-17 17:18] LABS: Ferritin 916 ng/mL (20-250)
== END 2023-02-17 13:57 | disposition home or self-care (01) ==
LOC: HO.HMGCLDS 13:56
PROVIDERS: PCP Internal Medicine; Visit Provider Internal Medicine
DX: D64.9 Anemia, unspecified (principal)
CPT/HCPCS: 36415; 80053; 82607; 82728; 85025

== ENCOUNTER 2023-03-17 12:43 | Outpatient (AMB) | payer MEDICARE, MEDICAID, SELFPAY ==
--- NOTE | 2023-03-17 12:45 | MHC.PC.OV ---
Vital Signs 03/17/23 12:50 Height 6 ft 2 in BMI Reason not done Patient refused/unable BP 114/74 Blood Pressure Location Lt brachial Position Sitting Pulse 96 Pulse Source Pulse Oximeter Pulse Oximetry (%) 100 Oxygen Delivery Method Room Air Intake Visit Reasons: 3 month f/u Intake Note: Pt is here today for 3 months follow up visit. Allergies No Known Allergies Allergy (Verified 03/17/23 12:52) Medication List - Last Reconciled 03/17/23 by Katelyn Mccoy MD amlodipine 10 mg PO DAILY 90 days cane As directed carvedilol 25 mg PO BID 90 days cholecalciferol (vitamin D3) 1,250 mcg PO QWEEK 8 weeks cholecalciferol (vitamin D3) 50 mcg PO DAILY 30 days clopidogrel 75 mg PO DAILY 90 days cyanocobalamin (vitamin B-12) 1,000 mcg PO DAILY [Hinged knee brace As directed] Knee brace As directed leflunomide 20 mg PO DAILY lisinopril 40 mg PO DAILY omeprazole 20 mg PO BID prednisone 5 mg PO DAILY [Raised toilet seat with arms As directed] [Shower bench As directed] simvastatin 40 mg PO BEDTIME tramadol 50 mg PO Q6H PRN Tobacco use date assessed: 02/13/23 HPI 3 month f/u HPI Details Patient is a 63-year-old gentleman who was in emergency room last month on when his hemoglobin came back at 7.9 Patient is having recurrent loss of blood but we do not know from where Prior to that he was in a hospital and was given 2 units of RBC because his hemoglobin dropped in the 6 range In a hospital hemoglobin was repeated and it was 8.1 so he was discharged without any other intervention Since then he has not had labs done I have ordered labs to be done today I have given them number of Hematology so they can book the appointment referral is already in the chart since last month He also have appointment come up next month for thyroid follow-up And cardiology appointment is in May Patient is seeing Dr. Callaway as his marketing compliance manager due to recurrent joint swelling is taking care of him, who is telling me that she is going to get a star vertigo service establishment attendant service for the patient now Patient is going through physical therapy but still feeling very weak and is sitting in a wheelchair He already have a weakness in his right leg because of history of stroke And now because of when he may and rheumatological issues he is having difficulty taking care of himself [facility] Medical History Cerebrovascular accident Coronary artery disease Dysphagia Helicobacter pylori (H. pylori) History of stroke Hypertension, essential Knee arthropathy Lipid disorder Non-toxic multinodular goiter Other and unspecified hyperlipidemia Tubular adenoma Vitamin D deficiency Surgical History History of colonoscopy History of esophagogastroduodenoscopy (EGD) Hx of thyroidectomy Hx of ultrasound guided needle biopsy Family History Father Dementia Mother HTN (hypertension) Brother Mental health disorder Substance use disorder Social History Household Members: Spouse Housing: Condominium Alcohol intake: never Patient Tobacco Use Status: Never used Tobacco e-Cigarette/Vaping Use: Never Used Second Hand Smoke Exposure: Yes ( smokes) Advance Directives Date on File: 12/11/22 service: No Current occupational status: disabled Cognitive needs: No Hearing needs: No Vision needs: No Questionnaire Thrive Questionnaire Date Thrive assessed: 12/10/22 MAGO-7 AMB Questionnaire MAGO-7 Date MAGO - 7 assessed: 12/04/21 Source: Developed by Drs. Cahpin Aguilar, Karen Camargo, Tunde Lyles and colleagues, with an educational lu from [employer]. Review of Systems Const Denies chills and Denies fever(s) ENT Denies epistaxis and Denies nasal discharge Card Denies chest pain Resp Denies chest congestion, Denies cough and Denies hemoptysis GI Denies diarrhea and Denies nausea Skin/Breast Denies rash Neuro Reports no additional complaints Psych Reports no additional complaints Endo Reports no additional complaints Physical exam (Primary Care) Vital Signs: Last Vital Signs Pulse 96 03/17/23 12:50 BP 114/74 03/17/23 12:50 Pulse Ox 100 03/17/23 12:50 Oxygen Delivery Method Room Air 03/17/23 12:50 Tobacco/Smoking Status: Tobacco use Status Tobacco use date assessed 02/13/23 03/17/23 12:46 Patient Tobacco Use Status Never used Tobacco 03/17/23 12:46 e-Cigarette/Vaping Use Never Used 03/17/23 12:46 Thrive Assessment: Date of Thrive Assessment Date Thrive assessed 12/10/22 03/17/23 12:46 Const Other: Pale looking gentleman sitting in wheelchair in no acute distress General: cooperative and comfortable Orientation/consciousness: patient oriented x3 HENMT Head: Yes normocephalic Eyes General: appearance normal, both eyes and all related structures Neck Neck: Yes supple Resp Effort & Inspection: normal respiratory effort, no cough and no stridor Cardio Rhythm: regular rhythm Heart sounds: S1 normal heart sound present and S2 normal heart sound present Skin General skin exam: turgor normal Neuro General: patient oriented x3, tone normal and moves all extremities Assessment and Plan Assessment & Plan (1) Acute anemia: Code(s): D64.9 - Anemia, unspecified (2) Multiple thyroid nodules: Code(s): E04.2 - Nontoxic multinodular goiter Plan Patient is a 63-year-old gentleman who was in emergency room last month on when his hemoglobin came back at 7.9 Patient is having recurrent loss of blood but we do not know from where Prior to that he was in a hospital and was given 2 units of RBC because his hemoglobin dropped in the 6 range In a hospital hemoglobin was repeated and it was 8.1 so he was discharged without any other intervention Since then he has not had labs done I have ordered labs to be done today I have given them number of Hematology so they can book the appointment referral is already in the chart since last month He also have appointment come up next month for thyroid follow-up And cardiology appointment is in May Patient is seeing Dr. Callaway as his marketing compliance manager due to recurrent joint swelling is taking care of him, who is telling me that she is going to get a star vertigo service establishment attendant service for the patient now Patient is going through physical therapy but still feeling very weak and is sitting in a wheelchair He already have a weakness in his right leg because of history of stroke And now because of when he may and rheumatological issues he is having difficulty taking care of himself Orders: Orders Ferritin Today D64.9 - Anemia, unspecified IRON PROFILE Today D64.9 - Anemia, unspecified Hematocrit Today D64.9 - Anemia, unspecified Hemoglobin Today D64.9 - Anemia, unspecified TSH reflex Free T4 Today E04.2 - Nontoxic multinodular goiter Coding Level of Care Code Est Pt Level 4 (33573) Diagnoses Acute anemia D64.9 Multiple thyroid nodules E04.2
[2023-03-17 12:50] VITALS: BP 114/74; PULSE 96; O2SAT 100
== END 2023-03-17 15:08 | disposition home or self-care (01) ==
PROVIDERS: PCP Internal Medicine; Visit Provider Internal Medicine
DX: D64.9 Anemia, unspecified (principal); E04.2 Nontoxic multinodular goiter
CPT/HCPCS: 99214

== ENCOUNTER 2023-03-17 13:14 | Outpatient (REF) | payer MEDICARE, MEDICAID, SELFPAY ==
[2023-03-17 16:21] LABS: Hematocrit 27.4 % (42.0-52.0); Hemoglobin 8.5 g/dl (14.0-18.0)
[2023-03-17 16:34] LABS: Iron 19 mcg/dL (45-160); Percent Iron Saturation 14 % (15-50); Total Iron Binding Capacity 137 mcg/dL (228-428); Unsaturated Iron Binding 118 ug/dL
[2023-03-17 16:52] LABS: Ferritin 1548 ng/mL (20-250); TSH reflex Free T4 1.19 uIU/mL (0.32-4.0)
== END 2023-03-17 13:15 | disposition home or self-care (01) ==
LOC: HO.HMGCLDS 13:14
PROVIDERS: PCP Internal Medicine; Visit Provider Internal Medicine
DX: E04.2 Nontoxic multinodular goiter (principal); D64.9 Anemia, unspecified
CPT/HCPCS: 36415; 82728; 83540; 84443; 85014; 85018

== ENCOUNTER → 2023-04-10 10:59 | Outpatient (BNV) | payer MEDICARE, MEDICAID, SELFPAY | PROVIDERS: PCP Internal Medicine; Referring Provider Internal Medicine; Visit Provider Internal Medicine Medical Oncology | DX: D64.9 Anemia, unspecified (principal) | CPT/HCPCS: 99204; 99212; 99214 ==

== ENCOUNTER 2023-04-23 14:00 | Outpatient (RCR) | payer MEDICARE, MEDICAID, SELFPAY ==
[2023-02-25 10:04] VITALS: BP 116/68; PULSE 88
--- NOTE | 2023-02-25 11:54 | MHC.PT.EP ---
[facility] [place] Office [place] Office [place] Office [address] Shahnaz Murray [address] [phone] F: [phone] F: [phone] F: [phone] F: [phone] Physical Therapy Plan of Care Date of Evaluation: Date of Surgery: Diagnosis: other specified disorders of muscles other sx and signs involving musculoskeletal system muscle stiffness, leg weakness, B knee arthropathy Assessment: 62 y/o male referred to PT with other specified disorders of muscles, other sx and signs involving musculoskeletal system, and muscle stiffness, leg weakness, B knee arthropathy. Of note he had a CVA affecting R side 16 years ago. He underwent a L knee surgery in December to ?clean out infection (he is unsure of surgery and surgeon, will bring in information next visit). Since the surgery, he reports difficulty with standing, walking, and stairs in step through pattern which he was doing prior to surgery. He is now using a RW or cane in the house. Examination shows impaired gait pattern, mod A for sit to stands, decreased B knee AROM, decreased B LE strength. Recommend PT 2x/week for 6 weeks to address impairments, implement HEP, and optimize functional mobility. Frequency and Duration: The patient will be seen 2x/week for 6 weeks Short Term Goals: 3 weeks Compliant with HEP Pt will be min A for sit to stands to LRAD Pt will improve L LE strength by one MMT grade Test Automation Architect Goals: 6 weeks I with HEP and self management of sx Pt will be able to ambulate > 200' with LRAD independently and pain < 3/10 Pt will be able to perform sit to stand 5x without assistance and pain < 3/10 f Treatment Plan: Modalities to reduce pain, spasms and effusion. Manual therapy to restore motion and function. Therapeutic exercise to improve strength and flexibility. Neuromuscular re-education for posture and balance. Therapeutic activities to return to functional activities of daily living. Electronically signed by: Yady Helton PT Please sign and return to therapist. Thank you for your referral.
--- NOTE | 2023-04-23 15:27 | MHC.PT.RE ---
[facility] [place] Office [place] Office [place] Office [address] Shahnaz Murray [address] [phone] F: [phone] F: [phone] F: [phone] F: [phone] Physical Therapy Re-evaluation Diagnosis: other specified disorders of muscles other sx and signs involving musculoskeletal system muscle stiffness, leg weakness, B knee arthropathy Date of Surgery: Date of Evaluation: 02/25/23 Treatments to Date: 5 Cancellations to Date: 0 No Shows to Date: Subjective: Reports he saw Dr. No 2 weeks ago and they will be ordering more tests. (From Dr. Agustin note: DIFFERENTIAL DIAGNOSIS: 1. IRON DEFICIENCY ANEMIA: Is a possibility. He could have occult GI blood loss. He underwent an EGD and colonoscopy last year in May that revealed chronic inactive gastritis, H pylori positive and tubular adenomas. He is due for repeat colonoscopy next month. 2. ANEMIA OF CHRONIC DISEASE: Is likely. His iron studies are suggestive. He has CKD. 3. B12 FOLATE DEFICIENCY: Can coexist. 4. HEMOLYTIC ANEMIA: Is in the differential. 5. UNDERLYING MYELO INFILTRATIVE DISORDER: MDS versus multiple myeloma versus lymphoma are possibilities especially at his age. He feels that he is even weaker than he was a month ago. He continues to have difficulty standing up from a low sitting position. He is no longer able to ascend/descend stairs and has been sleeping on the first floor for the past 3-4 months. His family has been having him exercise (he stands up and walks with RW around kitchen table x2 laps) and he does this 3-4x/day Pain Score: 3-4 Pain Location: L knee pain Objective Measures: Resisted tests: Hip flexion R 3-/5, L 3/5 pain. Quads R 2-/5, L 3-/5 (available ROM 3+/5), HS R 4/5 (?tone), L 4-/5, ankle df B 4-/5, ankle pf B 3+/5 seated Hip Add B 4-/5 Knee AROM: Sit to stand: MAX A x 1 and increased time needed Bed mobility: I but increased time needed and cues for leg posiitoning Assessment: Pt had to cancel a month of PT d/t not having insurance. He is not back for re-evaluation and reports feeling weaker. He is undergoing w/u with Dr. No. Currently he presents with significant B LE weakness (R side has tone), max A for sit to stands, and CGA for gait with RW. He would benefit from PT 2x/week for 6 weeks to address impairments and optimize functional mobility. Of note, he is now slightly weaker and requires more assistance from initial evaluation and educated pt on importance of HEP 2x/day as well as small walks with family several times a day to optimize function. Pt is motivated. Short Term Goals: 3 weeks Compliant with HEP Pt will be min A for sit to stands to RW Pt will improve L LE strength by one MMT grade Care Home Goals: 6 weeks I with HEP and self management of sx Pt will be able to ambulate > 200' with LRAD independently and pain < 3/10 Pt will be able to perform sit to stand 5x without assistance and pain < 3/10 Frequency and Duration: The patient will be seen 2x/week for 6 weeks Treatment Plan: Therapeutic Exercise Dynamic Therapeutic Activities Neuromuscular Re-ed Gait Home Exercise Program Patient Education Reviewed/ Agreed with Student Documentation: Therapist: Electronically signed by: Yady Helton PT Please sign and return to therapist. Thank you for your referral.
--- NOTE | 2023-05-14 08:15 | MHC.PT.DC ---
[facility] [place] Office [place] Office [place] Office [address] Shahnaz Murray [address] [phone] F: [phone] F: [phone] F: [phone] F: [phone] Physical Therapy Discharge Report Diagnosis: other specified disorders of muscles other sx and signs involving musculoskeletal system muscle stiffness, leg weakness, B knee arthropathy Date of Surgery: Date of Evaluation: 02/25/23 Date of Discharge: 05/14/23 Treatments to Date: 5 Cancellations to Date: 0 No Shows to Date: 4 Discharge Status: Recommend MD Follow-up Visit Non-compliance Discharge Summary: D/c secondary to 3 consecutive no show visits following re-evaluation. From last attended visit: Pt had to cancel a month of PT d/t not having insurance. He is now back for re-evaluation and reports feeling weaker. He is undergoing w/u with Dr. No d/t several health issues. Currently he presents with significant B LE weakness (R side has tone), max A for sit to stands, and CGA for gait with RW. He would benefit from PT 2x/week for 6 weeks to address impairments and optimize functional mobility. Of note, he is now slightly weaker and requires more assistance from initial evaluation and educated pt on importance of HEP 2x/day as well as small walks with family several times a day to optimize function. Pt is motivated. Electronically signed by: Yady Helton PT Please sign and return to therapist. Thank you for your referral.
== END 2023-05-14 08:16 | disposition home or self-care (01) ==
LOC: HO.PT 14:00
PROVIDERS: PCP Internal Medicine; Visit Provider Internal Medicine
DX: M62.89 Other specified disorders of muscle (principal); R29.898 Other symptoms and signs involving the musculoskeletal system; M17.10 Unilateral primary osteoarthritis, unspecified knee
CPT/HCPCS: 97110; 97112; 97116; 97163

== ENCOUNTER 2023-05-12 12:28 | Outpatient (AMB) | payer MEDICARE, MEDICAID, SELFPAY ==
[2023-05-12 12:31] VITALS: BP 128/80; PULSE 112; O2SAT 98; BMI 19.3
--- NOTE | 2023-05-12 12:31 | MHC.PC.OV ---
Vital Signs 05/12/23 12:31 Height 6 ft 2 in Weight 150 lb BMI 19.3 BP 128/80 Blood Pressure Location Lt brachial Position Sitting Pulse 112 H Pulse Source Pulse Oximeter Pulse Oximetry (%) 98 Oxygen Delivery Method Room Air Intake Visit Reasons: Follow Up~ Intake Note: Pt is here today for a follow up visit. Allergies No Known Allergies Allergy (Verified 05/12/23 12:36) Medication List - Last Reconciled 05/12/23 by Katelyn Mccoy MD amlodipine 10 mg PO DAILY 90 days ascorbic acid (vitamin C) (Vitamin C) 500 mg PO BID cane As directed carvedilol 25 mg PO BID 90 days cholecalciferol (vitamin D3) 1,250 mcg PO QWEEK 8 weeks cholecalciferol (vitamin D3) 50 mcg PO DAILY 30 days clopidogrel 75 mg PO DAILY 90 days cyanocobalamin (vitamin B-12) 1,000 mcg PO DAILY ferrous sulfate 325 mg PO BID food supplemt, lactose-reduced (Ensure Original oral liquid) 4 ea PO DAILY [Hinged knee brace As directed] Knee brace As directed leflunomide 20 mg PO DAILY omeprazole 20 mg PO BID prednisone 5 mg PO DAILY [Raised toilet seat with arms As directed] sennosides (Senokot) 8.6 mg PO BID [Shower bench As directed] simvastatin 40 mg PO BEDTIME tramadol 50 mg PO Q6H PRN Transfer Bench As directed [wheelchair As directed] Tobacco use date assessed: 05/12/23 Last assessed Fall Risk: 05/12/23 Dental Screening Dental Screen Date: 05/12/23 Did you have a dental visit in the last 12 months?: No Did you have a dental problem in the last 6 months where you did not have access to dental care?: No Was dental information given to patient?: Patient declined HPI Follow Up~ HPI Details Patient is a 63-year-old gentlemen who has been having multiple medical problems started with his knee pain and swelling Both of his knees continue to be swollen and painful and weak. He is trying to get in touch with the wrapper stitcher and so far has not had any luck with appointments We will see if we can assist patient to get established with [facility] He also continued to be anemic his hemoglobin was 9.1 April 10 and it is 8.7 today He is under care of Hematology [facility] Dr. No who is in process to get patient in for biopsy. He has seen gastroenterology last year and had colonoscopy done I thing it will be a good idea for him to continue having evaluation due to anemia as the workup is in progress I have sent a message to gastroenterology office to book appointment for the patient Meanwhile he is in need of script for wheelchair Gait belt Transfer bench And ensure patient would like to have a chocola flavor, script sent to [facility] He has no appetite and is losing weight. His BMI is 19.3 His albumin is now 2.9 PFSH Medical History Knee arthropathy Vitamin D deficiency Helicobacter pylori (H. pylori) Tubular adenoma Dysphagia Non-toxic multinodular goiter Other and unspecified hyperlipidemia Cerebrovascular accident Coronary artery disease History of stroke Lipid disorder Hypertension, essential Surgical History Hx of thyroidectomy Hx of ultrasound guided needle biopsy History of esophagogastroduodenoscopy (EGD) History of colonoscopy Family History Father Dementia Mother HTN (hypertension) Brother Mental health disorder Substance use disorder Social History Household Members: Spouse Housing: Condominium Alcohol intake: never Patient Tobacco Use Status: Never used Tobacco e-Cigarette/Vaping Use: Never Used Second Hand Smoke Exposure: Yes ( smokes) Advance Directives Date on File: 12/11/22 service: No Current occupational status: disabled Cognitive needs: No Hearing needs: No Vision needs: No Questionnaire Thrive Questionnaire Date Thrive assessed: 12/10/22 AUDIT C Alcohol Use Questionnaire (AUDIT-C) 1. How often do you have a drink containing alcohol?: Never 3. How often do you have six or more drinks on one occasion?: Never Total Score: 0 Score Reviewed/Action Taken: Yes MAGO-7 AMB Questionnaire MAGO-7 Date MAGO - 7 assessed: 12/04/21 Source: Developed by Drs. Chapin Aguilar, Karen Camargo, Tunde Lyles and colleagues, with an educational lu from [employer]. Review of Systems Const Denies chills and Denies fever(s) ENT Denies epistaxis and Denies nasal discharge Card Denies chest pain Resp Denies chest congestion, Denies cough and Denies hemoptysis GI Denies diarrhea and Denies nausea Skin/Breast Denies rash Neuro Reports no additional complaints Psych Reports no additional complaints Endo Reports no additional complaints Physical exam (Primary Care) Vital Signs: Last Vital Signs Pulse 112 H 05/12/23 12:31 BP 128/80 05/12/23 12:31 Pulse Ox 98 05/12/23 12:31 Oxygen Delivery Method Room Air 05/12/23 12:31 BMI result Body Mass Index 19.3 Tobacco/Smoking Status: Tobacco use Status Tobacco use date assessed 05/12/23 05/12/23 12:32 Patient Tobacco Use Status Never used Tobacco 05/12/23 12:32 e-Cigarette/Vaping Use Never Used 05/12/23 12:32 Thrive Assessment: Date of Thrive Assessment Date Thrive assessed 12/10/22 05/12/23 12:32 Const Other: Pale looking gentleman sitting in wheelchair in no acute distress General: cooperative and comfortable Orientation/consciousness: patient oriented x3 HENMT Head: Yes normocephalic Eyes General: appearance normal, both eyes and all related structures Neck Neck: Yes supple Resp Effort & Inspection: normal respiratory effort, no cough and no stridor Cardio Rhythm: regular rhythm Heart sounds: S1 normal heart sound present and S2 normal heart sound present Skin General skin exam: turgor normal Neuro General: patient oriented x3, tone normal and moves all extremities Extrem Other: Both knees swollen left laterally and right medially range of motion limited, no pain with pressure no skin inflammation Assessment and Plan Assessment & Plan (1) Malnourished: Code(s): E46 - Unspecified protein-calorie malnutrition Qualifiers: Malnutrition type: protein-calorie malnutrition Protein-calorie malnutrition severity: mild Qualified Code(s): E44.1 - Mild protein-calorie malnutrition (2) Normochromic normocytic anemia: Code(s): D64.9 - Anemia, unspecified (3) Appetite impaired: Code(s): R63.0 - Anorexia (4) Bilateral knee swelling: Code(s): M25.461 - Effusion, right knee; M25.462 - Effusion, left knee (5) Knee deformity, acquired: Code(s): M21.969 - Unspecified acquired deformity of unspecified lower leg Qualifiers: Laterality: left Qualified Code(s): M21.962 - Unspecified acquired deformity of left lower leg (6) Weight loss: Code(s): R63.4 - Abnormal weight loss (7) Knee arthropathy: Code(s): M17.10 - Unilateral primary osteoarthritis, unspecified knee (8) Leg weakness, bilateral: Code(s): R29.898 - Other symptoms and signs involving the musculoskeletal system (9) History of stroke: Code(s): Z86.73 - Personal history of transient ischemic attack (TIA), and cerebral infarction without residual deficits (10) Hypertrophic cardiomyopathy: Code(s): I42.2 - Other hypertrophic cardiomyopathy (11) Difficulty walking: Code(s): R26.2 - Difficulty in walking, not elsewhere classified (12) Hypoalbuminemia due to protein-calorie malnutrition: Code(s): E88.09 - Other disorders of plasma-protein metabolism, not elsewhere classified; E46 - Unspecified protein-calorie malnutrition Plan Patient is a 63-year-old gentlemen who has been having multiple medical problems started with his knee pain and swelling Both of his knees continue to be swollen and painful and weak. He is trying to get in touch with the wrapper stitcher and so far has not had any luck with appointments We will see if we can assist patient to get established with [facility] He also continued to be anemic his hemoglobin was 9.1 April 10 and it is 8.7 today He is under care of Hematology [facility] Dr. No who is in process to get patient in for biopsy. He has seen gastroenterology last year and had colonoscopy done I thing it will be a good idea for him to continue having evaluation due to anemia as the workup is in progress I have sent a message to gastroenterology office to book appointment for the patient Meanwhile he is in need of script for wheelchair Gait belt Transfer bench And ensure patient would like to have a chocola flavor, script sent to [facility] He has no appetite and is losing weight. His BMI is 19.3 His albumin is now 2.9 Orders: Referrals Rheumatology Referral M21.969 - Unspecified acquired deformity of unspecified lower leg, M25.461 - Effusion, right knee, M25.462 - Effusion, left knee Medications: New [Wheelchair] As directed 1 ea 0RF E46 - Unspecified protein-calorie malnutrition, M21.969 - Unspecified acquired deformity of unspecified lower leg, R26.2 - Difficulty in walking, not elsewhere classified, R29.898 - Other symptoms and signs involving the musculoskeletal system, Z86.73 - Personal history of transient ischemic attack (TIA), and cerebral infarction without residual deficits [Gait belt] As directed 1 ea 0RF I42.2 - Other hypertrophic cardiomyopathy, R26.2 - Difficulty in walking, not elsewhere classified, R29.898 - Other symptoms and signs involving the musculoskeletal system [Transfer bench] As directed 1 ea 0RF E46 - Unspecified protein-calorie malnutrition, M21.969 - Unspecified acquired deformity of unspecified lower leg, R26.2 - Difficulty in walking, not elsewhere classified, R29.898 - Other symptoms and signs involving the musculoskeletal system, Z86.73 - Personal history of transient ischemic attack (TIA), and cerebral infarction without residual deficits [Ensure] 1 unit PO 3XD 90 multiple units 5RF E46 - Unspecified protein-calorie malnutrition, E88.09 - Other disorders of plasma-protein metabolism, not elsewhere classified, R63.0 - Anorexia, R63.4 - Abnormal weight loss Coding Level of Care Code Est Pt Level 5 (94772) Diagnoses Mild protein-calorie malnutrition E44.1 Malnutrition type: protein-calorie malnutrition Protein-calorie malnutrition severity: mild Normochromic normocytic anemia D64.9 Appetite impaired R63.0 Bilateral knee swelling M25.461; M25.462 Acquired deformity of left knee M21.962 Laterality: left Weight loss R63.4 Knee arthropathy M17.10 Leg weakness, bilateral R29.898 History of stroke Z86.73 Hypertrophic cardiomyopathy I42.2 Difficulty walking R26.2 Hypoalbuminemia due to protein-calorie malnutrition E88.09; E46 Time Spent (min) 45 Comment 5 minute preparation, 25 with patient, 15 charting coordination of care
== END 2023-05-12 15:06 | disposition home or self-care (01) ==
PROVIDERS: PCP Internal Medicine; Visit Provider Internal Medicine
DX: E44.1 Mild protein-calorie malnutrition (principal); I42.2 Other hypertrophic cardiomyopathy; E46 Unspecified protein-calorie malnutrition; D64.9 Anemia, unspecified; R63.0 Anorexia; M25.461 Effusion, right knee; M25.462 Effusion, left knee; M21.962 Unspecified acquired deformity of left lower leg; R63.4 Abnormal weight loss; M17.10 Unilateral primary osteoarthritis, unspecified knee; R29.898 Other symptoms and signs involving the musculoskeletal system; Z86.73 Personal history of transient ischemic attack (TIA), and cerebral infarction without residual deficits
CPT/HCPCS: 99215

== ENCOUNTER 2023-05-29 09:22 | Outpatient (REF) | payer MEDICARE, MEDICAID, SELFPAY | END 2023-05-29 09:23 | disposition home or self-care (01) | LOC: HO.HOSX 09:22 | PROVIDERS: Visit Provider Orthopaedic Surgery | DX: Z13.89 Encounter for screening for other disorder (principal) ==

== ENCOUNTER 2023-07-08 11:45 | Outpatient (REF) | payer MEDICARE, MEDICAID, SELFPAY ==
[2023-07-08 16:26] LABS: Appearance Urine Turbid; Color Urine Dark Yellow; Glucose Urine UA 250 mg/dL (Negative); Leukocyte Esterase Urine Moderate (2+) (Negative); Nitrite Urine Positive (Negative); PH >= 9.0 (5.0-9.0); Specific Gravity - Urine 1.025 (1.005-1.025); UMIC TRIGGER UACC YES; Urine Blood Negative (Negative); Urine Ketones Negative (Negative); Urine Protein 300 (3+) mg/dL (Neg-Trace)
[2023-07-08 16:41] LABS: Bacteria Urine 4+ (None Seen); Squamous Epithelial Cell Urine 0-2 /HPF (0-2); UACC Culture Trigger YES
== END 2023-07-08 11:46 | disposition home or self-care (01) ==
LOC: HO.HMGCLNP 11:45
PROVIDERS: PCP Internal Medicine; Visit Provider Internal Medicine
DX: R82.90 Unspecified abnormal findings in urine (principal)
CPT/HCPCS: 81001; 87086

== ENCOUNTER 2023-07-08 13:59 | Outpatient (AMB) | payer MEDICARE, MEDICAID, SELFPAY ==
--- NOTE | 2023-07-08 14:00 | A.OFFPC_ITS ---
Vital Signs 07/08/23 14:01 Height 6 ft 2 in BMI Reason not done Patient refused/unable BP 130/74 Blood Pressure Location Rt brachial Position Sitting Pulse 112 H Pulse Source Pulse Oximeter Pulse Oximetry (%) 100 Oxygen Delivery Method Room Air Intake Visit Reasons: weight loss, angry Allergies No Known Allergies Allergy (Verified 07/08/23 14:02) Medication List - Last Reconciled 07/08/23 by Katelyn Mccoy MD amlodipine 10 mg PO DAILY 90 days ascorbic acid (vitamin C) (Vitamin C) 500 mg PO BID [Boost supplement As directed] cane As directed carvedilol 25 mg PO BID 90 days cholecalciferol (vitamin D3) 1,250 mcg PO QWEEK 8 weeks cholecalciferol (vitamin D3) 50 mcg PO DAILY 30 days clopidogrel 75 mg PO DAILY 90 days cyanocobalamin (vitamin B-12) 1,000 mcg PO DAILY [Disposable brief Use for episodes of bowel incontinence. ] ferrous sulfate 325 mg PO BID food supplemt, lactose-reduced (Ensure Original oral liquid) 4 ea PO DAILY [Gait belt As directed] [Hinged knee brace As directed] Knee brace As directed leflunomide 20 mg PO DAILY omeprazole 20 mg PO BID prednisone 5 mg PO DAILY [Raised toilet seat with arms As directed] sennosides (Senokot) 8.6 mg PO BID [Shower bench As directed] simvastatin 40 mg PO BEDTIME tramadol 50 mg PO Q6H PRN Transfer Bench As directed [Transfer bench As directed] [Wheelchair As directed] [wheelchair As directed] Tobacco use date assessed: 07/08/23 Fall risk assessment: No Falls in past year Last assessed Fall Risk: 07/08/23 Dental Screening Dental Screen Date: 07/08/23 Did you have a dental visit in the last 12 months?: No Did you have a dental problem in the last 6 months where you did not have access to dental care?: No Was dental information given to patient?: Patient declined HPI weight loss, angry HPI Details Patient is a 63-year-old gentlemen who has been going through a difficult time because of his health issues Patient is supposed to be seeing number of providers but he has been missing his appointments. He was last seen at Cardiology office in November and was supposed to go back for follow-up in May but that was not done Family is trying their best to take care of is feeling overwhelmed as now patient is so weak he is not able to make it to bathroom He does have a personal development mentor we are in a process to approve more hours. He is not eating has no appetite and is not drinking water he looks dehydrated his urine is very concentrated. Last time he was in hospital was March in [facility] the adjusted his medications Patient had thyroid lobe removed earlier this year, Last time he had a TSH check was in May it was within normal limit. He is also chronically anemic And has arthritis in both his knees. He had a stroke last year and was seen by neurologist stopped that He has a rheumatology appointment coming up in August. However since patient is not drinking and is dehydrated I would recommend that he goes to the emergency room This time I think it would be reasonable if he is taken to a tertiary care by the family. I spoke to patient regarding going to emergency room and he agrees. His ankles are swollen with 2+ pitting edema, and he looks malnourished. Patient is tachycardic as well 112 beats per minute, lungs are clear. He does not have any pain in his abdomen. He is answering question appropriately I had a meeting with his separately and his daughter separately And then we all met together in presence of behavior health coordinator to assist in care of this patient [facility] Medical History Knee arthropathy Vitamin D deficiency Helicobacter pylori (H. pylori) Tubular adenoma Dysphagia Non-toxic multinodular goiter Other and unspecified hyperlipidemia Cerebrovascular accident Coronary artery disease History of stroke Lipid disorder Hypertension, essential Surgical History Hx of thyroidectomy Hx of ultrasound guided needle biopsy History of esophagogastroduodenoscopy (EGD) History of colonoscopy Family History Father Dementia Mother HTN (hypertension) Brother Mental health disorder Substance use disorder Social History Household Members: Spouse Housing: Condominium Alcohol intake: never Comment: right sided weakness Patient Tobacco Use Status: Never used Tobacco e-Cigarette/Vaping Use: Never Used Second Hand Smoke Exposure: Yes ( smokes) Advance Directives Date on File: 12/11/22 service: No Current occupational status: disabled Cognitive needs: No Hearing needs: No Vision needs: No Questionnaire Thrive Questionnaire Date Thrive assessed: 12/10/22 AUDIT C Alcohol Use Questionnaire (AUDIT-C) 1. How often do you have a drink containing alcohol?: Never 3. How often do you have six or more drinks on one occasion?: Never Total Score: 0 MAGO-7 AMB Questionnaire MAGO-7 Date MAGO - 7 assessed: 12/04/21 Source: Developed by Drs. Chapin Aguilar, Karen Camargo, Tunde Lyles and colleagues, with an educational lu from [employer]. Review of Systems Const Denies fever(s) ENT Denies epistaxis and Denies nasal discharge Card Denies chest pain Resp Denies chest congestion, Denies cough and Denies hemoptysis GI Denies diarrhea and Denies nausea Skin/Breast Denies rash Neuro Reports no additional complaints Psych Reports no additional complaints Endo Reports no additional complaints Physical exam (Primary Care) Vital Signs: Last Vital Signs Pulse 112 H 07/08/23 14:01 BP 130/74 07/08/23 14:01 Pulse Ox 100 07/08/23 14:01 Oxygen Delivery Method Room Air 07/08/23 14:01 Tobacco/Smoking Status: Tobacco use Status Tobacco use date assessed 07/08/23 07/08/23 14:05 Patient Tobacco Use Status Never used Tobacco 07/08/23 14:05 e-Cigarette/Vaping Use Never Used 07/08/23 14:05 Thrive Assessment: Date of Thrive Assessment Date Thrive assessed 12/10/22 07/08/23 14:05 Const General: cooperative, comfortable and no acute distress Orientation/consciousness: patient oriented x3 HENMT Head: Yes normocephalic Eyes General: appearance normal, both eyes and all related structures Neck Neck: Yes supple Resp Effort & Inspection: normal respiratory effort, no cough and no stridor Cardio Rhythm: regular rhythm Heart sounds: S1 normal heart sound present and S2 normal heart sound present Skin General skin exam: turgor normal Neuro Other: Well-nourished gentleman sitting in wheelchair in no acute distress answers appropriately General: patient oriented x3 Extrem Other: 2+ pitting edema both ankles Assessment and Plan Assessment & Plan (1) Failure to thrive syndrome, adult: Code(s): R62.7 - Adult failure to thrive (2) Hypoalbuminemia due to protein-calorie malnutrition: Code(s): E88.09 - Other disorders of plasma-protein metabolism, not elsewhere classified; E46 - Unspecified protein-calorie malnutrition (3) Weight loss: Code(s): R63.4 - Abnormal weight loss (4) Malnourished: Code(s): E46 - Unspecified protein-calorie malnutrition Qualifiers: Malnutrition type: protein-calorie malnutrition Protein-calorie malnutrition severity: mild Qualified Code(s): E44.1 - Mild protein-calorie malnutrition (5) Normochromic normocytic anemia: Code(s): D64.9 - Anemia, unspecified (6) Major depression, recurrent: Code(s): F33.9 - Major depressive disorder, recurrent, unspecified Qualifiers: Active/Remission status: currently active Major depression episode severity: moderate Qualified Code(s): F33.1 - Major depressive disorder, recurrent, moderate (7) Hypertrophic cardiomyopathy: Code(s): I42.2 - Other hypertrophic cardiomyopathy (8) Lipid disorder: Code(s): E78.9 - Disorder of lipoprotein metabolism, unspecified (9) Hypertension, essential: Code(s): I10 - Essential (primary) hypertension (10) History of stroke: Code(s): Z86.73 - Personal history of transient ischemic attack (TIA), and cerebral infarction without residual deficits Plan Patient is a 63-year-old gentlemen who has been going through a difficult time because of his health issues Patient is supposed to be seeing number of providers but he has been missing his appointments. He was last seen at Cardiology office in November and was supposed to go back for follow-up in May but that was not done Family is trying their best to take care of is feeling overwhelmed as now patient is so weak he is not able to make it to bathroom He does have a personal development mentor we are in a process to approve more hours. He is not eating has no appetite and is not drinking water he looks dehydrated his urine is very concentrated. Last time he was in hospital was March in [facility] the adjusted his medications Patient had thyroid lobe removed earlier this year, Last time he had a TSH check was in May it was within normal limit. He is also chronically anemic And has arthritis in both his knees. He had a stroke last year and was seen by neurologist stopped that He has a rheumatology appointment coming up in August. However since patient is not drinking and is dehydrated I would recommend that he goes to the emergency room This time I think it would be reasonable if he is taken to a tertiary care by the family. I spoke to patient regarding going to emergency room and he agrees. His ankles are swollen with 2+ pitting edema, and he looks malnourished. Patient is tachycardic as well 112 beats per minute, lungs are clear. He does not have any pain in his abdomen. He is answering question appropriately I had a meeting with his separately and his daughter separately And then we all met together in presence of behavior health coordinator to assist in care of this patient Family had a meeting and they decided to take patient to [facility] rather than tertiary care Ambulance was called in for transportation Coding Level of Care Code Est Pt Level 5 (80057) Diagnoses Failure to thrive syndrome, adult R62.7 Hypoalbuminemia due to protein-calorie malnutrition E88.09; E46 Weight loss R63.4 Mild protein-calorie malnutrition E44.1 Malnutrition type: protein-calorie malnutrition Protein-calorie malnutrition severity: mild Normochromic normocytic anemia D64.9 Moderate episode of recurrent major depressive disorder F33.1 Active/Remission status: currently active Major depression episode severity: moderate Hypertrophic cardiomyopathy I42.2 Lipid disorder E78.9 Hypertension, essential I10 History of stroke Z86.73 Time Spent (min) 45 Comment 45 minutes spent in care this patient
[2023-07-08 14:01] VITALS: BP 130/74; PULSE 112; O2SAT 100
== END 2023-07-08 15:59 | disposition home or self-care (01) ==
LOC: HO.HMGC 14:00
PROVIDERS: PCP Internal Medicine; Visit Provider Internal Medicine
DX: E46 Unspecified protein-calorie malnutrition (principal); E44.1 Mild protein-calorie malnutrition; F33.1 Major depressive disorder, recurrent, moderate; I42.2 Other hypertrophic cardiomyopathy; R62.7 Adult failure to thrive; E88.09 Other disorders of plasma-protein metabolism, not elsewhere classified; R63.4 Abnormal weight loss; D64.9 Anemia, unspecified; E78.9 Disorder of lipoprotein metabolism, unspecified; I10 Essential (primary) hypertension; Z86.73 Personal history of transient ischemic attack (TIA), and cerebral infarction without residual deficits
CPT/HCPCS: 99215

== ENCOUNTER 2023-10-08 09:48 | Outpatient (AMB) | payer MEDICARE, MEDICAID, SELFPAY ==
--- NOTE | 2023-10-08 09:49 | A.OFFPC_ITS ---
Vital Signs 10/08/23 09:51 Height 6 ft 2 in Intake Visit Reasons: Discuss concerns ~ Allergies No Known Allergies Allergy (Verified 07/08/23 14:02) Medication List - Last Reconciled 10/08/23 by Katelyn Mccoy MD [Adjustable pressure release mattress As directed] amlodipine 10 mg PO DAILY 90 days ascorbic acid (vitamin C) (Vitamin C) 500 mg PO BID [bedside table As directed] [Boost supplement As directed] cane As directed carvedilol 25 mg PO BID 90 days cholecalciferol (vitamin D3) 1,250 mcg PO QWEEK 8 weeks clopidogrel 75 mg PO DAILY 90 days cyanocobalamin (vitamin B-12) 1,000 mcg PO DAILY [Disposable brief Use for episodes of bowel incontinence. ] ferrous sulfate 325 mg PO BID food supplemt, lactose-reduced (Ensure Original oral liquid) 4 ea PO DAILY [Gait belt As directed] [Hinged knee brace As directed] Knee brace As directed leflunomide 20 mg PO DAILY metoprolol tartrate 100 mg PO BID omeprazole 20 mg PO BID [Raised toilet seat with arms As directed] sennosides (Senokot) 8.6 mg PO BID sertraline 25 mg PO DAILY [Shower bench As directed] simvastatin 40 mg PO BEDTIME [slide transfer board As directed] tramadol 50 mg PO Q6H PRN Transfer Bench As directed [Transfer bench As directed] [Wheelchair As directed] [wheelchair As directed] Tobacco use date assessed: 10/08/23 Fall risk assessment: No Falls in past year Last assessed Fall Risk: 10/08/23 Dental Screening Dental Screen Date: 10/08/23 Did you have a dental visit in the last 12 months?: Yes Did you have a dental problem in the last 6 months where you did not have access to dental care?: No Was dental information given to patient?: Patient has dentist HPI Discuss concerns ~ HPI Details Patient is 63-year-old gentleman who was admitted [facility] July 12 and was discharged on 07/22/2023 to [facility] Patient have past medical history significant for stroke, coronary artery disease, hyperlipidemia, hypertension, multinodular goiter status post partial thyroidectomy, rheumatoid arthritis Patient was referred there by me due to severe weakness. In emergency room patient was found to be severely anemic requiring emergent blood transfusion and also was found to have UTI. He was started on iron supplement after admission and was given IV antibiotics. He is blood cultures were unremarkable. Patient is bedbound and severely deconditioned. He also suffers from severe depression however he continued to deny when he saw me. In-hospital he was started on sertraline 25 mg. Patient have inter gluteal cleft wound for that wound team was consulted. Patient is in need of low BOLA mattress for that reason We will fill paperwork for that so the insurance can not approve for the patient. It has been difficult for patient to ambulate since January of 2023 when he developed septic arthritis of his left knee requiring surgical intervention, he suffers from rheumatoid arthritis as well. Patient is in need of pain management, currently he is taking tramadol at least once a day and sometimes 2 times a day is requesting script which I have sent for the patient along with vitamin- D. He has physical therapy once a week currently coming to home Occupational therapy once a week And visiting nurses come over 2 times a week He will have [employer] come over for 6 hours daily from this coming Thursday His services are approved for 32 hours a week tells me that it is difficult for patient to get out of bed unless somebody helps him I have told them to start doing that every day once CNAs starts coming on Thursday it is very important for patient to sit up at least once a day and try to walk. It will facilitate healing of his inter gluteal wound as well. Since patient is bedbound I feel that he does not have access to water as much Even though family is trying to have him drink as much as they can. The tell me that his urine is very concentrated He is using diapers currently for bowel movement as well as for urine Last time he had labs done was September 14, 2023 and his hemoglobin was 7.3 I will be providing lab order to have blood test done every 2 weeks by visiting nurses If his hemoglobin dropped below 7 patient will need blood transfusion again I will also provide him with standing order for urinalysis We also discussed possibility of hospice care, says that she will discuss it with the family He is able to swallow and drink liquids, but he does not have any appetite is enquiring about medical marijuana, which I have given her information to reach out to providers who can help her with medical marijuana For artery artery disease, hypertension and hyperlipidemia Patient is on atorvastatin 20 mg daily and metoprolol 25 mg b.i.d. Multinodular goiter status post partial thyroidectomy His TSH was 1.2 to on 07/12/2023 For rheumatoid arthritis Patient is on Leflunomide 20 mg daily and lidocaine patches to his knees along with tramadol 50 mg up to 2 times a day Continue sertraline for depression GERD: Continue pantoprazole 40 mg daily Inter gluteal cleft wound, continue Z guard For bowel movement patient is on Colace 100 mg b.i.d. and senna tablet b.i.d. He was given DVT prophylaxis in the hospital with Levenox 40 mg daily Iron supplement 325 mg 2 times a day for anemia On a video, patient was able to communicate clearly it seems as if he is able to understand and make decisions, however he was on his bed All communication was taken place with his in front of him [facility] Medical History Knee arthropathy Vitamin D deficiency Helicobacter pylori (H. pylori) Tubular adenoma Dysphagia Non-toxic multinodular goiter Other and unspecified hyperlipidemia Cerebrovascular accident Coronary artery disease History of stroke Lipid disorder Hypertension, essential Surgical History Hx of thyroidectomy Hx of ultrasound guided needle biopsy History of esophagogastroduodenoscopy (EGD) History of colonoscopy Family History Father Dementia Mother HTN (hypertension) Brother Mental health disorder Substance use disorder Social History Household Members: Spouse Housing: Condominium Alcohol intake: never Comment: right sided weakness Patient Tobacco Use Status: Never used Tobacco e-Cigarette/Vaping Use: Never Used Second Hand Smoke Exposure: Yes ( smokes) Advance Directives Date on File: 12/11/22 service: No Current occupational status: disabled Cognitive needs: No Hearing needs: No Vision needs: No Questionnaire Thrive Questionnaire Date Thrive assessed: 12/10/22 AUDIT C Alcohol Use Questionnaire (AUDIT-C) 1. How often do you have a drink containing alcohol?: Never 3. How often do you have six or more drinks on one occasion?: Never Total Score: 0 Score Reviewed/Action Taken: Yes MAGO-7 AMB Questionnaire MAGO-7 Date MAGO - 7 assessed: 12/04/21 Source: Developed by Drs. Chpain Aguilar, Karen Camargo, Tunde Lyles and colleagues, with an educational lu from [employer]. Review of Systems Const Denies chills and Denies fever(s) ENT Denies epistaxis and Denies nasal discharge Card Denies chest pain Resp Denies chest congestion, Denies cough and Denies hemoptysis GI Denies diarrhea and Denies nausea Neuro Reports no additional complaints Psych Reports no additional complaints Endo Reports no additional complaints Physical exam (Primary Care) Tobacco/Smoking Status: Tobacco use Status Tobacco use date assessed 10/08/23 10/08/23 09:51 Patient Tobacco Use Status Never used Tobacco 10/08/23 09:49 e-Cigarette/Vaping Use Never Used 10/08/23 09:49 Thrive Assessment: Date of Thrive Assessment Date Thrive assessed 12/10/22 10/08/23 09:49 Telehealth Telehealth Location of provider rendering services: practice address Location of patient: address on file Patient Identification confirmed using: Name, : Yes Telehealth method: video Patient verbally consented to treatment: Yes Patient verbally consented to billing insurance company: Yes Patient informed of any privacy concerns related to visit: Yes Assessment and Plan Assessment & Plan (1) Failure to thrive syndrome, adult: Code(s): R62.7 - Adult failure to thrive (2) Foul smelling urine: Code(s): R82.90 - Unspecified abnormal findings in urine (3) Hypoalbuminemia due to protein-calorie malnutrition: Code(s): E88.09 - Other disorders of plasma-protein metabolism, not elsewhere classified; E46 - Unspecified protein-calorie malnutrition (4) Difficulty walking: Code(s): R26.2 - Difficulty in walking, not elsewhere classified (5) Weight loss: Code(s): R63.4 - Abnormal weight loss (6) Appetite impaired: Code(s): R63.0 - Anorexia (7) Normochromic normocytic anemia: Code(s): D64.9 - Anemia, unspecified (8) Vitamin D deficiency: Code(s): E55.9 - Vitamin D deficiency, unspecified (9) LVH (left ventricular hypertrophy): Code(s): I51.7 - Cardiomegaly (10) Major depression, recurrent: Code(s): F33.9 - Major depressive disorder, recurrent, unspecified Qualifiers: Active/Remission status: currently active Major depression episode severity: moderate Qualified Code(s): F33.1 - Major depressive disorder, recurrent, moderate (11) Pain management: Code(s): R52 - Pain, unspecified (12) Other and unspecified hyperlipidemia: Code(s): E78.5 - Hyperlipidemia, unspecified (13) Cerebrovascular accident: Code(s): I63.9 - Cerebral infarction, unspecified Qualifiers: CVA mechanism: unspecified Qualified Code(s): I63.9 - Cerebral infarction, unspecified (14) Coronary artery disease: Code(s): I25.10 - Atherosclerotic heart disease of [place] coronary artery without angina pectoris Qualifiers: Associated angina: without angina Coronary Disease-Associated Artery/Lesion type: unspecified vessel or lesion type [place] vs. transplanted heart: [place] heart Qualified Code(s): I25.10 - Atherosclerotic heart disease of [place] coronary artery without angina pectoris (15) Lipid disorder: Code(s): E78.9 - Disorder of lipoprotein metabolism, unspecified (16) Hypertension, essential: Code(s): I10 - Essential (primary) hypertension (17) Pressure sore on buttocks: Code(s): L89.309 - Pressure ulcer of unspecified buttock, unspecified stage (18) H/O partial thyroidectomy: Code(s): E89.0 - Postprocedural hypothyroidism Plan Patient is 63-year-old gentleman who was admitted [facility] July 12 and was discharged on 07/22/2023 to [facility]hab facility Patient have past medical history significant for stroke, coronary artery disease, hyperlipidemia, hypertension, multinodular goiter status post partial thyroidectomy, rheumatoid arthritis Patient was referred there by me due to severe weakness. In emergency room patient was found to be severely anemic requiring emergent blood transfusion and also was found to have UTI. He was started on iron supplement after admission and was given IV antibiotics. He is blood cultures were unremarkable. Patient is bedbound and severely deconditioned. He also suffers from severe depression however he continued to deny when he saw me. In-hospital he was started on sertraline 25 mg. Patient have inter gluteal cleft wound for that wound team was consulted. Patient is in need of low BOLA mattress for that reason We will fill paperwork for that so the insurance can not approve for the pat ient. It has been difficult for patient to ambulate since January of 2023 when he developed septic arthritis of his left knee requiring surgical intervention, he suffers from rheumatoid arthritis as well. Patient is in need of pain management, currently he is taking tramadol at least once a day and sometimes 2 times a day is requesting script which I have sent for the patient along with vitamin- D. He has physical therapy once a week currently coming to home Occupational therapy once a week And visiting nurses come over 2 times a week He will have [employer] come over for 6 hours daily from this coming Thursday His services are approved for 32 hours a week tells me that it is difficult for patient to get out of bed unless somebody helps him I have told them to start doing that every day once CNAs starts coming on Thursday it is very important for patient to sit up at least once a day and try to walk. It will facilitate healing of his inter gluteal wound as well. Since patient is bedbound I feel that he does not have access to water as much Even though family is trying to have him drink as much as they can. The tell me that his urine is very concentrated He is using diapers currently for bowel movement as well as for urine Last time he had labs done was September 14, 2023 and his hemoglobin was 7.3 I will be providing lab order to have blood test done every 2 weeks by visiting nurses If his hemoglobin dropped below 7 patient will need blood transfusion again I will also provide him with standing order for urinalysis We also discussed possibility of hospice care, says that she will discuss it with the family He is able to swallow and drink liquids, but he does not have any appetite is enquiring about medical marijuana, which I have given her information to reach out to providers who can help her with medical marijuana For artery artery disease, hypertension and hyperlipidemia Patient is on atorvastatin 20 mg daily and metoprolol 25 mg b.i.d. Multinodular goiter status post partial thyroidectomy His TSH was 1.2 to on 07/12/2023 For rheumatoid arthritis Patient is on Leflunomide 20 mg daily and lidocaine patches to his knees along with tramadol 50 mg up to 2 times a day Continue sertraline for depression GERD: Continue pantoprazole 40 mg daily Inter gluteal cleft wound, continue Z guard For bowel movement patient is on Colace 100 mg b.i.d. and senna tablet b.i.d. He was given DVT prophylaxis in the hospital with Levenox 40 mg daily Iron supplement 325 mg 2 times a day for anemia On a video, patient was able to communicate clearly it seems as if he is able to understand and make decisions, however he was on his bed All communication was taken place with his in front of him Orders: Orders Complete Blood Count Auto Diff Today D64.9 - Anemia, unspecified, E46 - Unspecified protein-calorie malnutrition, E55.9 - Vitamin D deficiency, unspecified, E78.5 - Hyperlipidemia, unspecified, E78.9 - Disorder of lipoprotein metabolism, unspecified, E88.09 - Other disorders of plasma-protein metabolism, not elsewhere classified, F33.9 - Major depressive disorder, recurrent, unspecified, I10 - Essential (primary) hypertension, I25.10 - Atherosclerotic heart disease of [place] coronary artery without angina pectoris, I51.7 - Cardiomegaly, I63.9 - Cerebral infarction, unspecified, L89.309 - Pressure ulcer of unspecified buttock, unspecified stage, R26.2 - Difficulty in walking, not elsewhere classified, R52 - Pain, unspecified, R62.7 - Adult failure to thrive, R63.0 - Anorexia, R63.4 - Abnormal weight loss, R82.90 - Unspecified abnormal findings in urine Comprehensive Met. Panel Today D64.9 - Anemia, unspecified, E46 - Unspecified protein-calorie malnutrition, E55.9 - Vitamin D deficiency, unspecified, E78.5 - Hyperlipidemia, unspecified, E78.9 - Disorder of lipoprotein metabolism, unspecified, E88.09 - Other disorders of plasma-protein metabolism, not elsewhere classified, F33.9 - Major depressive disorder, recurrent, unspecified, I10 - Essential (primary) hypertension, I25.10 - Atherosclerotic heart disease of [place] coronary artery without angina pectoris, I51.7 - Cardiomegaly, I63.9 - Cerebral infarction, unspecified, L89.309 - Pressure ulcer of unspecified buttock, unspecified stage, R26.2 - Difficulty in walking, not elsewhere classified, R52 - Pain, unspecified, R62.7 - Adult failure to thrive, R63.0 - Anorexia, R63.4 - Abnormal weight loss, R82.90 - Unspecified abnormal findings in urine Ferritin Today D64.9 - Anemia, unspecified, E46 - Unspecified protein-calorie malnutrition, E55.9 - Vitamin D deficiency, unspecified, E78.5 - Hyperlipidemia, unspecified, E78.9 - Disorder of lipoprotein metabolism, unspecified, E88.09 - Other disorders of plasma-protein metabolism, not elsewhere classified, F33.9 - Major depressive disorder, recurrent, unspecified, I10 - Essential (primary) hypertension, I25.10 - Atherosclerotic heart disease of [place] coronary artery without angina pectoris, I51.7 - Cardiomegaly, I63.9 - Cerebral infarction, unspecified, L89.309 - Pressure ulcer of unspecified buttock, unspecified stage, R26.2 - Difficulty in walking, not elsewhere classified, R52 - Pain, unspecified, R62.7 - Adult failure to thrive, R63.0 - Anorexia, R63.4 - Abnormal weight loss, R82.90 - Unspecified abnormal findings in urine Complete Blood Count Auto Diff 2 Weeks D64.9 - Anemia, unspecified, E89.0 - Postprocedural hypothyroidism Vitamin B12 Today D64.9 - Anemia, unspecified, E46 - Unspecified protein-calorie malnutrition, E55.9 - Vitamin D deficiency, unspecified, E78.5 - Hyperlipidemia, unspecified, E78.9 - Disorder of lipoprotein metabolism, unspecified, E88.09 - Other disorders of plasma-protein metabolism, not elsewhere classified, F33.9 - Major depressive disorder, recurrent, unspecified, I10 - Essential (primary) hypertension, I25.10 - Atherosclerotic heart disease of [place] coronary artery without angina pectoris, I51.7 - Cardiomegaly, I63.9 - Cerebral infarction, unspecified, L89.309 - Pressure ulcer of unspecified buttock, unspecified stage, R26.2 - Difficulty in walking, not elsewhere classified, R52 - Pain, unspecified, R62.7 - Adult failure to thrive, R63.0 - Anorexia, R63.4 - Abnormal weight loss, R82.90 - Unspecified abnormal findings in urine UA CC w/rflx Micro + Cult Today D64.9 - Anemia, unspecified, E46 - Unspecified protein-calorie malnutrition, E55.9 - Vitamin D deficiency, unspecified, E78.5 - Hyperlipidemia, unspecified, E78.9 - Disorder of lipoprotein metabolism, unspecified, E88.09 - Other disorders of plasma-protein metabolism, not elsewhere classified, F33.9 - Major depressive disorder, recurrent, unspecified, I10 - Essential (primary) hypertension, I25.10 - Atherosclerotic heart disease of [place] coronary artery without angina pectoris, I51.7 - Cardiomegaly, I63.9 - Cerebral infarction, unspecified, L89.309 - Pressure ulcer of unspecified buttock, unspecified stage, R26.2 - Difficulty in walking, not elsewhere classified, R52 - Pain, unspecified, R62.7 - Adult failure to thrive, R63.0 - Anorexia, R63.4 - Abnormal weight loss, R82.90 - Unspecified abnormal findings in urine TSH reflex Free T4 Today D64.9 - Anemia, unspecified, E89.0 - Postprocedural hypothyroidism UA CC w/rflx Micro + Cult 2 Weeks R82.90 - Unspecified abnormal findings in urine Medications: New cholecalciferol (vitamin D3) 25 mcg PO DAILY 90 tabs 1RF 90 days Changed From tramadol 50 mg PO Q6H PRN 20 tabs 0RF pain To tramadol 50 mg PO BID PRN 60 tabs 0RF pain 30 days Discontinued cholecalciferol (vitamin D3) Discontinued Reason: Doctor's Order 1,250 mcg PO QWEEK 8 weeks 8 caps 0RF E55.9 - Vitamin D deficiency, unspecified Coding Level of Care Code Tele Est Pt Level 5 (44851) Diagnoses Failure to thrive syndrome, adult R62.7 Foul smelling urine R82.90 Hypoalbuminemia due to protein-calorie malnutrition E88.09; E46 Difficulty walking R26.2 Weight loss R63.4 Appetite impaired R63.0 Normochromic normocytic anemia D64.9 Vitamin D deficiency E55.9 LVH (left ventricular hypertrophy) I51.7 Moderate episode of recurrent major depressive disorder F33.1 Active/Remission status: currently active Major depression episode severity: moderate Pain management R52 Other and unspecified hyperlipidemia E78.5 Cerebrovascular accident (CVA), unspecified mechanism I63.9 CVA mechanism: unspecified Coronary artery disease involving [place] heart without angina pectoris, unspecified vessel or lesion type I25.10 Associated angina: without angina Coronary Disease-Associated Artery/Lesion type: unspecified vessel or lesion type [place] vs. transplanted heart: [place] heart Lipid disorder E78.9 Hypertension, essential I10 Pressure sore on buttocks L89.309 H/O partial thyroidectomy E89.0 Time Spent (min) 61 Comment 15 hospital/rehab notes, 30 with patient, 16 charting/coordination of care
== END 2023-10-08 10:44 | disposition home or self-care (01) ==
LOC: HO.HMGC 09:49
PROVIDERS: PCP Internal Medicine; Visit Provider Internal Medicine
DX: R62.7 Adult failure to thrive (principal); E46 Unspecified protein-calorie malnutrition; F33.1 Major depressive disorder, recurrent, moderate; I51.7 Cardiomegaly; Z86.73 Personal history of transient ischemic attack (TIA), and cerebral infarction without residual deficits; E88.09 Other disorders of plasma-protein metabolism, not elsewhere classified; R26.2 Difficulty in walking, not elsewhere classified; R82.90 Unspecified abnormal findings in urine; R63.4 Abnormal weight loss; R63.0 Anorexia; D64.9 Anemia, unspecified; E55.9 Vitamin D deficiency, unspecified
CPT/HCPCS: 99215

== ENCOUNTER 2023-12-03 08:36 | Outpatient (AMB) | payer MEDICARE, MEDICAID, SELFPAY ==
--- NOTE | 2023-12-03 08:57 | A.OFFPC_ITS ---
Intake Visit Reasons: [place] Paperwork~ [phone] Allergies No Known Allergies Allergy (Verified 12/03/23 08:57) Medication List - Last Reconciled 12/03/23 by Katelyn Mccoy MD [Adjustable pressure release mattress As directed] amlodipine 10 mg PO DAILY 90 days ascorbic acid (vitamin C) (Vitamin C) 500 mg PO BID [bedside table As directed] [Boost supplement As directed] cane As directed carvedilol 25 mg PO BID 90 days cholecalciferol (vitamin D3) 25 mcg PO DAILY 90 days clopidogrel 75 mg PO DAILY 90 days cyanocobalamin (vitamin B-12) 1,000 mcg PO DAILY [Disposable brief Use for episodes of bowel incontinence. ] ferrous sulfate 325 mg PO BID food supplemt, lactose-reduced (Ensure Original oral liquid) 4 ea PO DAILY [Gait belt As directed] [Hinged knee brace As directed] Knee brace As directed leflunomide 20 mg PO DAILY metoprolol tartrate 100 mg PO BID nitrofurantoin monohyd/m-cryst 100 mg (Macrobid) 100 mg PO Q12H 7 days omeprazole 20 mg PO BID [Raised toilet seat with arms As directed] sennosides (Senokot) 8.6 mg PO BID sertraline 25 mg PO DAILY [Shower bench As directed] simvastatin 40 mg PO BEDTIME [slide transfer board As directed] tramadol 50 mg PO BID PRN 30 days Transfer Bench As directed [Transfer bench As directed] [Wheelchair As directed] [wheelchair As directed] Tobacco use date assessed: 12/03/23 Fall risk assessment: No Falls in past year Last assessed Fall Risk: 12/03/23 Dental Screening Dental Screen Date: 12/03/23 Did you have a dental visit in the last 12 months?: No Did you have a dental problem in the last 6 months where you did not have access to dental care?: No Was dental information given to patient?: No HPI [facility] Paperwork~ [phone] HPI Details Patient is 63-year-old gentleman who is now bed ridden, with complications related to his health It all started with stroke few years ago Patient's family is trying to provide care for him This visit was to fill [facility] paperwork His and son is providing care for him The starting date be put 02/13/2023 that is when he was in hospital last time Since then family is providing care for him, personal hygiene, cleaning, preparing meals, grocery, medication supervision The ending date will be February 14 2024 After that we will filled and the paperwork if needed. [facility] Medical History Knee arthropathy Vitamin D deficiency Helicobacter pylori (H. pylori) Tubular adenoma Dysphagia Non-toxic multinodular goiter Other and unspecified hyperlipidemia Cerebrovascular accident Coronary artery disease History of stroke Lipid disorder Hypertension, essential Surgical History Hx of thyroidectomy Hx of ultrasound guided needle biopsy History of esophagogastroduodenoscopy (EGD) History of colonoscopy Family History Father Dementia Mother HTN (hypertension) Brother Mental health disorder Substance use disorder Social History Household Members: Spouse Housing: Condominium Alcohol intake: never Comment: right sided weakness Patient Tobacco Use Status: Never used Tobacco e-Cigarette/Vaping Use: Never Used Second Hand Smoke Exposure: Yes ( smokes) Advance Directives Date on File: 12/11/22 service: No Current occupational status: disabled Cognitive needs: No Hearing needs: No Vision needs: No Questionnaire Thrive Questionnaire Date Thrive assessed: 12/10/22 AUDIT C Alcohol Use Questionnaire (AUDIT-C) 1. How often do you have a drink containing alcohol?: Never 3. How often do you have six or more drinks on one occasion?: Never Total Score: 0 Score Reviewed/Action Taken: Yes MAGO-7 AMB Questionnaire MAGO-7 Date MAGO - 7 assessed: 12/04/21 Source: Developed by Drs. Chapin Aguilar, Karen Camargo, Tunde Lyles and colleagues, with an educational lu from [employer]. Review of Systems Const Denies chills and Denies fever(s) ENT Denies epistaxis and Denies nasal discharge Card Denies chest pain Resp Denies chest congestion, Denies cough and Denies hemoptysis GI Denies diarrhea and Denies nausea Skin/Breast Denies rash Neuro Reports no additional complaints Psych Reports no additional complaints Endo Reports no additional complaints Physical exam (Primary Care) Tobacco/Smoking Status: Tobacco use Status Tobacco use date assessed 12/03/23 12/03/23 08:59 Patient Tobacco Use Status Never used Tobacco 12/03/23 08:59 e-Cigarette/Vaping Use Never Used 12/03/23 08:59 Thrive Assessment: Date of Thrive Assessment Date Thrive assessed 12/10/22 12/03/23 08:59 Telehealth Telehealth Telehealth Platform: Telephone Location of provider rendering services: practice address Location of patient: address on file Patient Identification confirmed using: Name, : Yes Telehealth method: voice only Patient verbally consented to treatment: Yes Patient verbally consented to billing insurance company: Yes Patient informed of any privacy concerns related to visit: Yes Minutes spent on Phone/Video with Pt.: 16 Assessment and Plan Assessment & Plan (1) Failure to thrive syndrome, adult: Code(s): R62.7 - Adult failure to thrive (2) Hypoalbuminemia due to protein-calorie malnutrition: Code(s): E88.09 - Other disorders of plasma-protein metabolism, not elsewhere classified; E46 - Unspecified protein-calorie malnutrition (3) Difficulty walking: Code(s): R26.2 - Difficulty in walking, not elsewhere classified (4) Weight loss: Code(s): R63.4 - Abnormal weight loss (5) Cerebrovascular accident: Code(s): I63.9 - Cerebral infarction, unspecified Qualifiers: CVA mechanism: unspecified Qualified Code(s): I63.9 - Cerebral infarction, unspecified Plan Patient is 63-year-old gentleman who is now bed ridden, with complications related to his health It all started with stroke few years ago Patient's family is trying to provide care for him This visit was to fill FMLA paperwork His and son is providing care for him The starting date be put 02/13/2023 that is when he was in hospital last time Since then family is providing care for him, personal hygiene, cleaning, preparing meals, grocery, medication supervision The ending date will be February 14 2024 After that we will filled and the paperwork if needed. Coding Level of Care Code Tele Est Pt Level 3 (63889) Diagnoses Failure to thrive syndrome, adult R62.7 Hypoalbuminemia due to protein-calorie malnutrition E88.09; E46 Difficulty walking R26.2 Weight loss R63.4 Cerebrovascular accident (CVA), unspecified mechanism I63.9 CVA mechanism: unspecified
== END 2023-12-03 09:51 | disposition home or self-care (01) ==
LOC: HO.HMGC 08:36
PROVIDERS: PCP Internal Medicine; Visit Provider Internal Medicine
DX: R62.7 Adult failure to thrive (principal); E88.09 Other disorders of plasma-protein metabolism, not elsewhere classified; E46 Unspecified protein-calorie malnutrition; R26.2 Difficulty in walking, not elsewhere classified; I69.30 Unspecified sequelae of cerebral infarction; R63.4 Abnormal weight loss
CPT/HCPCS: 99442

== ENCOUNTER 2024-02-11 08:41 | Outpatient (AMB) | payer MEDICARE, MEDICAID, SELFPAY ==
--- NOTE | 2024-02-11 08:42 | MHC.PC.OV ---
Intake Visit Reasons: d/c [facility] 02/05/24~ [phone] Allergies No Known Allergies Allergy (Verified 02/11/24 08:44) Medication List - Last Reconciled 02/11/24 by Katelyn Mccoy MD [Adjustable pressure release mattress As directed] amlodipine 10 mg PO DAILY 90 days ascorbic acid (vitamin C) (Vitamin C) 500 mg PO BID [bedside table As directed] [Boost supplement As directed] cane As directed carvedilol 25 mg PO BID 90 days cholecalciferol (vitamin D3) 25 mcg PO DAILY 90 days clopidogrel 75 mg PO DAILY 90 days cyanocobalamin (vitamin B-12) 1,000 mcg PO DAILY [Disposable brief Use for episodes of bowel incontinence. ] ferrous sulfate 325 mg PO BID food supplemt, lactose-reduced (Ensure Original oral liquid) 4 ea PO DAILY [Gait belt As directed] [Hinged knee brace As directed] Knee brace As directed leflunomide 20 mg PO DAILY metoprolol tartrate 100 mg PO BID omeprazole 20 mg PO BID [Raised toilet seat with arms As directed] sennosides (Senokot) 8.6 mg PO BID sertraline 25 mg PO DAILY [Shower bench As directed] simvastatin 40 mg PO BEDTIME [slide transfer board As directed] tramadol 50 mg PO BID PRN 30 days Transfer Bench As directed [Transfer bench As directed] [Wheelchair As directed] [wheelchair As directed] Tobacco use date assessed: 02/11/24 Fall risk assessment: No Falls in past year Last assessed Fall Risk: 02/11/24 Dental Screening Dental Screen Date: 02/11/24 Did you have a dental visit in the last 12 months?: Yes Did you have a dental problem in the last 6 months where you did not have access to dental care?: No Was dental information given to patient?: Patient has dentist HPI d/c [facility] 02/05/24~ [phone] HPI Details Patient is 63 year old gentlemen, who is bed bound and is getting worse now have bed sores that need daily care thru [facility] repeated ER visits for blood transfusion has seen number of specialists but didnt get any releif suffers from Rhumatoid arthritis his is taking of him along with his Son has stopped going to Job now and is need to be exempted from electric bill as she cant afford to pay at his recent visit his Hb was around 6 and he got 3 unit of PRBCs, at discharge his Hb was 7.1 as per wifes request i have placed labs to be done every 2 wks thru [facility] we have talked about Palliative care today, understand and will talk to recent of family members he was given Bactrom in hospital and prednison 5 me 30 tabs for Rhumatoid arthritis after finishing 30 tabs he will stop prednison he has tramadol for pain to be taken as needed PFSH Medical History Knee arthropathy Vitamin D deficiency Helicobacter pylori (H. pylori) Tubular adenoma Dysphagia Non-toxic multinodular goiter Other and unspecified hyperlipidemia Cerebrovascular accident Coronary artery disease History of stroke Lipid disorder Hypertension, essential Surgical History Hx of thyroidectomy Hx of ultrasound guided needle biopsy History of esophagogastroduodenoscopy (EGD) History of colonoscopy Family History Father Dementia Mother HTN (hypertension) Brother Mental health disorder Substance use disorder Social History Household Members: Spouse Housing: Condominium Alcohol intake: never Comment: right sided weakness Patient Tobacco Use Status: Never used Tobacco e-Cigarette/Vaping Use: Never Used Second Hand Smoke Exposure: Yes ( smokes) Advance Directives Date on File: 12/11/22 service: No Current occupational status: disabled Cognitive needs: No Hearing needs: No Vision needs: No Questionnaire Thrive Questionnaire Date Thrive assessed: 12/10/22 AUDIT C Alcohol Use Questionnaire (AUDIT-C) 1. How often do you have a drink containing alcohol?: Never 3. How often do you have six or more drinks on one occasion?: Never Total Score: 0 Score Reviewed/Action Taken: Yes MAGO-7 AMB Questionnaire MAGO-7 Date MAGO - 7 assessed: 12/04/21 Source: Developed by Drs. Chapin Aguilar, Karen Camargo, Tunde Lyles and colleagues, with an educational lu from [employer]. Review of Systems Const Denies fever(s) ENT Denies epistaxis and Denies nasal discharge Card Denies chest pain Resp Denies chest congestion, Denies cough and Denies hemoptysis Neuro Reports no additional complaints Psych Reports no additional complaints Endo Reports no additional complaints Physical exam (Primary Care) Tobacco/Smoking Status: Tobacco use Status Tobacco use date assessed 02/11/24 02/11/24 08:44 Patient Tobacco Use Status Never used Tobacco 02/11/24 08:44 e-Cigarette/Vaping Use Never Used 02/11/24 08:44 Thrive Assessment: Date of Thrive Assessment Date Thrive assessed 12/10/22 02/11/24 08:44 Telehealth Telehealth Telehealth Platform: [employer] Location of provider rendering services: practice address Location of patient: address on file Patient Identification confirmed using: Name, : Yes Telehealth method: video Patient verbally consented to treatment: Yes Patient verbally consented to billing insurance company: Yes Patient informed of any privacy concerns related to visit: Yes Assessment and Plan Assessment & Plan (1) Failure to thrive syndrome, adult: Code(s): R62.7 - Adult failure to thrive (2) Hypoalbuminemia due to protein-calorie malnutrition: Code(s): E88.09 - Other disorders of plasma-protein metabolism, not elsewhere classified; E46 - Unspecified protein-calorie malnutrition (3) Difficulty walking: Code(s): R26.2 - Difficulty in walking, not elsewhere classified (4) Weight loss: Code(s): R63.4 - Abnormal weight loss (5) Cerebrovascular accident: Code(s): I63.9 - Cerebral infarction, unspecified Qualifiers: CVA mechanism: unspecified Qualified Code(s): I63.9 - Cerebral infarction, unspecified (6) Pressure sore on buttocks: Code(s): L89.309 - Pressure ulcer of unspecified buttock, unspecified stage Qualifiers: Pressure injury stage: stage 2 Laterality: unspecified laterality Qualified Code(s): L89.302 - Pressure ulcer of unspecified buttock, stage 2 (7) Appetite impaired: Code(s): R63.0 - Anorexia (8) Malnourished: Code(s): E46 - Unspecified protein-calorie malnutrition Qualifiers: Malnutrition type: protein-calorie malnutrition Protein-calorie malnutrition severity: mild Qualified Code(s): E44.1 - Mild protein-calorie malnutrition (9) Normochromic normocytic anemia: Code(s): D64.9 - Anemia, unspecified (10) Rheumatoid arthritis: Code(s): M06.9 - Rheumatoid arthritis, unspecified Qualifiers: Rheumatoid arthritis location: other site Rheumatoid factor presence: unspecified presence Qualified Code(s): M06.9 - Rheumatoid arthritis, unspecified Plan Patient is 63 year old gentlemen, who is bed bound and is getting worse now have bed sores that need daily care thru [facility] repeated ER visits for blood transfusion has seen number of specialists but didnt get any releif suffers from Rhumatoid arthritis his is taking of him along with his Son has stopped going to Job now and is need to be exempted from electric bill as she cant afford to pay at his recent visit his Hb was around 6 and he got 3 unit of PRBCs, at discharge his Hb was 7.1 as per wifes request i have placed labs to be done every 2 wks thru [facility] we have talked about Palliative care today, understand and will talk to recent of family members he was given Bactrom in hospital and prednison 5 me 30 tabs for Rhumatoid arthritis after finishing 30 tabs he will stop prednison he has tramadol for pain to be taken as needed 31 min spent in care of this patient Coding Level of Care Code Tele Est Pt Level 4 (44602) Diagnoses Failure to thrive syndrome, adult R62.7 Hypoalbuminemia due to protein-calorie malnutrition E88.09; E46 Difficulty walking R26.2 Weight loss R63.4 Cerebrovascular accident (CVA), unspecified mechanism I63.9 CVA mechanism: unspecified Pressure injury of buttock, stage 2, unspecified laterality L89.302 Pressure injury stage: stage 2 Laterality: unspecified laterality Appetite impaired R63.0 Mild protein-calorie malnutrition E44.1 Malnutrition type: protein-calorie malnutrition Protein-calorie malnutrition severity: mild Normochromic normocytic anemia D64.9 Rheumatoid arthritis of other site, unspecified whether rheumatoid factor present M06.9 Rheumatoid arthritis location: other site Rheumatoid factor presence: unspecified presence
== END 2024-02-11 10:39 | disposition home or self-care (01) ==
LOC: HO.HMGC 08:42
PROVIDERS: PCP Internal Medicine; Visit Provider Internal Medicine
DX: R62.7 Adult failure to thrive (principal); E46 Unspecified protein-calorie malnutrition; M06.9 Rheumatoid arthritis, unspecified; L89.302 Pressure ulcer of unspecified buttock, stage 2; E44.1 Mild protein-calorie malnutrition; I63.9 Cerebral infarction, unspecified; E88.09 Other disorders of plasma-protein metabolism, not elsewhere classified; R26.2 Difficulty in walking, not elsewhere classified; R63.4 Abnormal weight loss; R63.0 Anorexia; D64.9 Anemia, unspecified
CPT/HCPCS: 99214

== ENCOUNTER 2024-08-18 08:23 | Outpatient (AMB) | payer MEDICARE, MEDICAID, SELFPAY ==
--- OUTSIDE RECORDS SUMMARY | 2024-08-18 08:30 | XMS_ITS | Clinical Summary ---
Author Organization Unknown Care Team Providers Care Cosmetics Supervisor Name Role Phone VIRA PETTY, RORY Unavailable Unavailable VERO RN, GENO Unavailable Unavailable TAMIR SANTOSN, TEDDY Unavailable Unavailable ANDRÉS PT, POOL Unavailable Unavailable EDWARDO PORT CRANE OPERATOR, GILLIAN Unavailable Unavailable SPANEGRITA OT, ANITA Unavailable Unavailable Payers Payer Name Policy Type Policy Number Effective Date Expira tion Date MEDICARE.NGS.PDGM [id number] Problems Condition Name Condition Details Condition Category Status Onset Date Resolution Date Last Treatment Date Treating Clinician Comments SEPSIS, UNSPECIFIED ORGANISM Active 11-28 00:00: 00 URINARY TRACT INFECTION, SITE NOT SPECIFIED Active 11-28 00:00: 00 PROTEUS (MIRABILIS) (MORGANII) CAUSING DIS CLASSD ELSWHR Active 11-28 00:00: 00 ESSENTIAL (PRIMARY) HYPERTENSION Active 11-28 00:00: 00 ANEMIA, UNSPECIFIED Active 11-28 00:00: 00 CALCULUS OF KIDNEY Active 11-25 00:00: 00 NONTOXIC GOITER, UNSPECIFIED Active 11-25 00:00: 00 PURE HYPERCHOLEST EROLEMIA, UNSPECIFIED Active 11-25 00:00: 00 OTHER SPECIFIED DISEASES OF BLOOD AND BLOOD-FORMIN G ORGANS Active 11-25 00:00: 00 RASH AND OTHER NONSPECIFIC SKIN ERUPTION Active 11-25 00:00: 00 RHEUMATOID ARTHRITIS, UNSPECIFIED Active 11-25 00:00: 00 DEFICIENCY OF OTHER SPECIFIED B GROUP VITAMINS Active 11-25 00:00: 00 UNDERWEIGHT Active 11-25 00:00: 00 BODY MASS INDEX [BMI] 19.9 OR LESS, ADULT Active 11-25 00:00: 00 LIBRARY MONITOR (CURRENT) USE OF SYSTEMIC STEROIDS Active 11-25 00:00: 00 LIBRARY MONITOR (CURRENT) USE OF OPIATE ANALGESIC Active 11-25 00:00: 00 PRSNL HX OF TIA (TIA), AND CEREB INFRC W/O RESID DEFICITS Active 11-25 00:00: 00 BED CONFINEMENT STATUS Active 11-25 00:00: 00 PRESENCE OF UROGENITAL IMPLANTS Active 11-25 00:00: 00 Allergies, Adverse Reactions, Alerts Allergy Name Allergy Type Status Severity Reaction(s) Onset Date Inactive Date Treating Clinician Comments NO KNOWN ALLERGIES Propensity to adverse reactions Active 11-28 21:15: 32 Medications Ordered Medication Name Filled Medication Name Start Date Stop Date Current Medication? Ordering Clinician Indication Dosage Frequency Signature (SIG) Comments Components leflunomide 20 mg tablet 09-13 00:00: 00 Yes [id number] IMMUNOSUPPR ESSIVE 20 mg DAILY 20 mg DAILY (route: oral) Med Classific ation: Analgesic , Anti-infl ammatory or Antipyret ic amlodipine 5 mg tablet 09-10 00:00: 00 09-24 00:00 :00 No [id number] Per instruc tions Per instructio ns (route: oral) Med Classific ation: Cardiovas cular Therapy Agents atorvastati n 20 mg tablet 09-10 00:00: 00 11-28 00:00 :00 No [id number] HIGH CHOLESTEROL 1 tablet DAILY 1 tablet DAILY (route: oral) Med Classific ation: Cardiovas cular Therapy Agents metoprolol tartrate 100 mg tablet 2-08 00:00: 00 Yes [id number] HTN 100 mg 2 TIMES DAILY 100 mg 2 TIMES DAILY (route: oral) Med Classific ation: Cardiovas cular Therapy Agents metoprolol tartrate 50 mg tablet 09-10 00:00: 00 09-24 00:00 :00 No [id number] Per instruc tions Per instructio ns (route: oral) Med Classific ation: Cardiovas cular Therapy Agents mirtazapine 7.5 mg tablet 08 00:00: 00 Yes [id number] SLEEP 7.5 mg BEDTIME 7.5 mg BEDTIME (route: oral) Med Classific ation: Central Nervous System Agents pantoprazol e 40 mg tablet,acacia yed release 09-10 00:00: 00 Yes [id number] GERD 40 mg DAILY 40 mg DAILY (route: oral) Med Classific ation: Gastroint estinal Therapy Agents sertraline 25 mg tablet 09-10 00:00: 00 Yes [id number] DEPRESSION 25 mg DAILY 25 mg DAILY (route: oral) Med Classific ation: Central Nervous System Agents ascorbic acid (vitamin C) 500 mg tablet 09-24 00:00: 00 Yes [id number] SUPPLEMENT 5 mg 2 TIMES DAILY 5 mg 2 TIMES DAILY (route: oral) Med Classific ation: Electroly te Balance-N utritiona l Products cefpodoxime 100 mg tablet 09-24 00:00: 00 09-28 23:59 :00 No [id number] INFECTION 1 tablet 2 TIMES DAILY 1 tablet 2 TIMES DAILY (route: oral) Med Classific ation: Anti-Infe ctive Agents Letty-Time 325 mg (65 mg iron) tablet 09-24 00:00: 00 Yes [id number] ANEMIA 1 tablet 2 TIMES DAILY 1 tablet 2 TIMES DAILY (route: oral) Med Classific ation: Electroly te Balance-N utritiona l Products Senna Lax 8.6 mg tablet 09-24 00:00: 00 Yes [id number] CONSTIPATIO N 1 tablet 2 TIMES DAILY 1 tablet 2 TIMES DAILY (route: oral) Med Classific ation: Gastroint estinal Therapy Agents tramadol 50 mg tablet 09-24 00:00: 00 Yes [id number] SEVERE PAIN 50 mg EVERY 8 HOURS 50 mg EVERY 8 HOURS (route: oral) Med Classific ation: Analgesic , Anti-infl ammatory or Antipyret ic amlodipine 5 mg tablet 09-24 00:00: 00 Yes [id number] HTN 2 tablet DAILY 2 tablet DAILY (route: oral) Med Classific ation: Cardiovas cular Therapy Agents ondansetron HCl 4 mg tablet 09-24 00:00: 00 Yes [id number] NAUSEA 4 mg EVERY 8 HOURS 4 mg EVERY 8 HOURS (route: oral) Med Classific ation: Gastroint estinal Therapy Agents potassium chloride ER 20 mEq tablet,exte nded release 09-24 00:00: 00 09-25 23:59 :00 No [id number] HYPOKALEMIA 1 tablet DAILY 1 tablet DAILY (route: oral) Med Classific ation: Electroly te Balance-N utritiona l Products nitrofurant oin macrocrysta l 100 mg capsule 10-20 00:00: 00 10-27 23:59 :00 No [id number] UTI 1 capsule 2 TIMES DAILY 1 capsule 2 TIMES DAILY (route: oral) Med Classific ation: Genitouri nary Therapy folic acid 1 mg tablet 10-30 00:00: 00 Yes [id number] SUPPLEMENT 1 tablet DAILY 1 tablet DAILY (route: oral) Med Classific ation: Electroly te Balance-N utritiona l Products potassium, sodium phosphates 280 mg-160 mg-250 mg oral powder packet 10-30 00:00: 00 11-28 00:00 :00 No [id number] SUPPLEMENT 1 packet 2 TIMES DAILY 1 packet 2 TIMES DAILY (route: oral) Med Classific ation: Electroly te Balance-N utritiona l Products prednisone 5 mg tablet 11-03 00:00: 00 Yes [id number] ARTHRITIS 5 mg DAILY 5 mg NATHALIE Y (route: oral) Med Classific ation: Endocrine Vitamin B-12 1,000 mcg tablet 11-28 00:00: 00 Yes [id number] SUPPLEMENT 1000 mcg DAILY 1000 mcg DAILY (route: oral) Med Classific ation: Electroly te Balance-N utritiona l Products Vitamin D3 25 mcg (1,000 unit) capsule 11-28 00:00: 00 Yes [id number] SUPPLEMENT 25 mcg DAILY 25 mcg DAILY (route: oral) Med Classific ation: Electroly te Balance-N utritiona l Products Zocor 20 mg tablet 11-28 00:00: 00 Yes [id number] HIGH CHOLESTEROL 20 mg BEDTIME 20 mg BEDTIME (route: oral) Med Classific ation: Cardiovas cular Therapy Agents Immunizations Ordered Immunization Name Filled Immunization Name Date Status Comments Refusal Reason INFLUENZA, TIV (INACTIVATED) 2023-05-29 00:00:00 DOSE #2, COVID-19 VACCINE 2021-05-10 00:00:00 DOSE #1, COVID-19 VACCINE 2021-05-02 00:00:00 SHINGLES, TIV (INACTIVATED) 2018-09-24 00:00:00 Vital Signs Vital Name Observation Time Observation Value Commen ts Temperature 2024-01-20 12:16:00.000 97.1 [degF] Temperature 2024-01-13 13:42:00.000 97.2 [degF] Temperature 2024-01-07 10:53:00.000 98.1 [degF] Temperature 2024-01-05 10:05:00.000 97.3 [degF] Temperature 2023-12-31 12:29:00.000 97 [degF] Temperature 2023-12-24 11:05:00.000 97.2 [degF] Temperature 2023-12-22 10:34:00.000 97.9 [degF] Temperature 2023-12-17 14:28:00.000 98.5 [degF] Temperature 2023-12-10 15:22:00.000 97.9 [degF] Temperature 2023-12-10 11:37:00.000 98.4 [degF] Temperature 2023-12-04 20:50:00.000 97.2 [degF] Temperature 2023-11-29 13:12:00.000 99.8 [degF] BMI (%) 2023-11-29 13:12:00.000 15 kg/m2 Height 2023-11-29 13:12:00.000 74 [in_us] Pulse 2024-01-20 12:16:00.000 106 /min Pulse 2024-01-13 13:42:00.000 100 /min Pulse 2024-01-07 10:53:00.000 111 /min Pulse 2024-01-05 10:05:00.000 100 /min Pulse 2023-12-31 12:29:00.000 98 /min Pulse 2023-12-24 11:05:00.000 100 /min Pulse 2023-12-22 10:34:00.000 99 /min Pulse 2023-12-17 14:28:00.000 100 /min Pulse 2023-12-10 15:22:00.000 110 /min Pulse 2023-12-10 11:37:00.000 98 /min Pulse 2023-12-04 20:50:00.000 72 /min Pulse 2023-11-29 13:12:00.000 88 /min O2 Saturation (%) 2024-01-20 12:16:00.000 100 % O2 Saturation (%) 2024-01-13 13:42:00.000 99 % O2 Saturation (%) 2024-01-05 10:05:00.000 98 % O2 Saturation (%) 2023-12-31 12:29:00.000 99 % O2 Saturation (%) 2023-12-22 10:34:00.000 99 % O2 Saturation (%) 2023-12-17 14:28:00.000 99 % O2 Saturation (%) 2023-12-04 20:51:00.000 96 % O2 Saturation (%) 2023-11-29 13:14:00.000 96 % Respirations 2024-01-20 12:16:00.000 18 /min Respirations 2024-01-13 13:42:00.000 18 /min Respirations 2024-01-07 10:53:00.000 18 /min Respirations 2024-01-05 10:05:00.000 18 /min Respirations 2023-12-31 12:29:00.000 18 /min Respirations 2023-12-24 11:05:00.000 18 /min Respirations 2023-12-22 10:34:00.000 18 /min Respirations 2023-12-17 14:28:00.000 18 /min Respirations 2023-12-10 15:22:00.000 18 /min Respirations 2023-12-10 11:37:00.000 18 /min Respirations 2023-12-04 20:50:00.000 18 /min Respirations 2023-11-29 13:12:00.000 18 /min Weight (lbs) 2023-11-29 13:12:00.000 118 [lb_av] Systolic Blood Pressure 2024-01-20 12:16:00.000 140 mm [Hg] Systolic Blood Pressure 2024-01-13 13:42:00.000 128 mm [Hg] Systolic Blood Pressure 2024-01-07 10:53:00.000 140 mm [Hg] Systolic Blood Pressure 2024-01-05 10:05:00.000 148 mm [Hg] Systolic Blood Pressure 2023-12-31 12:29:00.000 128 mm [Hg] Systolic Blood Pressure 2023-12-24 11:05:00.000 132 mm [Hg] Systolic Blood Pressure 2023-12-22 10:34:00.000 138 mm [Hg] Systolic Blood Pressure 2023-12-17 14:28:00.000 138 mm [Hg] Systolic Blood Pressure 2023-12-10 15:22:00.000 130 mm [Hg] Systolic Blood Pressure 2023-12-10 11:37:00.000 140 mm [Hg] Systolic Blood Pressure 2023-12-04 20:50:00.000 120 mm [Hg] Systolic Blood Pressure 2023-11-29 13:12:00.000 140 mm [Hg] Diastolic Blood Pressure 2024-01-20 12:16:00.000 82 mm [Hg] Diastolic Blood Pressure 2024-01-13 13:42:00.000 70 mm [Hg] Diastolic Blood Pressure 2024-01-07 10:53:00.000 74 mm [Hg] Diastolic Blood Pressure 2024-01-05 10:05:00.000 80 mm [Hg] Diastolic Blood Pressure 2023-12-31 12:29:00.000 64 mm [Hg] Diastolic Blood Pressure 2023-12-24 11:05:00.000 70 mm [Hg] Diastolic Blood Pressure 2023-12-22 10:34:00.000 80 mm [Hg] Diastolic Blood Pressure 2023-12-17 14:28:00.000 78 mm [Hg] Diastolic Blood Pressure 2023-12-10 15:22:00.000 68 mm [Hg] Diastolic Blood Pressure 2023-12-10 11:37:00.000 70 mm [Hg] Diastolic Blood Pressure 2023-12-04 20:50:00.000 74 mm [Hg] Diastolic Blood Pressure 2023-11-29 13:12:00.000 68 mm [Hg] Plan of Treatment Planned Activity Planned Date Details Comments Future Scheduled Test RN TO OBSE RVE, ASSESS, EVALUATE, AND DEVELOP AN INDIVIDUALIZED PLAN OF CARE. AGENCY MAY ACCEPT ORDERS FROM CONSULTING PHYSICIANS . REGISTERED NURSETO OBSERVE AND ASSESS/LICENSED PRACTICAL NURSE TO OBSERVE FOR RISK FOR FALLS AND INSTRUCT IN FALL PREVENTION, HOME SAFETY, MEDICATION MANAGEMENT, INFECTION PREVENTION, AND NUTRITION MANAGEMENT. REGISTERED NURSE/LICENSED PRACTICAL NURSE MAY PERFORM O2 SATURATION LEVEL ON ADMISSION AND PRN FOR RN TO ASSESS/LOAD BLOCKER TO OBSERVE PATIENT, WITH NOTIFICATION TO THE PHYSICIAN IF SATURATION IS 90% IN THE ABSENCE OF MORE SPECIFIC PARAMETERS FROM THE PHYSICIAN. AGENCY MAY PERFORM A RESUMPTION OF CARE VISIT FOLLOWING ANY HOSPITAL ADMISSION. REGISTERED NURSE/LICENSED PRACTICAL NURSE TO MONITOR CO-MORBID CONDITIONS LISTED ON THE PLAN OF CARE AND ANY NEW CONDITIONS THAT PRESENT THEMSELVES DURING THIS EPISODE TO IDENTIFY CHANGES AND INTERVENE TO MINIMIZE COMPLICATIONS. [code = RN TO OBSERVE, ASSESS, EVALUATE, AND DEVELOP AN INDIVIDUALIZED PLAN OF CARE. AGENCY MAY ACCEPT ORDERS FROM CONSULTING PHYSICIANS . REGISTERED NURSETO OBSERVE AND ASSESS/LICENSED PRACTICAL NURSE TO OBSERVE FOR RISK FOR FALLS AND INSTRUCT IN FALL PREVENTION, HOME SAFETY, MEDICATION MANAGEMENT, INFECTION PREVENTION, AND NUTRITION MANAGEMENT. REGISTERED NURSE/LICENSED PRACTICAL NURSE MAY PERFORM O2 SATURATION LEVEL ON ADMISSION AND PRN FOR RN TO ASSESS/LOAD BLOCKER TO OBSERVE PATIENT, WITH NOTIFICATION TO THE PHYSICIAN IF SATURATION IS 90% IN THE ABSENCE OF MORE SPECIFIC PARAMETERS FROM THE PHYSICIAN. AGENCY MAY PERFORM A RESUMPTION OF CARE VISIT FOLLOWING ANY HOSPITAL ADMISSION. REGISTERED NURSE/LICENSED PRACTICAL NURSE TO MONITOR CO-MORBID CONDITIONS LISTED ON THE PLAN OF CARE AND ANY NEW CONDITIONS THAT PRESENT THEMSELVES DURING THIS EPISODE TO IDENTIFY CHANGES AND INTERVENE TO MINIMIZE COMPLICATIONS.] Future Scheduled Test RISK FOR H OSPITALIZATION; REGISTERED NURSE TO ASSESS /TEACH, LICENSED PRACTICAL NURSE TO OBSERVE/TEACH CAREGIVER ON RISK FOR HOSPITALIZATION/EMERGENCY ROOM VISITS, TEACH SIGNS AND SYMPTOMS THAT PUT PATIENT AT RISK, WHEN TO NOTIFY NURSE/PHYSICIAN OF COMPLICATIONS/DECLINE, AND WHEN TO CALL 911. [code = RISK FOR HOSPITALIZATION; REGISTERED NURSE TO ASSESS /TEACH, LICENSED PRACTICAL NURSE TO OBSERVE/TEACH CAREGIVER ON RISK FOR HOSPITALIZATION/EMERGENCY ROOM VISITS, TEACH SIGNS AND SYMPTOMS THAT PUT PATIENT AT RISK, WHEN TO NOTIFY NURSE/PHYSICIAN OF COMPLICATIONS/DECLINE, AND WHEN TO CALL 911.] Future Scheduled Test MEDICATION MANAGEMENT; REGISTERED NURSE/LICENSED PRACTICAL NURSE TO REVIEW MEDICATIONS FOR INTERACTIONS, EFFECTIVENESS OF DRUG THERAPY, AND SIGNS/SYMPTOMS OF ADVERSE REACTIONS. MAY INSTRUCT AND REINFORCE MEDICATION TEACHING RELATED TO THE USE OF MEDICATIONS, DOSAGE, FREQUENCY, PURPOSE, SIDE EFFECTS, AND TO REPORT COMPLICATIONS. [code = MEDICATION MANAGEMENT; REGISTERED NURSE/LICENSED PRACTICAL NURSE TO REVIEW MEDICATIONS FOR INTERACTIONS, EFFECTIVENESS OF DRUG THERAPY, AND SIGNS/SYMPTOMS OF ADVERSE REACTIONS. MAY INSTRUCT AND REINFORCE MEDICATION TEACHING RELATED TO THE USE OF MEDICATIONS, DOSAGE, FREQUENCY, PURPOSE, SIDE EFFECTS, AND TO REPORT COMPLICATIONS.] Future Scheduled Test CARDIOVASC ULAR SYSTEM; REGISTERED NURSE TO ASSESS /TEACH, LICENSED PRACTICAL NURSE TO OBSERVE/TEACH RELATED TO ALTERED CARDIOVASCULAR STATUS TO MINIMIZE COMPLICATIONS AND REDUCE HOSPITALIZATION. [code = CARDIOVASCULAR SYSTEM; REGISTERED NURSE TO ASSESS /TEACH, LICENSED PRACTICAL NURSE TO OBSERVE/TEACH RELATED TO ALTERED CARDIOVASCULAR STATUS TO MINIMIZE COMPLICATIONS AND REDUCE HOSPITALIZATION. ] Future Scheduled Test PAIN MANAG EMENT; REGISTERED NURSE TO ASSESS AND TEACH/LICENSED PRACTICAL NURSE TO OBSERVE AND TEACH AND PROVIDE EDUCATION ON PAIN MANAGEMENT TECHNIQUES. [code = PAIN MANAGEMENT; REGISTERED NURSE TO ASSESS AND TEACH/LICENSED PRACTICAL NURSE TO OBSERVE AND TEACH AND PROVIDE EDUCATION ON PAIN MANAGEMENT TECHNIQUES.] Future Scheduled Test GENITOURIN TREVOR MANAGEMENT; REGISTERED NURSE TO ASSESS AND TEACH/LICENSED PRACTICAL NURSE TO OBSERVE AND TEACH RELATED TO ALTERED GENITOURINARY STATUS TO MINIMIZE COMPLICATIONS AND REDUCE HOSPITALIZATION. [code = GENITOURINARY MANAGEMENT; REGISTERED NURSE TO ASSESS AND TEACH/LICENSED PRACTICAL NURSE TO OBSERVE AND TEACH RELATED TO ALTERED GENITOURINARY STATUS TO MINIMIZE COMPLICATIONS AND REDUCE HOSPITALIZATION.] Future Scheduled Test ANEMIA MAN AGEMENT; REGISTERED NURSE TO ASSESS AND TEACH/LICENSED PRACTICAL NURSE TO OBSERVE AND TEACH AND PROVIDE EDUCATION ON ANEMIA. [code = ANEMIA MANAGEMENT; REGISTERED NURSE TO ASSESS AND TEACH/LICENSED PRACTICAL NURSE TO OBSERVE AND TEACH AND PROVIDE EDUCATION ON ANEMIA.] Future Scheduled Test REGISTERED NURSE TO ASSESS AND TEACH/LICENSED PRACTICAL NURSE TO OBSERVE AND TEACH FOR SIGNS AND SYMPTOMS OF SEPSIS AND/OR POST-SEPSIS SYNDROME AND INTERVENE TO MINIMIZE COMPLICATIONS. REGISTERED NURSE/LICENSED PRACTICAL TO PROVIDE SKILLED TEACHING TO PATIENT/CAREGIVER ON SEPSIS AND SELF-MANAGEMENT TECHNIQUES. REGISTERED NURSE/LICENSED PRACTICAL NURSE TO MONITOR PATIENT/CAREGIVER ADHERENCE TO MONITOR AND RECORD VITAL SIGNS INCLUDING TEMPERATURE, HEART RATE, RESPIRATIONS, AND SYMPTOMS. REGISTERED NURSE/LICENSED PRACTICAL NURSE TO PROVIDE HALF-WAY TO ACCOMPLISH THE PATIENTS PERSONAL GOAL. [code = REGISTERED NURSE TO ASSESS AND TEACH/LICENSED PRACTICAL NURSE TO OBSERVE AND TEACH FOR SIGNS AND SYMPTOMS OF SEPSIS AND/OR POST-SEPSIS SYNDROME AND INTERVENE TO MINIMIZE COMPLICATIONS. REGISTERED NURSE/LICENSED PRACTICAL TO PROVIDE SKILLED TEACHING TO PATIENT/CAREGIVER ON SEPSIS AND SELF-MANAGEMENT TECHNIQUES. REGISTERED NURSE/LICENSED PRACTICAL NURSE TO MONITOR PATIENT/CAREGIVER ADHERENCE TO MONITOR AND RECORD VITAL SIGNS INCLUDING TEMPERATURE, HEART RATE, RESPIRATIONS, AND SYMPTOMS. REGISTERED NURSE/LICENSED PRACTICAL NURSE TO PROVIDE HALF-WAY TO ACCOMPLISH THE PATIENTS PERSONAL GOAL.] Future Scheduled Test FALL REDUC TION MANAGEMENT; REGISTERED NURSE TO ASSESS AND TEACH/LICENSED PRACTICAL NURSE TO OBSERVE AND TEACH ON EDUCATION AND INTERVENTION TO IDENTIFY FALL RISK FACTORS SUCH MEDICATIONS THAT MAY CAUSE DIZZINESS, CHRONIC DISEASES, PSYCHOLOGICAL FACTORS, AND EMPOWER/EDUCATE PATIENT/CAREGIVER TO MINIMIZE FALL RISK. [code = FALL REDUCTION MANAGEMENT; REGISTERED NURSE TO ASSESS AND TEACH/LICENSED PRACTICAL NURSE TO OBSERVE AND TEACH ON EDUCATION AND INTERVENTION TO IDENTIFY FALL RISK FACTORS SUCH MEDICATIONS THAT MAY CAUSE DIZZINESS, CHRONIC DISEASES, PSYCHOLOGICAL FACTORS, AND EMPOWER/EDUCATE PATIENT/CAREGIVER TO MINIMIZE FALL RISK.] Future Scheduled Test PHYSICAL T HERAPIST TO EVALUATE FOR STRENGTH TRAINING AND MOBILITY [code = PHYSICAL THERAPIST TO EVALUATE FOR STRENGTH TRAINING AND MOBILITY ] Future Scheduled Test OCCUPATION AL THERAPIST TO EVALUATE FOR ASSIST WITH ADL'S AND HOME SAFETY [code = OCCUPATIONAL THERAPIST TO EVALUATE FOR ASSIST WITH ADL'S AND HOME SAFETY ] Goal 2024-01-26 Patient Goal - T O REMAIN STABLE, AND RELIEF OF THE KIDEY STONE Goal Provider Goal - A PLAN OF CARE WILL BE ESTABLISHED THAT MEETS THE PATIENTS NEEDS. PATIENT WILL DEMONSTRATE OXYGEN SATURATION WITHIN NORMAL LIMITS OR PATIENTS OPTIMAL LEVEL ESTABLISHED BY THE PHYSICIAN THROUGHOUT CARE. CHANGES TO CO-MORBID CONDITIONS AND ANY NEW CONDITIONS WILL BE IDENTIFIED AND REPORTED TO THE PHYSICIAN. Goal Provider Goal - PATIENT/CAREGIVER WILL VERBALIZE UNDERSTANDING OF SIGNS AND SYMPTOMS THAT PUT THE PATIENT AT RISK FOR HOSPITALIZATION /EMERGENCY ROOM VISITS, WHEN TO NOTIFY NURSE/PHYSICIAN OF COMPLICATIONS/DECLINE AND WHEN TO CALL 911. Goal Provider Goal - PATIENT/CAREGIVER TO VERBALIZE, AND CONSISTENTLY DEMONSTRATE EFFECTIVE, SAFE MANAGEMENT OF MEDICATION INCLUDING KNOWLEDGE OF EFFECTIVENESS, POTENTIAL SIDE EFFECTS AND DRUG REACTIONS AND WHEN TO CONTACT THE APPROPRIATE CARE PROVIDER. /CAREGIVER WILL BE ABLE TO VERBALIZE UNDERSTANDING OF MEDICATION REGIMEN AND ACCURATELY TAKE MEDICATIONS PRESCRIBED WITHOUT ADVERSE EFFECTS BY EOE. Goal Provider Goal - PATIENT / CAREGIVER WILL VERBALIZE/DEMONSTRATE UNDERSTANDING OF MEASURES TO MANAGE ALTERED CARDIOVASCULAR STATUS BY EOE. Goal Provider Goal - PATIENT/CAREGIVER WILL VERBALIZE / DEMONSTRATE UNDERSTANDING OF PAIN CONTROL MEASURES BY EOE. Goal Provider Goal - PATIENT/CAREGIVER WILL VERBALIZE/DEMONSTRATE UNDERSTANDING OF MEASURES TO MANAGE ALTERED GENITOURINARY STATUS R/T KIDNEY STONE BY END OF EPISODE. Goal Provider Goal - PATIENT/CAREGIVER WILL VERBALIZE UNDERSTANDING OF CARE AND MANAGEMENT OF ANEMIA BY END OF EPISODE. Goal Provider Goal - SIGNS OF SEPSIS WILL BE IDENTIFIED PROMPTLY, AND INTERVENTIONS INITIATED TO MINIMIZE SEVERITY AND RISK OF HOSPITALIZATION. POST-SEPSIS SYNDROME INTERVENTIONS WILL BE REVIEWED WITH THE PATIENT/CAREGIVER, IF APPLICABLE. PATIENT / CAREGIVER WILL VERBALIZE/DEMONSTRATE AN ABILITY TO ADHERE TO SELF-MANAGEMENT AT DISCHARGE. Goal Provider Goal - PATIENT/CAREGIVER ABLE TO IDENTIFY FALL RISK FACTORS AND IMPLEMENT STRATEGIES TO MINIMIZE FALL RISK. /CAREGIVER WILL VERBALIZE/DEMONSTRATE AN ABILITY TO ADHERE TO FALL REDUCTION SELF MANAGEMENT AND LIFE-STYLE CHANGES AT DISCHARGE. PERSONAL GOAL(S) STATED BY /CAREGIVER WILL BE MET BY END OF EPISODE Reason for Visit MAXIMUM ASSIST WITH TRANSFER/AMBULATION/ADLS Encounters Start Date/Time End Date/Time Encounter Type Admission Type Attending [facility] Care Department Encounter ID Discharge Date Discharge Status Discharge Condition Discharge Reason Percent Goals Met 2023-11-29 00:00:00 2024-01-26 00:00:00 Outpatient [facility] [id number] 2024-01-26 00:00:00 DISCHARGED /TRANSFERR ED TO A SHORT-TERM [facility] FOR INPATIENT CARE MAXIMUM ASSIST WITH TRANSFER/A MBULATION/ ADLS ONLY - TRANSFER TO HOSPITAL 21.62
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
== END 2024-08-18 09:05 | disposition home or self-care (01) ==
LOC: HO.HMCC 08:23
PROVIDERS: PCP Internal Medicine; Visit Provider Internal Medicine
DX: M06.9 Rheumatoid arthritis, unspecified (principal); L89.302 Pressure ulcer of unspecified buttock, stage 2; F33.1 Major depressive disorder, recurrent, moderate; E46 Unspecified protein-calorie malnutrition; R62.7 Adult failure to thrive; D64.9 Anemia, unspecified; E88.09 Other disorders of plasma-protein metabolism, not elsewhere classified; R26.2 Difficulty in walking, not elsewhere classified; R52 Pain, unspecified; E78.9 Disorder of lipoprotein metabolism, unspecified

== ENCOUNTER → 2024-08-18 08:23 | Outpatient (BNVA) | payer MEDICARE, MEDICAID, SELFPAY | PROVIDERS: PCP Internal Medicine; Visit Provider Internal Medicine | DX: R62.7 Adult failure to thrive (principal); L89.302 Pressure ulcer of unspecified buttock, stage 2; D64.9 Anemia, unspecified; M06.9 Rheumatoid arthritis, unspecified; F33.1 Major depressive disorder, recurrent, moderate; R26.2 Difficulty in walking, not elsewhere classified; R52 Pain, unspecified; E78.9 Disorder of lipoprotein metabolism, unspecified; E88.09 Other disorders of plasma-protein metabolism, not elsewhere classified; E46 Unspecified protein-calorie malnutrition | CPT/HCPCS: 96127 ==

== ENCOUNTER 2024-09-22 08:14 | Outpatient (AMB) | payer MEDICARE, MEDICAID, SELFPAY ==
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
--- OUTSIDE RECORDS SUMMARY | 2024-09-22 08:20 | XMS_ITS | Clinical Summary ---
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 Name Role Phone Katelyn Mccoy MD Primary Care Provider [phone] Social History Tobacco Use Types Packs/Day Years Used Date Smoking Tobacco: Never Assessed Sex and Gender Information Value Date Recorded Sex Assigned at Not on file Legal Sex Male 11:30 PM EST Gender Identity Not on file Sexual Orientation Not on file Plan of Treatment Health Maintenance Due Date Last Done Comments Pneumococcal Vaccine: 50+ Years (1 of 1 - PCV) 2008 Zoster Vaccines (1 of 2) 2008 DTaP,Tdap,and Td Vaccines (2 - Td or Tdap) 06/20/2021 06/20/2011 Abdominal Aortic Aneurysm (AAA) Screen 07/06/2022 Cholesterol Screening (Lipid Panel) 07/06/2022 Colorectal Cancer Screening: Colonoscopy 07/06/2022 Depression Screening 07/06/2022 Hepatitis C Screening 07/06/2022 Social Influencers of Health Screening 07/06/2022 Falls Risk Assessment 2023 COVID-19 Vaccine ( season) 2024 08/06/2021, 12/17/2020, 11/26/2020 Hypertension/CHF/CAD Annual BMP Blood Test 07/21/2024 RSV Immunization Patients 60+ Years Old (1 - 1-dose 75+ series) 2033 Influenza Vaccine Completed 07/03/2024, , 08/31/2019, Additional history exists HIB Vaccines Aged Out No longer eligi ble based on patient's age to complete this topic HPV Vaccines Aged Out No longer eligi ble based on patient's age to complete this topic Hepatitis A Vaccines Aged Out No long er eligible based on patient's age to complete this topic Hepatitis B Vaccines Aged Out No long er eligible based on patient's age to complete this topic IPV Vaccines Aged Out No longer eligi ble based on patient's age to complete this topic MMR Vaccines Aged Out No longer eligi ble based on patient's age to complete this topic Meningococcal ACWY Vaccine Aged Out N o longer eligible based on patient's age to complete this topic Meningococcal B Vacine Aged Out No lo nger eligible based on patient's age to complete this topic RSV Immunization Patients Under 20 months Aged Out No longer eligible based on patient's age to complete this topic Varicella Vaccines Aged Out No longer eligible based on patient's age to complete this topic Advance Directives Documents on File Type Date Recorded Patient Obstetrics Nurse Expl anation Health Care Decision (hx) 07/13/2023 PHOENIX MARTINEZ DIRECTIVE Care Teams Bar Tacker Sewing Machine Relationship Specialty Start Date End Date Katelyn Mccoy MD [address] [place] [address] PCP - General Internal Medicine 07/01/21
--- NOTE | 2024-09-22 08:27 | A.OFFPC_ITS ---
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 ] disposable gloves Large gloves use as directed ferrous sulfate 325 mg PO BID food supplemt, lactose-reduced (Ensure Original oral liquid) 4 ea PO DAILY [Gait belt As directed] [Hinged knee brace As directed] Knee brace As directed leflunomide 20 mg PO DAILY metoprolol tartrate 100 mg PO BID omeprazole 20 mg PO BID [Raised toilet seat with arms As directed] sennosides (Senokot) 8.6 mg PO BID sertraline 25 mg PO DAILY [Shower bench As directed] simvastatin 40 mg PO BEDTIME [slide transfer board As directed] tramadol 50 mg PO BID PRN 30 days Transfer Bench As directed [Transfer bench As directed] [Washable bed pads Use As directed] [Wheelchair As directed] [wheelchair As directed] Tobacco use date assessed: 09/22/24 Fall risk assessment: 1 Fall in past year Last assessed Fall Risk: 09/22/24 Dental Screening Dental Screen Date: 09/22/24 Did you have a dental visit in the last 12 months?: Yes Did you have a dental problem in the last 6 months where you did not have access to dental care?: No Was dental information given to patient?: Patient has dentist HPI HDF ~ Post hospital discharge FU HPI Details - The patient is a 64-year-old male pres ented to [facility] with hematuria.on sep 10 of this year - His medical history includes essential hypertension, stroke, chronic anemia, dementia, chronic osteomyelitis, malnutrition, mood disorder, multiple joint arthritis, rheumatoid arthritis, and hypothyroidism. - Hematuria was noted post-catheter wilkinson ge by [facility] - Laboratory results revealed anemia wit h hemoglobin at 8.6 and elevated troponin. - Bacteremia identified through blood cu ltures demonstrated Anterococcus Faecalis and Proteus Mirabilis. - Pt was treated with Miropenem 1g every 8 hours for bacteremia, to be administered for 2 weeks until September 24, 2024. Patient also have multiple bed sores for that he goes to [facility] via ambulance once a week [facility] he has OT twice a week, goal is for him to transfer from bed to chair [facility] comes over three times a week he had labs drawn 2 days ago and we will recheck them again in one week was there during visit, patient is doing better and is back to his base line Problem List - Essential Hypertension - Stroke - Chronic Anemia - Dementia - Chronic Osteomyelitis - Malnutrition - Mood Disorder - Multiple Joint Arthritis - Rheumatoid Arthritis - Hypothyroidism - Hematuria - Bacteremia with Anterococcus Faecalis and Proteus Mirabilis Diagnostic results - Hemoglobin: 8.6 g/dL - Platelet count: 354 x 10^9/L - Blood cultures: Positive for Anterococ cus Faecalis and Proteus Mirabilis - EKG: Heart rate of 118 bpm, normal rhy thm with no ST elevation Patient Instructions - Complete the prescribed course of Pritesh penem through PICC line by September 24, 2024. - Weekly monitoring of complete blood co unt (CBC) and metabolic profile. Review of Systems General: No fever no chills neurological: No headaches no dizziness ear nose throat: No sore throat no hearing difficulty no ear pain cardiovascular: No syncope, no chest pain, gastrointestinal: No nausea vomiting or diarrhea endocrine: No polyuria polydipsia no heat intolerance genitourinary: No dysuria PFSH Medical History Knee arthropathy Vitamin D deficiency Helicobacter pylori (H. pylori) Tubular adenoma Dysphagia Non-toxic multinodular goiter Other and unspecified hyperlipidemia Cerebrovascular accident Coronary artery disease History of stroke Lipid disorder Hypertension, essential Surgical History Hx of thyroidectomy Hx of ultrasound guided needle biopsy History of esophagogastroduodenoscopy (EGD) History of colonoscopy Family History Father Dementia Mother HTN (hypertension) Brother Mental health disorder Substance use disorder Social History Household Members: Spouse Housing: Condominium Alcohol intake: never Comment: right sided weakness Patient Tobacco Use Status: Never used Tobacco e-Cigarette/Vaping Use: Never Used Second Hand Smoke Exposure: Yes ( smokes) Advance Directives Date on File: 12/11/22 service: No Current occupational status: disabled Cognitive needs: No Hearing needs: No Vision needs: No Questionnaire Thrive Questionnaire Date Thrive assessed: 08/18/24 MAGO-7 AMB Questionnaire MAGO-7 Date MAGO - 7 assessed: 08/18/24 Source: Developed by Drs. Chapin Aguilar, Karen Camargo, Tunde Lyles and colleagues, with an educational lu from [employer]. Physical exam (Primary Care) Tobacco/Smoking Status: Tobacco use Status Tobacco use date assessed 09/22/24 09/22/24 08:30 Patient Tobacco Use Status Never used Tobacco 09/22/24 08:30 e-Cigarette/Vaping Use Never Used 09/22/24 08:30 Thrive Assessment: Date of Thrive Assessment Date Thrive assessed 08/18/24 09/22/24 08:30 Telehealth Telehealth Telehealth Platform: Telephone Location of provider rendering services: practice address Location of patient: address on file Patient Identification confirmed using: Name, : Yes Telehealth method: video Patient verbally consented to treatment: Yes Patient verbally consented to billing insurance company: Yes Patient informed of any privacy concerns related to visit: Yes Minutes spent on Phone/Video with Pt.: 30 Coding Level of Care Code Tele Est Pt Level 4 (13233) Complex EM visit Add On G2211 Diagnoses Iron deficiency anemia due to chronic blood loss D50.0 Anemia type: iron deficiency Iron deficiency anemia type: chronic blood loss Sepsis, due to unspecified organism, unspecified whether acute organ dysfunction present A41.9 Sepsis type: sepsis due to unspecified organism Sepsis acute organ dysfunction status: unspecified Gross hematuria R31.0 Hematuria type: gross Pressure injury of buttock, stage 2, unspecified laterality L89.302 Pressure injury stage: stage 2 Laterality: unspecified laterality Failure to thrive syndrome, adult R62.7 Hospital discharge follow-up Z09 Hypertension, essential I10 History of stroke Z86.73 Rheumatoid arthritis of other site, unspecified whether rheumatoid factor present M06.9 Rheumatoid arthritis location: other site Rheumatoid factor presence: unspecified presence Hypoalbuminemia due to protein-calorie malnutrition E88.09; E46 Assessment & Plan Assessment & Plan (1) Anemia: Code(s): D64.9 - Anemia, unspecified Category: Medical Qualifiers: Anemia type: iron deficiency Iron deficiency anemia type: chronic blood loss Qualified Code(s): D50.0 - Iron deficiency anemia secondary to blood loss (chronic) (2) Sepsis: Code(s): A41.9 - Sepsis, unspecified organism Category: Medical Qualifiers: Sepsis type: sepsis due to unspecified organism Sepsis acute organ dysfunction status: unspecified Qualified Code(s): A41.9 - Sepsis, unspecified organism (3) Blood in urine: Code(s): R31.9 - Hematuria, unspecified Category: Medical Qualifiers: Hematuria type: gross Qualified Code(s): R31.0 - Gross hematuria (4) Pressure sore on buttocks: Code(s): L89.309 - Pressure ulcer of unspecified buttock, unspecified stage Category: Medical Qualifiers: Pressure injury stage: stage 2 Laterality: unspecified laterality Qualified Code(s): L89.302 - Pressure ulcer of unspecified buttock, stage 2 (5) Failure to thrive syndrome, adult: Code(s): R62.7 - Adult failure to thrive Category: Medical (6) Hospital discharge follow-up: Code(s): Z09 - Encounter for follow-up examination after completed treatment for conditions other than malignant neoplasm Category: Medical (7) Hypertension, essential: Code(s): I10 - Essential (primary) hypertension Category: Medical (8) History of stroke: Code(s): Z86.73 - Personal history of transient ischemic attack (TIA), and cerebral infarction without residual deficits Category: Medical (9) Rheumatoid arthritis: Code(s): M06.9 - Rheumatoid arthritis, unspecified Category: Medical Qualifiers: Rheumatoid arthritis location: other site Rheumatoid factor presence: unspecified presence Qualified Code(s): M06.9 - Rheumatoid arthritis, unspecified (10) Hypoalbuminemia due to protein-calorie malnutrition: Code(s): E88.09 - Other disorders of plasma-protein metabolism, not elsewhere classified; E46 - Unspecified protein-calorie malnutrition Category: Medical Plan - The patient is a 64-year-old male presented to [facility] ER with hematuria.on sep 10 of this year - His medical history includes essential hypertension, stroke, chronic anemia, dementia, chronic osteomyelitis, malnutrition, mood disorder, multiple joint arthritis, rheumatoid arthritis, and hypothyroidism. - Hematuria was noted post-catheter change by [facility] - Laboratory results revealed anemia with hemoglobin at 8.6 and elevated troponin. - Bacteremia identified through blood cultures demonstrated Anterococcus Faecalis and Proteus Mirabilis. - Pt was treated with Miropenem 1g every 8 hours for bacteremia, to be administered for 2 weeks until September 24, 2024. Patient also have multiple bed sores for that he goes to [facility] via ambulance once a week [facility] he has OT twice a week, goal is for him to transfer from bed to chair [facility] comes over three times a week he had labs drawn 2 days ago and we will recheck them again in one week was there during visit, patient is doing better and is back to his base line Problem List - Essential Hypertension - Stroke - Chronic Anemia - Dementia - Chronic Osteomyelitis - Malnutrition - Mood Disorder - Multiple Joint Arthritis - Rheumatoid Arthritis - Hypothyroidism - Hematuria - Bacteremia with Anterococcus Faecalis and Proteus Mirabilis Diagnostic results - Hemoglobin: 8.6 g/dL - Platelet count: 354 x 10^9/L - Blood cultures: Positive for Anterococcus Faecalis and Proteus Mirabilis - EKG: Heart rate of 118 bpm, normal rhythm with no ST elevation Patient Instructions - Complete the prescribed course of Miropenem through PICC line by September 24, 2024. - Weekly monitoring of complete blood count (CBC) and metabolic profile. Orders: Orders Hemoglobin 1 Month D64.9 - Anemia, unspecified Complete Blood Count Auto Diff 7 Days D64.9 - Anemia, unspecified Hemoglobin 2 Months D64.9 - Anemia, unspecified
== END 2024-09-22 08:48 | disposition home or self-care (01) ==
LOC: HO.HMCC 08:14
PROVIDERS: PCP Internal Medicine; Visit Provider Internal Medicine
DX: D50.0 Iron deficiency anemia secondary to blood loss (chronic) (principal); A41.9 Sepsis, unspecified organism; L89.302 Pressure ulcer of unspecified buttock, stage 2; M06.9 Rheumatoid arthritis, unspecified; E46 Unspecified protein-calorie malnutrition; R31.0 Gross hematuria; R62.7 Adult failure to thrive; Z09 Encounter for follow-up examination after completed treatment for conditions other than malignant neoplasm; I10 Essential (primary) hypertension; Z86.73 Personal history of transient ischemic attack (TIA), and cerebral infarction without residual deficits; E88.09 Other disorders of plasma-protein metabolism, not elsewhere classified

== ENCOUNTER → 2024-09-22 08:14 | Outpatient (BNVA) | payer MEDICARE, MEDICAID, SELFPAY | PROVIDERS: PCP Internal Medicine; Visit Provider Internal Medicine ==

== ENCOUNTER → 2024-12-09 23:59 | Outpatient (BNV) | payer MEDICARE, MEDICAID, SELFPAY | PROVIDERS: PCP Internal Medicine; Visit Provider Internal Medicine | DX: R13.10 Dysphagia, unspecified (principal); D64.9 Anemia, unspecified; R15.9 Full incontinence of feces | CPT/HCPCS: G0179 ==

== ENCOUNTER 2025-03-09 08:21 | Outpatient (AMB) | payer MEDICARE, MEDICAID, SELFPAY ==
--- OUTSIDE RECORDS SUMMARY | 2025-03-09 08:27 | XMS_ITS | Clinical Summary ---
Author Organization [facility] Address [address] [facility] [address] [place] [address] Phone Care Team Providers Care Rod Hanger Name Role Phone Unavailable Primary Care Provider [...] 02/02/2023 Active Cholecalciferol (Vitamin D3) 1.25 MG (28991 UT) capsule TAKE 1 CAPSULE BY MOUTH [...] in head and neck 007 03/20/2023 Immunizations Immunization Administration Dates Next Due Influenza, Unspecified 09/25/2015,05/28/2012, [...] Colorectal Cancer Screening: Sigmoidoscopy 2007 Pneumococcal Vaccine: 50+ Years (1 of 1 - PCV) 2008 Influenza Vaccine (#1) 2025 6, 05/28/2012, 06/20/2011 Hepatitis B Vaccine Aged Out No longe r eligible based on patient's age to complete this topic Insurance Medicare Medicaid [place]
--- OUTSIDE RECORDS SUMMARY | 2025-03-09 08:27 | XMS_ITS | Clinical Summary ---
Author Organization [facility] ity Address [address] [place] [address] Care Team Providers Care Monotyper Name Role Phone Katelyn Mccoy MD Primary Care Provider [phone] Social History Tobacco Use Types Packs/Day Years [...] Panel) 07/06/2022 Colorectal Cancer Screening: Colonoscopy 07/06/2022 Hepatitis C Screening 07/06/2022 Social Influencers of Health Screening 07/06/2022 Falls Risk Assessment 2023 COVID-19 Vaccine ( season) 2024 08/06/2021, 12/17/2020, 11/26/2020 Hypertension/CHF/CAD Annual BMP Blood Test 07/21/2024 Depression Screening 08/03/2024 Influenza Vaccine (#1) 2025 , 06/05/2021, 08/31/2019, Additional history exists RSV Immunization Adult Patients (1 - 1-dose 75+ series) 2033 HIB Vaccines Aged Out No longer eligi [...] age to complete this topic Meningococcal B Vaccine Aged Out No l onger eligible based on patient's age to complete this topic RSV Immunization Patients Under 20 months Aged Out No longer eligible based on patient's age to complete this topic Varicella Vaccines Aged Out No longer eligible based on patient's age to complete this topic Advance Directives Documents on File Type Date Recorded Patient Brazing Machine Feeder Expl anation Health Care Decision (hx) 07/13/2023 PHOENIX MARTINEZ DIRECTIVE Care Teams Monotyper Relationship Specialty Start Date End Date Katelyn Mccoy MD [address] [place] [address] PCP - General Internal Medicine 07/01/21
--- NOTE | 2025-03-09 08:40 | MHC.PC.OV ---
Intake Visit Reasons: follow up -medication management Allergies No Known Allergies Allergy (Verified 09/22/24 08:27) Medication List - Last Reconciled 03/09/25 by Katelyn Mccoy MD [Adjustable pressure release mattress As directed] amlodipine 10 mg PO DAILY 90 days ascorbic acid (vitamin C) (Vitamin C) 500 mg PO BID [bedside table As directed] [Boost supplement 1 boost supplement three times per day NS] cane As directed cholecalciferol (vitamin D3) 25 mcg PO DAILY 90 days cyanocobalamin (vitamin B-12) 1,000 mcg PO DAILY [Disposable brief Use for episodes of bowel incontinence. ] disposable gloves Large gloves use as directed ferrous sulfate 325 mg PO BID food supplemt, lactose-reduced (Ensure Original oral liquid) 4 ea PO DAILY [Gait belt As directed] [Hinged knee brace As directed] Knee brace As directed leflunomide 20 mg PO DAILY metoprolol tartrate 100 mg PO BID omeprazole 20 mg PO BID [Raised toilet seat with arms As directed] sennosides (Senokot) 8.6 mg PO BID sertraline 25 mg PO DAILY [Shower bench As directed] simvastatin 40 mg PO BEDTIME [slide transfer board As directed] tramadol 50 mg PO BID PRN 30 days Transfer Bench As directed [Transfer bench As directed] [Washable bed pads Use As directed] [Wheelchair As directed] [wheelchair As directed] Tobacco use date assessed: 09/22/24 Dental Screening Dental Screen Date: 09/22/24 HPI follow up -medication management HPI Details Chief Complaint on going care follow up for multiple medical problem History The patient is a 64-year-old male presenting with management and follow-up for multiple chronic conditions. Hypertension: - Initial mention of elevated blood pressure of 160/83 when the patient is experiencing anxiety or has missed medication doses. - Chronic elevation with blood pressure readings typically around 158-160 systolic. - No additional antihypertensive medications have been added , patient has been visiting ER frequently due to failiur to thrive and blood transfusions , he has not been seen physically in this clinic for months due to difficulty with transport as he is bed ridden and need ambulance for transport Rheumatoid Arthritis: - pain managed by a regimen of Tramadol and Tylenol.. Anemia: - Chronic than requires regular blood transfusions every couple of months. - Attributed to rheumatoid arthritis and other chronic conditions. Wound Care: - Chronic wound resulting in a sore on the scrotum, initially exacerbated by urinary catheter use. - Wound size has decreased significantly with ongoing debridement and wound care managed by visiting nurse services. Thromboembolism (Clot) & Anticoagulation: - Developed a clot in the left upper extremity, diagnosed using ultrasound at [facility] visit - Currently on Eliquis for a three-month duration to prevent further thromboembolic events. - Concerns over bleeding risks due to existing anemia and the use of Eliquis. Depression and Cognitive Deficit: - Chronic conditions affecting the patient's mental health and cognitive function. - take sertraline Medical History: - Chronic hypertension - Rheumatoid arthritis - Anemia requiring regular transfusions - Cognitive deficits - Depression - Hypothyroidism - History of thromboembolism - Bedbound with history of recurrent ER visits due to anemia Medications: - Tramadol, 50 mg twice daily for pain management associated with rheumatoid arthritis. - Tylenol for additional pain control and rheumatoid arthritis. - Amlodipine for hypertension management. - Simvastatin, reduced from 40 mg to 20 mg for hyperlipidemia. - Eliquis, 5 mg twice daily for anticoagulation post-thromboembolism. - Leflunomide 20 mg - Vit and iron supplment Social History: - Primary display artist is the patient's spouse. - Ambulatory limitations necessitate transport by ambulance, covered by [employer]. - Regular home visits by care aides and nurses for wound management and support. - Home mobility includes use of a wheelchair, indicating functional dependency. Problem List - Hypertension - Rheumatoid arthritis - Anemia - Cognitive deficits - Depression - Hypothyroidism - Thromboembolism - Chronic scrotal wound Diagnostic results - Labs: Pending blood test results done at home - Tests and Diagnostics: Clot in the left upper extremity discovered via ultrasound [place] [facility] - Managed in conjunction with wound clinic, urology, and regular home nursing support. - Coordination with [employer] for transportation coverage. Medication Management - Continuation of Eliquis for three months as previously recommended due to clot. - Adjustment of Simvastatin dose from 40 mg to 20 mg. - Tramadol regimen continued with consideration of pain levels, especially during physical therapy. Medical Decision Making Given the complexity of the patient's chronic conditions, ongoing management focuses on stable maintenance of blood pressure with available medications, preventing further thromboembolic events with a three-month course of Eliquis, and managing pain and rheumatoid arthritis symptoms with non-opioid and opioid analgesics. Surgical interventions are not currently applicable, given the patient?s bedbound status. The focus is on preventing wound progression and minimizing infection risk through diligent care management and coordination with home health services. Addressing anemia remains vital to prevent further complications due to the use of anticoagulants. The impact of rheumatoid arthritis on hematopoiesis underscores the need for regular monitoring and management of his transfusion schedule. Monitoring and management decisions are tailored to prevent exacerbations of chronic conditions while maintaining quality of life. Patient Instructions - Continue to take all prescribed medications as directed. - Monitor blood pressure regularly and report readings, especially checking when calm and relaxed. - Attend follow-up wound care appointments as scheduled. - Inform healthcare provider of any signs of bleeding or increased bruising. - Ensure mobility with assistance and continue physical therapy exercises as able. - Coordinate with care aides for assistance as needed. Review of Systems General: No fever no chills neurological: No headaches no dizziness ear nose throat: No sore throat no hearing difficulty no ear pain cardiovascular: No syncope, no chest pain, no palpitations gastrointestinal: No nausea vomiting or diarrhea PFSH Medical History Knee arthropathy Vitamin D deficiency Helicobacter pylori (H. pylori) Tubular adenoma Dysphagia Non-toxic multinodular goiter Other and unspecified hyperlipidemia Cerebrovascular accident Coronary artery disease History of stroke Lipid disorder Hypertension, essential Surgical History Hx of thyroidectomy Hx of ultrasound guided needle biopsy History of esophagogastroduodenoscopy (EGD) History of colonoscopy Family History Father Dementia Mother HTN (hypertension) Brother Mental health disorder Substance use disorder Social History Household Members: Spouse Housing: Condominium Alcohol intake: never Comment: right sided weakness Patient Tobacco Use Status: Never used Tobacco e-Cigarette/Vaping Use: Never Used Second Hand Smoke Exposure: Yes ( smokes) Advance Directives Date on File: 12/11/22 service: No Current occupational status: disabled Cognitive needs: No Hearing needs: No Vision needs: No Questionnaire Thrive Questionnaire Date Thrive assessed: 08/18/24 MAGO-7 AMB Questionnaire MAGO-7 Date MAGO - 7 assessed: 08/18/24 Source: Developed by Drs. Chapin Aguilar, Karen Camargo, Tunde Lyles and colleagues, with an educational lu from [employer]. Physical exam (Primary Care) Tobacco/Smoking Status: Tobacco use Status Tobacco use date assessed 09/22/24 03/09/25 08:48 Patient Tobacco Use Status Never used Tobacco 03/09/25 08:48 e-Cigarette/Vaping Use Never Used 03/09/25 08:48 Thrive Assessment: Date of Thrive Assessment Date Thrive assessed 08/18/24 03/09/25 08:48 Telehealth [facility] Location of [facility] services: practice address Location of patient: address on file Patient Identification confirmed using: Name, : Yes Telehealth method: video Patient verbally consented to treatment: Yes Patient verbally consented to billing insurance company: Yes Patient informed of any privacy concerns related to visit: Yes Coding Level of Care Code Tele Est Pt Level 5 (68824) Diagnoses Acute deep vein thrombosis (DVT) of brachial vein of left upper extremity I82.622 Affected thrombotic vein of extremity: brachial Chronicity: acute Failure to thrive syndrome, adult R62.7 Iron deficiency anemia due to chronic blood loss D50.0 Anemia type: iron deficiency Iron deficiency anemia type: chronic blood loss Hypertension, essential I10 Rheumatoid arthritis of other site, unspecified whether rheumatoid factor present M06.9 Rheumatoid arthritis location: other site Rheumatoid factor presence: unspecified presence Hypoalbuminemia due to protein-calorie malnutrition E88.09; E46 Pressure injury of buttock, stage 2, unspecified laterality L89.302 Laterality: unspecified laterality Pressure injury stage: stage 2 History of stroke Z86.73 Time Spent (min) 41 Comment reviewing chart / face to face with and patient/ coordination of care Assessment & Plan Assessment & Plan (1) Deep vein thrombosis (DVT) of left upper extremity: Code(s): I82.622 - Acute embolism and thrombosis of deep veins of left upper extremity Category: Medical Qualifiers: Affected thrombotic vein of extremity: brachial Chronicity: acute Qualified Code(s): I82.622 - Acute embolism and thrombosis of deep veins of left upper extremity (2) Failure to thrive syndrome, adult: Code(s): R62.7 - Adult failure to thrive Category: Medical (3) Anemia: Code(s): D64.9 - Anemia, unspecified Category: Medical Qualifiers: Anemia type: iron deficiency Iron deficiency anemia type: chronic blood loss Qualified Code(s): D50.0 - Iron deficiency anemia secondary to blood loss (chronic) (4) Hypertension, essential: Code(s): I10 - Essential (primary) hypertension Category: Medical (5) Rheumatoid arthritis: Code(s): M06.9 - Rheumatoid arthritis, unspecified Category: Medical Qualifiers: Rheumatoid arthritis location: other site Rheumatoid factor presence: unspecified presence Qualified Code(s): M06.9 - Rheumatoid arthritis, unspecified (6) Hypoalbuminemia due to protein-calorie malnutrition: Code(s): E88.09 - Other disorders of plasma-protein metabolism, not elsewhere classified; E46 - Unspecified protein-calorie malnutrition Category: Medical (7) Pressure sore on buttocks: Code(s): L89.309 - Pressure ulcer of unspecified buttock, unspecified stage Category: Medical Qualifiers: Laterality: unspecified laterality Pressure injury stage: stage 2 Qualified Code(s): L89.302 - Pressure ulcer of unspecified buttock, stage 2 (8) History of stroke: Code(s): Z86.73 - Personal history of transient ischemic attack (TIA), and cerebral infarction without residual deficits Category: Medical Plan Chief Complaint on going care follow up for multiple medical problem History The patient is a 64-year-old male presenting with management and follow-up for multiple chronic conditions. Hypertension: - Initial mention of elevated blood pressure of 160/83 when the patient is experiencing anxiety or has missed medication doses. - Chronic elevation with blood pressure readings typically around 158-160 systolic. - No additional antihypertensive medications have been added , patient has been visiting ER frequently due to failiur to thrive and blood transfusions , he has not been seen physically in this clinic for months due to difficulty with transport as he is bed ridden and need ambulance for transport Rheumatoid Arthritis: - pain managed by a regimen of Tramadol and Tylenol.. Anemia: - Chronic than requires regular blood transfusions every couple of months. - Attributed to rheumatoid arthritis and other chronic conditions. Wound Care: - Chronic wound resulting in a sore on the scrotum, initially exacerbated by urinary catheter use. - Wound size has decreased significantly with ongoing debridement and wound care managed by visiting nurse services. Thromboembolism (Clot) & Anticoagulation: - Developed a clot in the left upper extremity, diagnosed using ultrasound at [facility] ER visit - Currently on Eliquis for a three-month duration to prevent further thromboembolic events. - Concerns over bleeding risks due to existing anemia and the use of Eliquis. Depression and Cognitive Deficit: - Chronic conditions affecting the patient's mental health and cognitive function. - take sertraline Medical History: - Chronic hypertension - Rheumatoid arthritis - Anemia requiring regular transfusions - Cognitive deficits - Depression - Hypothyroidism - History of thromboembolism - Bedbound with history of recurrent ER visits due to anemia Medications: - Tramadol, 50 mg twice daily for pain management associated with rheumatoid arthritis. - Tylenol for additional pain control and rheumatoid arthritis. - Amlodipine for hypertension management. - Simvastatin, reduced from 40 mg to 20 mg for hyperlipidemia. - Eliquis, 5 mg twice daily for anticoagulation post-thromboembolism. - Leflunomide 20 mg - Vit and iron supplment Social History: - Primary display artist is the patient's spouse. - Ambulatory limitations necessitate transport by ambulance, covered by [employer]. - Regular home visits by care aides and nurses for wound management and support. - Home mobility includes use of a wheelchair, indicating functional dependency. Problem List - Hypertension - Rheumatoid arthritis - Anemia - Cognitive deficits - Depression - Hypothyroidism - Thromboembolism - Chronic scrotal wound Diagnostic results - Labs: Pending blood test results done at home - Tests and Diagnostics: Clot in the left upper extremity discovered via ultrasound [place] [facility] - Managed in conjunction with wound clinic, urology, and regular home nursing support. - [facility]. Medication Management - Continuation of Eliquis for three months as previously recommended due to clot. - Adjustment of Simvastatin dose from 40 mg to 20 mg. - Tramadol regimen continued with consideration of pain levels, especially during physical therapy. Medical Decision Making Given the complexity of the patient's chronic conditions, ongoing management focuses on stable maintenance of blood pressure with available medications, preventing further thromboembolic events with a three-month course of Eliquis, and managing pain and rheumatoid arthritis symptoms with non-opioid and opioid analgesics. Surgical interventions are not currently applicable, given the patient?s bedbound status. The focus is on preventing wound progression and minimizing infection risk through diligent care management and coordination with home health services. Addressing anemia remains vital to prevent further complications due to the use of anticoagulants. The impact of rheumatoid arthritis on hematopoiesis underscores the need for regular monitoring and management of his transfusion schedule. Monitoring and management decisions are tailored to prevent exacerbations of chronic conditions while maintaining quality of life. Patient Instructions - Continue to take all prescribed medications as directed. - Monitor blood pressure regularly and report readings, especially checking when calm and relaxed. - Attend follow-up wound care appointments as scheduled. - Inform healthcare provider of any signs of bleeding or increased bruising. - Ensure mobility with assistance and continue physical therapy exercises as able. - Coordinate with care aides for assistance as needed. Medications: New apixaban (Eliquis) 5 mg PO BID Refilled tramadol 50 mg PO BID PRN 60 tabs 0RF pain 30 days
== END 2025-03-09 09:16 | disposition home or self-care (01) ==
LOC: HO.HMCC 08:21
PROVIDERS: PCP Internal Medicine; Visit Provider Internal Medicine
DX: I82.622 Acute embolism and thrombosis of deep veins of left upper extremity (principal); R62.7 Adult failure to thrive; L89.302 Pressure ulcer of unspecified buttock, stage 2; M06.9 Rheumatoid arthritis, unspecified; D50.0 Iron deficiency anemia secondary to blood loss (chronic); I10 Essential (primary) hypertension; E88.09 Other disorders of plasma-protein metabolism, not elsewhere classified; E46 Unspecified protein-calorie malnutrition; Z86.73 Personal history of transient ischemic attack (TIA), and cerebral infarction without residual deficits

== ENCOUNTER → 2025-04-01 23:59 | Outpatient (BNV) | payer MEDICARE, MEDICAID, SELFPAY | PROVIDERS: PCP Internal Medicine; Visit Provider Internal Medicine | DX: T83.511A Infection and inflammatory reaction due to indwelling urethral catheter, initial encounter (principal); N39.0 Urinary tract infection, site not specified; N31.9 Neuromuscular dysfunction of bladder, unspecified | CPT/HCPCS: G0179 ==

== ENCOUNTER → 2025-06-11 23:59 | Outpatient (BNV) | payer MEDICARE, MEDICAID, SELFPAY | PROVIDERS: PCP Internal Medicine; Visit Provider Internal Medicine | DX: N31.9 Neuromuscular dysfunction of bladder, unspecified (principal); F32.A Depression, unspecified | CPT/HCPCS: G0180 ==

== ENCOUNTER → 2025-06-20 23:59 | Outpatient (BNV) | payer MEDICARE, MEDICAID, SELFPAY | PROVIDERS: PCP Internal Medicine; Visit Provider Internal Medicine | DX: L89.154 Pressure ulcer of sacral region, stage 4 (principal); L89.812 Pressure ulcer of head, stage 2; N31.9 Neuromuscular dysfunction of bladder, unspecified | CPT/HCPCS: G0180 ==

== ENCOUNTER 2025-07-20 08:10 | Outpatient (AMB) | payer MEDICARE, MEDICAID, SELFPAY ==
--- OUTSIDE RECORDS SUMMARY | 2025-07-19 23:59 | XMS_ITS | Continuity of Care Document ---
Author Organization [facility] Address [address] [place] [id number] Care Team Providers Care Limnologist Name Role Phone Darius PETTY, [facility] Primary Care Physician Encounter [facility] Date(s): 06/19/25 - 07/19/[address] [place] [id number] Attending Physician: Stacey Swan Admitting Physician: AdmtrStacey Referring Physician: Admtr, [id number] Encounter Type: Triage Allergies, Adverse Reactions, Alerts Substance Criticality Severity Reaction Reaction Severity Status morphine hives Active Immunizations Given and Recorded Vaccine Date Status Refusal Reason influenza virus vaccine, inactivated 1 07/03/24 Gi chris influenza virus vaccine, inactivated 06/05/21 Sesar rded influenza virus vaccine, inactivated 08/31/19 Sesar rded influenza virus vaccine, inactivated 09/25/15 Give n influenza virus vaccine, inactivated 2 05/28/12 Gi chris influenza virus vaccine, inactivated 06/20/11 Give n [id number] 12y+ bivalent booster vax 10/23/22 Recorded SARS-CoV-2 (COVID-19) mRNA BNT-162b2 vac 08/06/21 Recorded SARS-CoV-2 (COVID-19) mRNA BNT-162b2 vac 12/17/20 Recorded SARS-CoV-2 (COVID-19) mRNA BNT-162b2 vac 11/26/20 Recorded tetanus/diphtheria/pertussis, acel(Tdap) 06/20/11 Given 1Early/Late Reason: Early/Late Reason: Med Not Available 2Admin Note: VIS 02/02/2012 Medications acetaminophen 325 mg oral tablet 650 mg, 2, tablet, By Mouth, 2 times a day, PRN, Refills 0, Maintenance, as needed, 03/25/25 11:32:00 AM EDT, Partial fill upon patient request if the prescription is for a schedule II opioid drug. Start Date: 03/25/25 Status: Ordered Medication Dispense Status: Completed Total Allowed Fills: 1 Fills Dispensed: 0 Eliquis 5 mg oral tablet 1 tablet = 5 mg, By Mouth, 2 times a day, # 180 tablet, 0 Refills, Maintenance, 01/22/25 9:00:00 PM EDT, Tablet, [facility] 1966, Partial fill upon patient request if the prescription is for a schedule II opioid drug., 188, cm, 01/17/25 14:23:00 EDT, Height, 60.2, kg, 01/16/25 23:15:00 EDT, Dry Weight Start Date: 01/22/25 Stop Date: 04/22/25 Status: Ordered Medication Dispense Status: Completed Quantity: 180.0 Unit: tablet Total Allowed Fills: 1 Fills Dispensed: 0 ferrous sulfate 325 mg oral enteric coated tablet 325 mg, By Mouth, Daily, # 90 each, Refills 1, Tot. Refills 1, Maintenance, 01/22/25 12:30:00 PM EDT, Route to Pharmacy Electronically, [facility] 1966, Partial fill upon patient request if the prescription is for a schedule II opioid drug., 188, cm, 01/17/25 14:23:00 EDT, Height, 60.2, kg, 01/16/25 23:15:00 EDT, Dry Weight Start Date: 01/22/25 Status: Ordered Medication Dispense Status: Completed Quantity: 90.0 Unit: each Total Allowed Fills: 2 Fills Dispensed: 0 levETIRAcetam 500 mg oral tablet = 750 mg, By Mouth, 2 times a day, # 60 tablet, 0 Refills, Maintenance, 07/13/25 1:57:00 PM EST, Tablet, [facility] 1967, Partial fill upon patient request if the prescription is for a scheduleII opioid drug., 188, cm, 06/06/25 12:07:00 EST, Height, 56.5, kg, 06/02/25 21:44:00 EDT, Dry Weight Start Date: 07/13/25 Status: Ordered Medication Dispense Status: Completed Quantity: 60.0 Unit: tablet Total Allowed Fills: 1 Fills Dispensed: 0 losartan 25 mg oral tablet 25 mg, By Mouth, Daily, # 60 tablet, Refills 1, Tot. Refills 1, Maintenance, 06/06/25 11:20:00 AM EST, Route to Pharmacy Electronically, [facility], Partial fill upon patient request if the prescription is for a schedule II opioid drug., 188, cm, 06/06/25 8:37:00 EST, Height, 56.5, kg,06/02/25 21:44:00 EDT, Dry Weight Start Date: 06/06/25 Stop Date: 10/04/25 Status: Ordered Medication Dispense Status: Completed Quantity: 60.0 Unit: tablet Total Allowed Fills: 2 Fills Dispensed: 0 mirtazapine 15 mg oral tablet 1 tablet, By Mouth, Daily at bedtime, # 30 tablet, 1 Refills, Maintenance, 01/20/25 11:30:00 AM EDT,[facility] 1967, 188, cm, 01/17/25 14:23:00 EDT, Height, 60.2, kg, 01/16/25 23:15:00 EDT, DryWeight Start Date: 01/20/25 Status: Ordered Medication Dispense Status: Completed Quantity: 30.0 Unit: tablet Total Allowed Fills: 2 Fills Dispensed: 0 Multivit Therapeutic/Minerals Tablet 1 tablet, By Mouth, Daily, 0 Refills, Maintenance, 03/08/24 7:46:00 AM EDT, Tablet, Partial fill uponpatient request if the prescription is for a schedule II opioid drug. Start Date: 03/08/24 Status: Ordered Medication Dispense Status: Completed Total Allowed Fills: 1 Fills Dispensed: 0 sertraline 25 mg oral tablet 1 tablet = 25 mg, By Mouth, Daily, # 90 tablet, 0 Refills, Maintenance, 08/23/24 2:37:00 PM EST, Tablet, Partial fill upon patient request if the prescription is for a schedule II opioid drug. Start Date: 08/23/24 Status: Ordered Medication Dispense Status: Completed Quantity: 90.0 Unit: tablet Total Allowed Fills: 1 Fills Dispensed: 0 simvastatin 20 mg oral tablet 20 mg, By Mouth, Daily at bedtime, # 90 tablet, Refills 1, Tot. Refills 1, Maintenance, 01/22/25 9:00:00 PM EDT, Route to Pharmacy Electronically, [facility] 1966, Partial fill upon patient request if the prescription is for a schedule II opioid drug., 188, cm, 01/17/25 14:23:00 EDT, Height, 60.2, kg, 01/16/25 23:15:00 EDT, Dry Weight Start Date: 01/22/25 Stop Date: 07/21/25 Status: Ordered Medication Dispense Status: Completed Quantity: 90.0 Unit: tablet Total Allowed Fills: 2 Fills Dispensed: 0 traMADol 50 mg oral tablet 1 tablet = 50 mg, By Mouth, Every 12 hours, # 12 tablet, 0 Refills, Maintenance, 07/15/24 9:12:00 AM EST, Tablet, [facility] 3, Partial fill upon patient request if the prescription is for a schedule II opioid drug., 187.96, cm, 07/15/24 6:51:00 EST, Height, 53, kg, 07/02/24 10:15:00 EST, Dry Weight Start Date: 07/15/24 Status: Ordered Medication Dispense Status: Completed Quantity: 12.0 Unit: tablet Total Allowed Fills: 1 Fills Dispensed: 0 vancomycin 125 mg oral capsule = 125 mg, By Mouth, Every 6 hours, Indication for Use: C. difficile colitis. will need 2 week totalcourse, # 46 capsule, 0 Refills, Maintenance, 07/13/25 1:57:00 PM EST, Capsule, [facility] 1966, Partial fill upon patient request if the prescription is for a schedule II opioid drug., 188, cm, 06/06/25 12:07:00 EST, Height, 56.5, kg, 06/02/25 21:44:00 EDT, Dry Weight Start Date: 07/13/25 Status: Ordered Medication Dispense Status: Completed Quantity: 46.0 Unit: capsule Total Allowed Fills: 1 Fills Dispensed: 0 Vashe Topical Solution 475 mL, Topically, Every other day, See wound care instructions, 0 Refills, Maintenance, Solution Start Date: 03/08/24 Status: Ordered Medication Dispense Status: Completed Total Allowed Fills: 1 Fills Dispensed: 0 Vitamin B1 100 mg oral tablet 100 mg, 1, tablet, By Mouth, Daily, # 10 tablet, Refills 0, Maintenance, 01/16/25 5:46:00 PM EDT, Partial fill upon patient request if the prescription is for a schedule II opioid drug. Start Date: 01/16/25 Stop Date: 01/26/25 Status: Ordered Medication Dispense Status: Completed Quantity: 10.0 Unit: tablet Total Allowed Fills: 1 Fills Dispensed: 0 Vitamin D3 1000 intl units oral tablet 1 tablet = 25 mcg, By Mouth, Daily Start Date: 10/30/23 Status: Ordered Medication Dispense Status: Completed Total Allowed Fills: 1 Fills Dispensed: 0 Problem List Condition Confirmation Course Effective Dates Status H ealth Status Informant Anemia Confirmed Active Stroke/cerebrovascul ar accident Confirmed Active Dementia Confirmed Active Depression Confirmed Active GERD (gastroesophageal reflux disease) Confirmed Active Generalized anxiety disorder Confirmed Active Goiter Confirmed Active History of CVA with residual deficit Confirmed Active History of partial thyroidectomy Confirmed Active HLD (hyperlipidemia) Confirmed Active HTN (hypertension) Confirmed Active Mood disorder Confirmed Active Neurogenic bladder Confirmed Active Sacral osteomyelitis Confirmed Active Pressure ulcer of sacral region, unspecified stage Confirmed Active Rheumatoid arthritis Confirmed Active Underweight Confirmed Active 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 Confirmed Active Patient Care team information Care Team Personnel Name: Rodriguez Guzmán RN Position: [facility] RN Member Role: Primary Care Nurse Name: Betzy Casanova RN Position: [facility] RN Member Role: Primary Care Nurse Name: Sherwin Turner RN Position: [facility] RN Member Role: Primary Care Nurse Name: Dolly Foote RN Position: [facility] RN Member Role: Primary Care Nurse Name: Dana Rojas Position: [facility] RN Member Role: Primary Care Nurse Name: Hayden Andrade RN Position: [facility] RN Member Role: Primary Care Nurse Name: Michael Baxter RN Position: [facility] RN Member Role: Primary Care Nurse Name: Manda Boucher RN Position: [facility] RN Member Role: Primary Care Nurse Name: Gabby Cifuentes RN Position: [facility] RN Member Role: Primary Care Nurse Name: Umm Shaffer RN Position: [facility] RN Johnnie Member Role: Primary Care Nurse Name: Debbie Chowdary RN Position: [facility] RN Member Role: Primary Care Nurse Name: Capri Nguyen RN Position: [facility] RN Member Role: Primary Care Nurse Name: Lucia Cespedes RN Position: [facility] RN Member Role: Primary Care Nurse Name: Viviana Florian LPN Position: [facility] RN Member Role: Primary Care Nurse Name: Aure Hernández Position: [facility] RN Member Role: Primary Care Nurse Name: Edi Strauss RN Position: [facility] RN Member Role: Primary Care Nurse Name: Eliud Ochoa RN Position: [facility] ED RN W/OE and Tasks Member Role: Primary Care Nurse Name: Alea Vela RN Position: [facility] RN Member Role: Primary Care Nurse Name: Abram Pruett RN Position: [facility] RN Member Role: Primary Care Nurse Name: Glendy Herring RN Position: [facility] RN Member Role: Primary Care Nurse Name: Moon Barahona RN Position: [facility] RN Member Role: Primary Care Nurse Name: Beronica Vega RN Position: [facility] RN Member Role: Primary Care Nurse Name: Jack Jimenez RN Position: [facility] RN Member Role: Primary Care Nurse Name: Jared Gaston RN Position: [facility] RN Member Role: Primary Care Nurse Name: Delma Callahan RN Position: [facility] RN Member Role: Primary Care Nurse Name: Jeremías Bowen RN Position: [facility] RN Member Role: Primary Care Nurse Name: Maribeth Guzman RN Position: [facility] RN Member Role: Primary Care Nurse Name: Ginger Heard RN Position: [facility] OB RN Member Role: Primary Care Nurse Name: Mervin Lara RN Position: [facility] RN Member Role: Primary Care Nurse Name: Urvashi Chew RN Position: [facility] RN Member Role: Primary Care Nurse Name: Lisa Harvey RN Position: [facility] RN Member Role: Primary Care Nurse Name: Radha Rojas RN Position: [facility] RN Member Role: Primary Care Nurse Name: Sandy Wellington RN Position: [facility] RN Member Role: Primary Care Nurse Name: Esperanza Dean RN Position: [facility] OB RN Member Role: Primary Care Nurse Name: Katelyn Mccoy MD Position: Reference Physician Member Role: PCP Address: [address] [place], [place] - [place] Telecom: Name: Nydia Lopez RN Position: [facility] RN Member Role: Primary Care Nurse Name: Juanis De La O RN Position: [facility] RN Member Role: Primary Care Nurse Name: Michaela Corea MD Position: [facility] Renal MD Member Role: Lifetime Consulting Physician Address: [address] [facility] [place] [address]- Telecom: Name: Zuleyka Jauregui RN Position: [facility] RN Member Role: Primary Care Nurse Name: Yoli Liao RN Position: [facility] RN Member Role: Primary Care Nurse Name: Susan Sharpe RN Position: [facility] RN Member Role: Primary Care Nurse Name: Kameron Peters RN Position: [facility] RN Member Role: Primary Care Nurse Name: Roberto Burkett RN Position: [facility] RN Member Role: Primary Care Nurse Name: Ruben Calle RN Position: [facility] RN Member Role: Primary Care Nurse Name: Harini Carrillo RN Position: [facility] Onco RN Member Role: Primary Care Nurse Name: Raymond Grossman LPN Position: [facility] RN Member Role: Primary Care Nurse Name: Jason Tang RN Position: [facility] RN Member Role: Primary Care Nurse Name: Lynne High RN Position: [facility] RN Member Role: Primary Care Nurse Name: Polly Mccartney RN Position: [facility] RN Member Role: Primary Care Nurse Name: Subhash Bolaños RN Position: [facility] RN Member Role: Primary Care Nurse Name: Capri Jurado RN Position: [facility] RN Member Role: Primary Care Nurse Name: Cortney Hudson RN Position: [facility] RN Member Role: Primary Care Nurse Name: Arturo Dexter RN Position: [facility] RN Member Role: Primary Care Nurse Name: Frandy Perez RN Position: [facility] RN Member Role: Primary Care Nurse Name: Narendra Jaimes RN Position: [facility] RN Member Role: Primary Care Nurse Name: Dari Quiroz RN Position: [facility] RN Member Role: Primary Care Nurse Name: Anaya Serrano Position: [facility] RN Member Role: Primary Care Nurse Name: Rob Serrano RN Position: [facility] RN Member Role: Primary Care Nurse Name: Nichol Wray RN Position: [facility] RN Member Role: Primary Care Nurse Name: Zuleyka Kline RN Position: [facility] RN Member Role: Primary Care Nurse Name: Yash RNZuleyka Position: [facility] RN Member Role: Primary Care Nurse Name: Lupe Florentino RN Position: [facility] RN Member Role: Primary Care Nurse Name: Priscilla Butler RN Position: [facility] RN Member Role: Primary Care Nurse Name: Quiana Post RN Position: [facility] RN Member Role: Primary Care Nurse Name: Steph Aquino RN Position: [facility] RN Member Role: Primary Care Nurse Name: Kianna Negrete RN Position: [facility] RN Member Role: Primary Care Nurse Name: Soniya Suggs RN Position: [facility] RN Member Role: Primary Care Nurse Name: Nila Mccarthy LPN Position: [facility] RN Member Role: Primary Care Nurse Name: Michael Mabry RN Position: [facility] RN Member Role: Primary Care Nurse Care Team Related Persons Name: CHESTER TARA Name: CHESTER LUCIA Name: MICHAEL BRIGGS JR Name: ANDRIA BRIGGS Insurance Providers Guarantor name: [employer] Health Plan Information #: 1 Payer: MEDICARE A INPT 26 Payer Identifier: Member Number: [id number] Group Number: Subscriber Identifier: Relationship to Subscriber: self Coverage Type: MEDICARE Coverage Verification Date: Telecom: NA Address: Health Plan Information #: 2 Payer: [employer] Payer Identifier: NA Member Number: [id number] Group Number: Subscriber Identifier: Relationship to Subscriber: self Coverage Type: MEDICAID Coverage Verification Date: Telecom: Address:
--- OUTSIDE RECORDS SUMMARY | 2025-07-20 08:15 | XMS_ITS | Clinical Summary ---
Author Organization [facility] it Address [address] [place] [address] Care Team Providers Care Livestock Farmer Name Role Phone Katelyn Mccoy MD Primary Care Provider Social History Tobacco Use Types Packs/Day Years Used Date Smoking Tobacco: Never Assessed Sex and Gender Information Value Date Recorded Sex Assigned at Not on file Legal Sex Male 11:30 PM EST Gender Identity Not on file Sexual Orientation Not on file Plan of Treatment Health Maintenance Due Date Last Done Comments Colorectal Cancer Screening: Colonoscopy 1960 Pneumococcal Vaccine: 50+ Years (1 of 1 - PCV) 2008 Zoster Vaccines (1 of 2) 2008 DTaP,Tdap,and Td Vaccines (2 - Td or Tdap) 06/20/2021 06/20/2011 Abdominal Aortic Aneurysm (AAA) Screen 07/06/2022 Cholesterol Screening (Lipid Panel) 07/06/2022 Hepatitis C Screening 07/06/2022 Social Influencers of Health Screening 07/06/2022 Falls Risk Assessment 2023 Hypertension/CHF/CAD Annual BMP Blood Test 07/21/2024 Depression Screening 08/03/2024 COVID-19 Vaccine ( - season) 2025 08/06/2021, 12/17/2020, 11/26/2020 Influenza Vaccine (#1) 2025 , 06/05/2021, 08/31/2019, [...] Documents on File Type Date Recorded Patient Lan Administrator Expl anation Health Care Decision (hx) 07/13/2023 PHOENIX MARTINEZ DIRECTIVE Care Teams Livestock Farmer Relationship Specialty Start Date End Date Katelyn Mccoy MD [address] [place] [address] PCP - General Internal Medicine 07/01/21
--- OUTSIDE RECORDS SUMMARY | 2025-07-20 08:15 | XMS_ITS | Clinical Summary ---
Author Organization [facility] Address [address] [facility] [address] [place] [address] Phone Care Team Providers Care Biophysics Scientist Name Role Phone Unavailable Primary Care Provider [...] 02/02/2023 Active Cholecalciferol (Vitamin D3) 1.25 MG (05280 UT) capsule TAKE 1 CAPSULE BY MOUTH [...]
--- NOTE | 2025-07-20 08:58 | A.OFFPC_ITS ---
Intake Visit Reasons: 3m follow up Allergies No Known Allergies Allergy (Verified 09/22/24 08:27) Medication List - Last Reconciled 07/20/25 by Katelyn Mccoy MD [Adjustable pressure release mattress As directed] amlodipine 10 mg PO DAILY 90 days apixaban (Eliquis) 5 mg PO BID ascorbic acid (vitamin C) (Vitamin C) 500 mg PO BID [bedside table As directed] [Boost supplement 1 boost supplement three times per day NS] cane As directed cholecalciferol (vitamin D3) 25 mcg PO DAILY 90 days cyanocobalamin (vitamin B-12) 1,000 mcg PO DAILY [Disposable brief Use for episodes of bowel incontinence. ] disposable gloves Large gloves use as directed ferrous sulfate 325 mg PO BID Held on 07/20/25. Instructions: level 3300 07/13/25 food supplemt, lactose-reduced (Ensure Original oral liquid) 4 ea PO DAILY [Gait belt As directed] [Hinged knee brace As directed] Knee brace As directed leflunomide 20 mg PO DAILY metoprolol tartrate 100 mg PO BID omeprazole 20 mg PO BID [Raised toilet seat with arms As directed] sennosides (Senokot) 8.6 mg PO BID sertraline 25 mg PO DAILY [Shower bench As directed] simvastatin 40 mg PO BEDTIME [slide transfer board As directed] tramadol 50 mg PO BID PRN 30 days Transfer Bench As directed [Transfer bench As directed] [Washable bed pads Use As directed] [Wheelchair As directed] [wheelchair As directed] Tobacco use date assessed: 09/22/24 Dental Screening Dental Screen Date: 09/22/24 HPI HPI Comments History of Present Illness Details History of Present Illness The patient is a 65 year old male presenting for follow-up and management of multiple chronic medical problems after a recent hospitalization. Seizure Disorder: - The patient experienced a seizure appr oximately one month ago and was initiated on Keppra. - He was recently hospitalized for a [facility] emergency room seizure, which was thought to be secondary to a urinary tract infection. - During the hospitalization, his Keppra dosage was increased to 750 mg twice daily. Recurrent Urinary Tract Infections: - The patient has a history of recurrent urinary tract infections, which are associated with a chronic indwelling Holloway catheter. - A UTI was diagnosed and treated during his recent hospitalization. - An appointment is scheduled with urolo gy to discuss alternatives to the indwelling catheter, such as a PureWick system or a suprapubic catheter, to prevent future infections. Anemia: - The patient has chronic anemia that re quires recurrent blood transfusions, which he typically receives every 4 to 5 weeks. - He had not required a transfusion for two months prior to his most recent one. - During his hospitalization on the of the month, his hemoglobin was 7.3 g/dL and subsequently dropped to 6.0 g/dL, necessitating a blood transfusion. - A recent hemoglobin level was noted to be 9.3 g/dL, which may be factitiously elevated due to dehydration. Iron Overload: - Recent lab results revealed a signific [place]ly [place] 3365. - The patient has been taking ferrous king lfate, and it has been determined that his anemia is not due to iron deficiency. Deep Vein Thrombosis: - He has a history of DVT and is on Eliq uis 5 mg twice daily, with a planned completion date of 07/17/2025. - On the of the month, he presented with upper extremity swelling, but an ultrasound was negative for DVT. Other Chronic Conditions: - He is bedridden and has a history of C VA, rheumatoid arthritis, hyperlipidemia, hypertension, a sacral pressure sore, depression, and malnutrition. - His recent hospital course was complic ated by a C. difficile infection, which was treated with oral vancomycin. - He receives care for his sacral wound from Dr. Baugh every three weeks. Medical History: - Bedridden status - Hospitalization on of this month at [facility] for breakthrough seizure and UTI. - History of cerebrovascular accident (C VA) - History of deep vein thrombosis (DVT) - Rheumatoid arthritis - Hyperlipidemia - Hypertension - Sacral pressure sore - Depression - Malnutrition - Recurrent urinary tract infections (UT Is) - Anemia requiring recurrent transfusion s - 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 - Seizure disorder, new onset approximat derian 1 month ago - Clostridioides difficile infection dur ing recent hospitalization Medications: - Simvastatin 20 mg for hyperlipidemia - Sertraline 25 mg for depression - Mirtazapine 25 mg - Losartan 25 mg for hypertension - Keppra 750 mg twice a day for seizures (dose increased from 500 mg) - Ferrous sulfate for anemia (to be disc ontinued) - Vitamin D - Eliquis 5 mg twice a day for DVT - Tramadol for pain, taken once or twice daily - Omeprazole has been discontinued Social History: - Functional Status: The patient is bedr idden and is reportedly getting weaker. 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 - Nutritional Intake: He drinks one to t wo bottles of water per day, with additional fluid intake from tea, hot chocolate, and Neri-Aid. Diagnostic Results: - Labs: Hemoglobin was 7.3 g/dL on the 08 03 of the month, which dropped to 6 g/dL, requiring a transfusion. - Labs: A recent hemoglobin level was 9. 3 g/dL. - Labs: Iron level was noted to be very high at 3365. - Labs: Kidney functions are fine. - Imaging: Ultrasound of the upper extre mity on the of the month was negative for DVT. [facility] Medical History Knee arthropathy Vitamin D deficiency Helicobacter pylori (H. pylori) Tubular adenoma Dysphagia Non-toxic multinodular goiter Other and unspecified hyperlipidemia Cerebrovascular accident Coronary artery disease History of stroke Lipid disorder Hypertension, essential Surgical History Hx of thyroidectomy Hx of ultrasound guided needle biopsy History of esophagogastroduodenoscopy (EGD) History of colonoscopy Family History Father Dementia Mother HTN (hypertension) Brother Mental health disorder Substance use disorder Social History Household Members: Spouse Housing: Condominium Alcohol intake: never Comment: right sided weakness Patient Tobacco Use Status: Never used Tobacco e-Cigarette/Vaping Use: Never Used Second Hand Smoke Exposure: Yes ( smokes) Advance Directives Date on File: 12/11/22 service: No Current occupational status: disabled Cognitive needs: No Hearing needs: No Vision needs: No Questionnaire Thrive Questionnaire Date Thrive assessed: 08/18/24 MAGO-7 AMB Questionnaire MAGO-7 Date MAGO - 7 assessed: 08/18/24 Source: Developed by Drs. Chapin Aguilar, Karen Camargo, Tunde Lyles and colleagues, with an educational lu from [employer]. Review of Systems Narrative Review of Systems - Constitutional: Reports feeling progressively weaker. - Neurological: History of seizures. - Genitourinary: Reports recurrent UTIs and has a chronic indwelling catheter. - Musculoskeletal: Reports pain secondary to rheumatoid arthritis. - Integumentary: Reports a sacral pressure sore. - Extremities: Reports recent swelling in an upper extremity. - General: No fever no chills - Neurological: No headaches - Ear nose throat: No sore throat no hearing difficulty no ear pain - Cardiovascular: No syncope, no chest pain, no palpitations - Gastrointestinal: No nausea vomiting or diarrhea Physical exam (Primary Care) Tobacco/Smoking Status: Tobacco use Status Tobacco use date assessed 09/22/24 07/20/25 09:07 Patient Tobacco Use Status Never used Tobacco 07/20/25 09:07 e-Cigarette/Vaping Use Never Used 07/20/25 09:07 Thrive Assessment: Date of Thrive Assessment Date Thrive assessed 08/18/24 07/20/25 09:07 Narrative Telehealth Telehealth Telehealth Platform: [facility] Location of provider rendering services: practice address Location of patient: address on file Patient Identification confirmed using: Name, : Yes Telehealth method: video Patient verbally consented to treatment: Yes Patient verbally consented to billing insurance company: Yes Patient informed of any privacy concerns related to visit: Yes Coding Level of Care Code Tele Est Pt Level 5 (24261) Diagnoses Failure to thrive syndrome, adult R62.7 Other epilepsy without status epilepticus, not intractable G40.802 Epilepsy type: other Intractability: not intractable Status epilepticus: without status epilepticus Anemia in chronic illness D63.8 Hypoalbuminemia due to protein-calorie malnutrition E88.09; E46 Elevated ferritin level R79.89 Recurrent UTI N39.0 Mild protein-calorie malnutrition E44.1 Malnutrition type: protein-calorie malnutrition Protein-calorie malnutrition severity: mild Moderate episode of recurrent major depressive disorder F33.1 Active/Remission status: currently active Major depression episode severity: moderate Hypertension, essential I10 Rheumatoid arthritis of other site, unspecified whether rheumatoid factor present M06.9 Rheumatoid arthritis location: other site Rheumatoid factor presence: unspecified presence Pressure injury of buttock, stage 2, unspecified laterality L89.302 Laterality: unspecified laterality Pressure injury stage: stage 2 History of stroke Z86.73 Bedridden Z74.01 Lipid disorder E78.9 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 Z92.29 Leg weakness, bilateral R29.[address] Z96.0 Time Spent (min) 40 Comment review hospital notes, discussion with , coordination of care Assessment & Plan Assessment & Plan (1) Failure to thrive syndrome, adult: Code(s): R62.7 - Adult failure to thrive Category: Medical (2) Epilepsy: Code(s): G40.909 - Epilepsy, unspecified, not intractable, without status epilepticus Category: Medical Qualifiers: Epilepsy type: other Intractability: not intractable Status epilepticus: without status epilepticus Qualified Code(s): G40.802 - Other epilepsy, not intractable, without status epilepticus (3) Anemia in chronic illness: Code(s): D63.8 - Anemia in other chronic diseases classified elsewhere Category: Medical (4) Hypoalbuminemia due to protein-calorie malnutrition: Code(s): E88.09 - Other disorders of plasma-protein metabolism, not elsewhere classified; E46 - Unspecified protein-calorie malnutrition Category: Medical (5) Elevated ferritin level: Code(s): R79.89 - Other specified abnormal findings of blood chemistry Category: Medical (6) Recurrent UTI: Code(s): N39.0 - Urinary tract infection, site not specified Category: Medical (7) Malnourished: Code(s): E46 - Unspecified protein-calorie malnutrition Category: Medical Qualifiers: Malnutrition type: protein-calorie malnutrition Protein-calorie malnutrition severity: mild Qualified Code(s): E44.1 - Mild protein-calorie malnutrition (8) Major depression, recurrent: Code(s): F33.9 - Major depressive disorder, recurrent, unspecified Category: Medical Qualifiers: Active/Remission status: currently active Major depression episode severity: moderate Qualified Code(s): F33.1 - Major depressive disorder, recurrent, moderate (9) Hypertension, essential: Code(s): I10 - Essential (primary) hypertension Category: Medical (10) Rheumatoid arthritis: Code(s): M06.9 - Rheumatoid arthritis, unspecified Category: Medical Qualifiers: Rheumatoid arthritis location: other site Rheumatoid factor presence: unspecified presence Qualified Code(s): M06.9 - Rheumatoid arthritis, unspe cified (11) Pressure sore on buttocks: Code(s): L89.309 - Pressure ulcer of unspecified buttock, unspecified stage Category: Medical Qualifiers: Laterality: unspecified laterality Pressure injury stage: stage 2 Qualified Code(s): L89.302 - Pressure ulcer of unspecified buttock, stage 2 (12) History of stroke: Code(s): Z86.73 - Personal history of transient ischemic attack (TIA), and cerebral infarction without residual deficits Category: Medical (13) Bedridden: Code(s): Z74.01 - Bed confinement status Category: Medical (14) Lipid disorder: Code(s): E78.9 - Disorder of lipoprotein metabolism, unspecified Category: Medical (15) Hx of penitentiary use of blood thinners: Code(s): Z92.29 - Personal history of other drug therapy Category: Medical (16) Leg weakness, bilateral: Code(s): R29.898 - Other symptoms and signs involving the musculoskeletal system Category: Medical (17) Urinary catheter in place: Code(s): Z96.0 - Presence of urogenital implants Category: Medical Plan Plan - Medication Management: Discontinue ferrous sulfate due to significantly elevated iron levels. discuss it further with Hematology - After discussion with the patient's family, the decision was made to continue simvastatin for hyperlipidemia, but they will discuss simplifying the regimen with other family members. - Labs: Place an order for ongoing hemoglobin and iron level checks every two weeks. - Referrals: Place orders for referrals to both a neurologist for seizure management and a sheet metal operator for management of chronic anemia and iron overload. - Urological Care: The patient will follow up with his scheduled urology appointment with Dr. Cid to discuss alternatives to the chronic indwelling catheter to reduce the risk of recurrent UTIs. - Wound Care: Continue follow-up with the youth career specialist, Dr. Baugh, every three weeks. - Pain Management: Continue Tramadol once or twice daily as needed for pain, supplemented with Tylenol, for his rheumatoid arthritis. Orders: Referrals Hematology & Oncology Referral D63.8 - Anemia in other chronic diseases classified elsewhere, R79.89 - Other specified abnormal findings of blood chemistry Neurology Referral G40.802 - Other epilepsy, not intractable, without status epilepticus, Z86.73 - Personal history of transient ischemic attack (TIA), and cerebral infarction without residual deficits Medications: On Hold ferrous sulfate Hold Comment: level 3300 07/13/25 325 mg PO BID 60 tabs 4RF
== END 2025-07-20 09:03 | disposition home or self-care (01) ==
LOC: HO.HMCC 08:10
PROVIDERS: PCP Internal Medicine; Visit Provider Internal Medicine
DX: M06.9 Rheumatoid arthritis, unspecified (principal); G40.802 Other epilepsy, not intractable, without status epilepticus; F33.1 Major depressive disorder, recurrent, moderate; L89.302 Pressure ulcer of unspecified buttock, stage 2; R62.7 Adult failure to thrive; D63.8 Anemia in other chronic diseases classified elsewhere; E88.09 Other disorders of plasma-protein metabolism, not elsewhere classified; E46 Unspecified protein-calorie malnutrition; R79.89 Other specified abnormal findings of blood chemistry; N39.0 Urinary tract infection, site not specified; E44.1 Mild protein-calorie malnutrition; I10 Essential (primary) hypertension; Z86.73 Personal history of transient ischemic attack (TIA), and cerebral infarction without residual deficits; Z74.01 Bed confinement status; E78.9 Disorder of lipoprotein metabolism, unspecified; Z92.29 Personal history of other drug therapy; R29.898 Other symptoms and signs involving the musculoskeletal system; Z96.0 Presence of urogenital implants